=== PATIENT | female | born 1955 | race Caucasian/White ===

== ENCOUNTER → 2017-02-17 | Outpatient (CLI) | payer OTHER ==
[~2017-02-17] MED LIST: ALPRAZOLAM ER1 MG PO; ALPRAZOLAM PO; AMITRIPTYLINE H75 M1 PO; ARAVA20 MG PO; CEFDINIR300 MG PO; DAYPRO600 MG PO; DUONEB 2.5-0.5 M3 ML INH; FOSAMAX 70 MG T70 MG PO; HYDROCODON-ACE1 EAC5 PO; LATANOPROST 0.2.5 ML OPHTHALMIC; LEVAQUIN 500 M500 M2 PO; METHOTREXATE 22.5 M1 PO; MINOCIN100 MG PO; PREDNISONE 10 M10 M1 PO; PROMETHAZINE-C120 ML PO; PROTONIX40 M1 PO; SERTRALINE HCL100 MG PO; VENTOLIN HFA 1818 GM INH; XANAX1 MG PO
== END ==
LOC: ULTRA 01:31 → RAD 01:31
DX: Z12.31 Encounter for screening mammogram for malignant neoplasm of breast (principal)

== ENCOUNTER → 2018-02-22 | Outpatient (CLI) | payer OTHER | LOC: RAD 08:55 | DX: Z12.31 Encounter for screening mammogram for malignant neoplasm of breast (principal) ==

== ENCOUNTER 2018-06-30 14:20 | Inpatient (IN) | payer OTHER ==
[~2018-06-30] VITALS: Ht 147.3 cm; Wt 42.2 kg
[2018-06-30] MEDS ORDERED: PREDNISONE 5 MG5 M1 PO (17:18)
[2018-06-30] MEDS ORDERED: VENTOLIN HFA 1818 GM INH (17:19)
[2018-06-30] MEDS ORDERED: FLONASE 0.05%50 MCG NASAL (17:20)
[2018-06-30 17:30] VITALS: BP 141/65
[2018-06-30 20:00] VITALS: BP 142/78
[2018-07-01 05:18] LABS: RBC 2.63 mil/uL (4.20-5.00)
[2018-07-01 05:21] LABS: HEMATOCRIT 23.4 % (37.0-47.0); HEMOGLOBIN 7.4 gm/dL (12.0-15.0); MCH 28.2 pg (26.0-34.0); MCHC 31.7 g/dL (28.0-37.0); RDW 20.3 % (10.5-14.5); WBC 17.7 thou/uL (4.0-11.0)
[2018-07-01] MEDS ORDERED: PANTOPRAZOLE SO40 M1 PO (09:27)
[2018-07-01] MEDS ORDERED: CARAFATE 1 GM TA1 G1 PO (09:28)
[2018-07-01] MEDS ORDERED: NYSTATIN100000 UNI SW&SWALLOW (09:39)
[2018-07-01 15:17] VITALS: BP 169/93
[2018-07-01 15:48] VITALS: BP 169/93
--- NOTE | 2018-07-01 16:54 | NUR ---
Received pt this am post bloood tranfusion of 2 units. HgB now at 9.5 EGD done this morning, no issues identified. Pt is up at deng and able to ambulate on her own from the bed to the toilet. Was on clear liquid diet then transitioned to a soft then regular diet with no issues noted. Pt did compaint that she has difficulty in breathing, when checked by RT pleth is good and O2 sat are at 98%. Consulted Dr. Carey, prn done of alqprazolam given. DC instructions given to the pt. awaiting for pick up worker.
--- NOTE | 2018-07-02 11:39 | P ---
[facility] [place] [address] PROCEDURE REPORT Name: KATIE DUCKWORTH Room #: 454-P [facility] IN M.R.#: [id number] Admission: 06/30/18 Attend Phys: Matt Carey MD Discharge: 07/01/18 Date of : 51 Report #: [id number] THIS REPORT FOR: //name// CC: Matt Carey MD DATE OF SERVICE: 07/01/2018 PROCEDURE PERFORMED: Upper endoscopy with biopsies and bleeding control. HISTORY OF PRESENT ILLNESS: The patient is a 62-year-old female with recent near-syncopal episode and was noted to have severe anemia with a hemoglobin of 4.[address] Carey's office yesterday and she received 2 units of packed cells, hemoglobin in the 7 range now. She does have a history of melanotic stools, was taking Daypro b.i.d. as well as prednisone. No previous history of upper GI bleed. DESCRIPTION OF PROCEDURE: The risks and benefits of the procedure were explained to the patient, those risks including but not limited to bleeding, perforation, and the risk of sedation. She understood these risks and gave informed consent. Sedation was given using propofol per anesthesia. Next, using the standard Olympus upper endoscope, the scope was placed in the patient's mouth and advanced under direct vision through the esophagus, stomach, and into the second portion of the duodenum. The larynx was normal in appearance. The upper esophagus was normal. 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 No evidence of bleeding. At the GE junction, reflux, grade A erosive esophagitis was noted. No bleeding. Upon entering the stomach, a small hiatal hernia was noted. Overall, the gastric mucosa was normal in the fundus and upper body. In the prepyloric area, there was a large single ulcer of approximately 1.5 cm. There was no visible vessel, did have a clean white base. There was some inflammation on the edge, but no evidence of bleeding. The pylorus was normal and patent. In the duodenal bulb, there was total of 3 clean white-based ulcers. These ranged in size from 3-6 mm, no active bleeding, no visible vessel. The first portion of the duodenum was normal. In the second portion of the duodenum was a small nonbleeding AVM. I did proceed with cauterization of this. No evidence of bleeding after cautery. The scope was then brought back into the patient's stomach and biopsies were obtained to rule out H. pylori. At this point, the scope was then withdrawn and the procedure terminated. The patient tolerated the procedure well. IMPRESSION: 1. Jackelin esophagitis, likely. 2. Hiatal hernia. 3. Large prepyloric ulcer, likely source of recent gastrointestinal bleeding. 4. Three duodenal ulcers, also could have caused bleeding recently and anemia. [address] [address] PROCEDURE REPORT Name: KATIE DUCKWORTH Room #: 454-P [facility] IN M.R.#: [id number] Admission: 06/30/18 Attend Phys: Matt Carey MD Discharge: 07/01/18 Date of : 51 Report #: [id number] 5. Duodenal arteriovenous malformation, status post cautery. No active bleeding. RECOMMENDATIONS: 1. Await biopsy results. 2. Would recommend b.i.d. PPI therapy and Carafate for the next 2 weeks and then every day PPI therapy indefinitely. 3. Continue to hold Daypro at this time. 4. Plan is for repeat hemoglobin this afternoon. If stable, the patient will likely be discharged to home today. Thank you for allowing me to participate in her care. <ELECTRONICALLY SIGNED> By: Dae Tanner MD 07/02/18 1139 [id number] Dae Tanner MD /nt
--- NOTE | 2018-07-02 11:39 | HC ---
[facility] [place] [address] CONSULTATION Name: KATIE DUCKWORTH Room #: 454-P [facility] IN M.R.#: [id number] Admission: 06/30/18 Attend Phys: Matt Carey MD Discharge: 07/01/18 Date of : 51 Report #: [id number] THIS REPORT FOR: //name// CC: Matt Carey MD DATE OF SERVICE: 07/01/2018 HISTORY OF PRESENT ILLNESS: The patient is a 62-year-old female who is on Daypro on a long-term basis for rheumatoid arthritis. She is also on low dose prednisone. The patient had a syncopal episode in a background investigator's office several days ago. She had a followup with Dr. Carey, her primary, yesterday and hemoglobin in the office showed a level of 4.8. Therefore, the patient was admitted yesterday and was transfused 2 units of packed cells. Her hemoglobin today is 7.4. She does report melanotic type stools recently, feeling weak in general. Denies any abdominal pain. No previous history of GI bleed per the patient. Apparently had a colonoscopy 9 years ago that was negative. No family history of colon cancer. She was not on any PPI or antacid therapy. She denies any dysphagia or odynophagia. Her weight has been stable. PAST MEDICAL HISTORY: Rheumatoid arthritis, history of COPD. MEDICATIONS ON ADMISSION: Daypro 600 mg b.i.d., Xanax p.r.n., Ventolin, Elavil, Arava, sertraline, prednisone 5 mg, Flonase. REVIEW OF SYSTEMS: As per HPI. FAMILY HISTORY: Negative for colon cancer. ALLERGIES: TAPE. SOCIAL HISTORY: Previous smoker, denies any alcohol use. PHYSICAL EXAMINATION: VITAL SIGNS: The patient is afebrile, pulse in the 90s, blood pressure 142/78, respiratory rate 16, O2 sat 96%. GENERAL: She is alert and oriented x 3, in no acute distress. HEENT: Sclerae are nonicteric. Oropharynx is clear. NECK: Supple without lymphadenopathy. CARDIOVASCULAR: Regular rate and rhythm. CHEST: With mild decreased breath sounds bilaterally. ABDOMEN: Soft, nontender, nondistended, normoactive bowel sounds. EXTREMITIES: No cyanosis, clubbing or edema. LABORATORY DATA: WBC 17.7, hemoglobin 7.4 that is after 2 units of packed cells, platelet count is 580[place] [address] CONSULTATION Name: KATIE DUCKWORTH Room #: 454-P [facility] IN [facility]#: [id number] Admission: 06/30/18 Attend Phys: Matt Carey MD Discharge: 07/01/18 Date of : 51 Report #: [id number] ASSESSMENT AND PLAN: Anemia, recent melanotic stools. Plan is for esophagogastroduodenoscopy today, suspect upper gastrointestinal bleed. The patient has been on prednisone and Daypro. We will make further recommendations after endoscopy. <ELECTRONICALLY SIGNED> By: Dae Tanner MD 07/02/18 1139 [id number] Dae Tanner MD /nt
[2018-07-02] MEDS ORDERED: CLOTRIMAZOLE10 MG DISSOLVE (13:44)
[2018-07-02] MEDS ORDERED: BRIMONIDINE 0.110 ML (13:46)
== END 2018-07-01 18:35 | disposition home or self-care (01) | DRG 378 ==
LOC: 4W 14:20
PROVIDERS: ADMIT Family Medicine
PROC: 30233N1 Transfusion of Nonautologous Red Blood Cells into Peripheral Vein, Percutaneous Approach (ICD-10-PCS; principal; 2018-07-01)
PROC: 0DB68ZX Excision of Stomach, Via Natural or Artificial Opening Endoscopic, Diagnostic (ICD-10-PCS; principal; 2018-07-01)
PROC: 0D598ZZ Destruction of Duodenum, Via Natural or Artificial Opening Endoscopic (ICD-10-PCS; principal; 2018-07-01)
DX: K25.4 Chronic or unspecified gastric ulcer with hemorrhage (principal); B37.81 Candidal esophagitis; K31.811 Angiodysplasia of stomach and duodenum with bleeding; K26.4 Chronic or unspecified duodenal ulcer with hemorrhage; J44.9 Chronic obstructive pulmonary disease, unspecified; M06.9 Rheumatoid arthritis, unspecified; D64.9 Anemia, unspecified; K44.9 Diaphragmatic hernia without obstruction or gangrene; F41.9 Anxiety disorder, unspecified; K21.0 Gastro-esophageal reflux disease with esophagitis; Z87.891 Personal history of nicotine dependence; Z79.899 Other long term (current) drug therapy
CPT/HCPCS: 10047; 62110; 62900; 70005

== ENCOUNTER 2018-07-02 10:46 | Inpatient (IN) | payer OTHER ==
[2018-07-02] VITALS (7 sets, daily range): BP systolic 135–176; BP diastolic 71–99
[~2018-07-02] VITALS: Ht 147.3 cm; Wt 42.6 kg
--- NOTE | ~2018-07-02 | HC ---
[facility] [place] [address] CONSULTATION Name: KATIE DUCKWORTH Room #: 351-P ADM IN M.R.#: [id number] Admission: 07/02/18 ������������������ Attend Phys: Matt Carey MD Discharge: ������������������ Date of : 51 Report #: [id number] THIS REPORT FOR: //name// CC: Matt Carey DATE OF SERVICE: 07/07/2018 NEPHROLOGY CONSULTATION ATTENDING PHYSICIAN: Matt Carey M.D. REASON FOR CONSULTATION: Renal insufficiency and metabolic and respiratory acidosis. HISTORY OF PRESENT ILLNESS: This patient with long-standing rheumatoid arthritis and COPD, with known bronchiectasis was admitted to this hospital one week ago with anemia related to a prepyloric bleeding peptic ulcer, underwent blood transfusions and was discharged 2 days later. Subsequently, she was readmitted with worsening shortness of air. She was found to have pulmonary infiltrates and worsening exacerbation of COPD. She has been treated with steroids, and she was found to have an elevated serum creatinine, I believe, for the first time at 2.0, then up to 3.0 and now down to 2.4. She knows of no prior renal disease when she was hospitalized here. Four years ago, she had a creatinine as low as 0.9. She has no history of hypertension and there is no family history of renal disease. PAST MEDICAL HISTORY: She has rheumatoid arthritis, treated with Arava and sometimes with steroids. She has had multiple surgeries related to joint difficulties from her rheumatoid arthritis, including a joint replacement in her hand and plates in her wrist. MEDICATIONS: Home medications have included at times nonsteroidal anti-inflammatory drugs, Xanax p.r.n. anxiety, inhalers, amitriptyline 75 mg at bedtime, Arava 20 mg daily, sertraline 150 mg daily, prednisone 5 mg daily and Flonase nasal spray. SOCIAL HISTORY: She is a former heavy smoker, but she has quit. REVIEW OF SYSTEMS: GENERAL: She has been feeling poorly. EYES: Vision reasonably good. ENT: Very poor hearing. ENDOCRINE: No diabetes or thyroid disease. RESPIRATORY: Extreme shortness of air. CARDIAC: No chest pain, angina, history of heart disease or arrhythmias. [facility] [address] [place] [address] CONSULTATION Name: KATIE DUCKWORTH Room #: 351-P [facility] IN .R.#: [id number] Admission: 07/02/18 ������������������ Attend Phys: Matt Carey MD Discharge: ������������������ Date of : 51 Report #: [id number] GASTROINTESTINAL: Appetite fair to poor. GENITOURINARY: No dysuria, hematuria or renal stone disease. NEUROLOGIC: Just generalized weakness. MUSCULOSKELETAL: Rheumatoid arthritis, as mentioned, with lots of joint issues there. NEUROLOGIC: No seizure, syncope or stroke. PHYSICAL EXAMINATION: GENERAL: This is a chronically ill-appearing patient, looking older than her stated age. EYES: Vision is reasonably good. ENT: Very poor hearing. Mucous membranes moist. NECK: Supple. CHEST: Shows extremely tight wheezy chest. HEART: Distant, but regular. ABDOMEN: Soft and nontender, without bruits, masses or organomegaly. EXTREMITIES: Show 1- to 2+ peripheral edema. NEUROLOGIC: Generalized weakness. LABORATORY DATA: The hemoglobin is 8.1 with a white count of 14.4 and platelets of 187,000. Pulmonary arterial blood gas shows pH of 7.17, pCO2 of 45, pO2 of 66 and lactate is okay 0.79. Sodium 139, potassium 3, chloride 104, bicarbonate 19, BUN 57 and creatinine 2.4. ASSESSMENT AND PLAN: 1. Renal insufficiency, acute versus chronic, now clearly volume overloaded, although the edema may be due more to right sided than left-sided failure. I will discontinue the IV saline and administer some sodium bicarbonate tablets in an effort to improve the acidosis and thereby the circulation. I will also replace potassium with alkali in an effort also to improve the acidosis, which of course, has a respiratory as well as a metabolic component to it. For completeness, we will do renal sonography, paraprotein studies and urinary electrolytes. 2. Chronic obstructive pulmonary disease with severe exacerbation. She has fairly advanced lung disease. I do not know how much better she can get. Pulmonary will certainly work on that. 3. Rheumatoid arthritis, on Arava. 4. Metabolic and respiratory acidosis. ��������������������������������������������� ���������������������������������������� By: ��������������������������������������������� 1127 Eric Youssef MD /nt
--- NOTE | ~2018-07-02 | HC ---
[facility] [place] [address] CONSULTATION Name: KATIE DUCKWORTH Room #: 226-P ADM IN M.R.#: [id number] Admission: 07/02/18 ������������������ Attend Phys: Matt Carey MD Discharge: ������������������ Date of : 51 Report #: [id number] THIS REPORT FOR: //name// CC: Matt Carey DATE OF SERVICE: 07/10/2018 HISTORY OF PRESENT ILLNESS: The patient is a 62-year-old white female who had been admitted to [facility] with shortness of air, had a prepyloric ulcer, was admitted on 06/30/2018 and discharged on 07/01/2018. She unfortunately was readmitted on 07/02/2018 with respiratory distress, COPD, increased shortness of breath. She was diagnosed with acute respiratory failure with COPD exacerbation and had 2 recent transfusions for severe anemia, was diagnosed with deep pyloric ulcer also was noted to have renal insufficiency. She has been followed closely here at [facility] by Pulmonary Medicine as well as Nephrology. She has had a decline in her functional abilities and we are seeing her in rehabilitation medicine consultation. PAST MEDICAL HISTORY: Includes rheumatoid arthritis, right and left wrist plate, COPD, multiple finger and left hand artificial joint. ALLERGIES: TAPE. MEDICATIONS: Please see the full medication listing. This includes vitamins, herbals, and supplements per report. HABITS: Former smoker, quit greater than a year ago. No history of alcohol abuse. SOCIAL HISTORY: Lives in a house alone, did not utilize adaptive aids, are 2 steps in. Has significant arthritis, but was functional in the community without gait aids, was not on oxygen. She does have a friend that is a lady friend that lives right around the corner. REVIEW OF SYSTEMS: Did not offer any current complaints of chest pain. She does have shortness of breath with limited activities and has some wheezing. No abdominal discomfort, no current bowel or bladder changes. She is hard of hearing. Denies swallowing issues. She has the history of multi-joint arthritis and has had the multiple joint surgeries as noted above. PHYSICAL EXAMINATION: GENERAL: A 62-year-old small statured rather thin white female in no obvious distress. VITAL SIGNS: Last recorded temperature 97.9, pulse 110, respirations 20, blood pressure 177/100. She is alert, pleasant. HEENT: Appeared to be benign. She is on 2 liters nasal cannula. Facies are [address] [address] CONSULTATION Name: KATIE DUCKWORTH Room #: 226-P [facility] IN ..#: [id number] Admission: 07/02/18 ������������������ Attend Phys: Matt Carey MD Discharge: ������������������ Date of : 51 Report #: [id number] symmetric, quite hard of hearing. She has had the prior wrist and hand surgeries as noted above. EXTREMITIES: She does have some decreased range of motion. No active synovitis. Decreased end range of both shoulders. No significant discomfort with movement. NEUROLOGIC: Tone appeared to be intact. Strength of the upper extremities is probably a grade 3+ to 4-/5. DTRs are trace to 1. Lower extremities, no focal calf swelling, functional range of motion, strength is grade 4- to 3+/5. DTRs are trace to 1. Trace distal lower extremity edema. Sit to stand is min assist. Gait min assist 22 feet, no assistive device. Tends to be somewhat impulsive. ASSESSMENT: A 62-year-old white female with the following problems: 1. Pulmonary rehabilitation. 2. Acute on chronic hypoxemic hypercapnic respiratory failure. 3. Chronic obstructive pulmonary disease with exacerbation. 4. Metabolic acidosis. 5. Acute renal insufficiency. 6. Anemia, status post recent transfusions. 7. Pyloric ulcer. 8. Protein calorie malnutrition. PLAN: We are considering the patient for a possible acute 5 [facility] inpatient rehabilitation stay. We will continue to follow along with you regarding her rehab therapy needs. ��������������������������������������������� ���������������������������������������� By: ��������������������������������������������� [id number] Michael Orellana MD /PMT
[~2018-07-02 10:46] MED LIST changes: +CARAFATE 1 GM TA1 G1 PO; +FLONASE 0.05%50 MCG NASAL; +NYSTATIN100000 UNI SW&SWALLOW; +PANTOPRAZOLE SO40 M1 PO; +PREDNISONE 5 MG5 M1 PO
[2018-07-02 11:42] LABS: HEMATOCRIT 31.5 % (37.0-47.0); HEMOGLOBIN 9.8 gm/dL (12.0-15.0); MCH 26.9 pg (26.0-34.0); MCHC 31.1 g/dL (28.0-37.0); MCV 86.6 fL (80.0-100.0); RBC 3.63 mil/uL (4.20-5.00); RDW 17.9 % (10.5-14.5)
[2018-07-02 11:43] LABS: WBC 32.7 thou/uL (4.0-11.0)
[2018-07-02 11:44] LABS: PLATELET COUNT 373 thou/uL (150-400)
[2018-07-02 11:54] LABS: CALCIUM 9.4 mg/dL (8.5-10.1); POTASSIUM 3.9 mmol/L (3.5-5.1)
[2018-07-02 12:02] LABS: ALBUMIN 3.2 g/dL (3.4-5.0); TOTAL BILIRUBIN 0.6 mg/dL (<0.1-1.0); TOTAL PROTEIN 7.4 g/dL (6.4-8.2); TROPONIN-I 0.06 ng/mL (<0.06)
[2018-07-02 12:08] LABS: ABSOLUTE NEUTROPHILS 31.4 thou/uL (1.4-8.2); ANISOCYTOSIS 3+; NUCLEATED RBCS 1 /100WBC
[2018-07-02 12:09] LABS: HYPOCHROMASIA SLIGHT; POLYCHROMASIA SLIGHT
[2018-07-02 12:13] LABS: POIKILOCYTOSIS 1+; SCHISTOCYTES OCCASIONAL
[2018-07-02 12:29] LABS: BE(vivo) -7.3 mmol/L (-2 to +3); HCO3 19.3 mmol/L (22.0-26.0); PCO2 43.4 mmHg (35.0-45.0); PO2 142.3 mmHg (80.0-100.0); sO2 98.5 % (92.0-98.0)
[2018-07-02 12:30] LABS: pH 7.266 (7.360-7.450)
[2018-07-02] MEDS ORDERED: CLOTRIMAZOLE10 MG DISSOLVE (13:44)
[2018-07-02] MEDS ORDERED: BRIMONIDINE 0.110 ML (13:46)
--- NOTE | 2018-07-02 16:41 | NUR ---
ASSUMED PATIENT CARE FROM ED. UPON ARRIVAL TO UNIT PATIENTS IV WAS INFILTRATED. IV TEAM HAD TO COME REPLACE IV. ADMIT COMPLETED SEE CHARTED ASSESSMENT. PATIENT VERY ANXIOUS. XANAX ORDERED. HOME MEDS RESTARTED. STAND BY ASSIST TO COMMODE. PATIENT WAS JUST DISCHARGED YESTERDAY. PATIENT STATES THEY WERE UP ALL NIGHT BECAUSE OF SOA. IN ED PATIENTS SATS WERE IN THE 80'S. PATIENT ON 5L NC WITH SATS IN THE 90S. BREATHING TREATMENTS ORDERED. ABLE TO MAKE NEEDS KNOWN. WORKING TOWARD DC GOALS.
--- NOTE | 2018-07-02 17:37 | NUR ---
CONSULTED TO PLACE A PIV 3 TIMES IN 3 HOURS. DISCUSSED MIDLINE PLACEMENT WITH THE PATIENT AND SHE VERBALIZED UNDERSTANDING. A #4F POWERMIDLINE WAS PLACED PER HOSPITAL POLICY. LINE TRIMMED TO 12CM. DRESSING SECURED AND RELEASED FOR USE. CALLED TO RETURN 30MN LATER AFTER [facility] AND DRESSING WAS BLEEDING AND SATURATED. OLD DRESSING REMOVED AND PRESSER HELD X15MN. A NEW PRESSURE DRESSING APPLIED WELL COBAN TO SECURE. LINE IS WNL AND RELEASED FOR USE
--- NOTE | 2018-07-02 22:10 | EKG ---
[address] [address] ELECTROCARDIOGRAM REPORT Name: DONITAKATIE SINGLETON Room #: 355-P ADM IN M.R.#: [id number] ������������������ Admission: 07/02/18 ������������������ Attend Phys: Matt Carey MD Discharge: ������������������ Date of : 51 Report #: [id number] ����������������������������������������������������������������� [id number] THIS REPORT FOR: //name// [facility] ED Test Date: 2018-07-02 Test Time: 11:37:42 Pat Name: KATIE DUCKWORTH Department: Room: [facility] Gender: F Conference Translator: : 1955 Requested By: Lissa Steele Order Number: [id number] MD: Chalo Blank Measurements Intervals [place] Rate: 110 P: 75 FL: 138 QRS: 117 QRSD: 106 T: 66 QT: 322 QTc: 436 Interpretive Statements Sinus tachycardia Consider right atrial enlargement Low voltage with right axis deviation Electronically Signed On 07-02-2018 22:10:41 [employer] by Chalo Blank [email or web address] ��������������������������������������������� <ELECTRONICALLY SIGNED> ���������������������������������������� By: Chalo Blank MD ��������������������������������������������� 07/02/18 2210 1137 1137 MD AFSANEH Burleson
[2018-07-03 04:17] VITALS: BP 134/84
--- NOTE | 2018-07-03 04:17 | NUR ---
PT MAKING PROGRESS TOWARDS GOALS. PT HAD WHEEZES OVER ALL LUNG DIAL UPON INITIAL ASSESSMENT. THIS AM, LUNG DIAL CLEAR, DIMINISHED IN BOTH LOWER LOBES. PT STATES THAT SHE FEELS SHE IS BREATHING EASIER THIS MORNING.
[2018-07-03 07:13] VITALS: BP 145/85
[2018-07-03 11:15] VITALS: BP 140/94
--- NOTE | 2018-07-03 14:01 | NUR ---
ASSESSMENT-PT LIVES AT HOME ALONE. SHE WALKS ON HER OWN AND DOES HER OWN ADLS. PT USES NO EQUIPMENT AND HAS NOT HAD ANY HH SERVICES. PT DRIVES. PT DOES HER OWN COOKING, CLEANING AND LAUNDRY. PT HAS A FRIEND HONORIO IN THE AREA. FOLLOWING TO ASSIST WITH DC PLANNING.
--- NOTE | 2018-07-03 14:12 | NUR ---
ASSUMED PATIENT CARE AT 0715. A&OX4, ANXIOUS. PATIENT STATES THEY ARE FEELING BETTER TODAY THAN YESTERDAY. STAND BY ASSIST. PATIENT CALLS APPROPRIATELY. SCHEDULED BREATHING TREATMENTS. ANTIBIOTICS SCHEDULED. WORKING TOWARD DISCHARGE GOALS.
[2018-07-03 15:27] VITALS: BP 150/94
[2018-07-03 20:30] VITALS: BP 145/88
[2018-07-04 04:45] VITALS: BP 137/82
--- NOTE | 2018-07-04 05:27 | NUR ---
mild anxiety, responded well to PRN Xanax given. slept thru night. adequate oxygenation on 1.5liters, 95-97% pulse ox. able to use BSC to void. denies pain.
[2018-07-04 07:17] VITALS: BP 144/84
[2018-07-04 11:11] LABS: HEMATOCRIT 27.1 % (37.0-47.0); HEMOGLOBIN 8.6 gm/dL (12.0-15.0); MCH 27.5 pg (26.0-34.0); MCHC 31.9 g/dL (28.0-37.0); MCV 86.1 fL (80.0-100.0); RBC 3.15 mil/uL (4.20-5.00); RDW 19.2 % (10.5-14.5); WBC 21.3 thou/uL (4.0-11.0)
[2018-07-04 11:22] LABS: CALCIUM 10.1 mg/dL (8.5-10.1); POTASSIUM 3.9 mmol/L (3.5-5.1)
[2018-07-04 11:37] VITALS: BP 157/98
--- NOTE | 2018-07-04 12:15 | NUR ---
ASSUMED PATIENT CARE AT 0715. A&OX4. STAND BY ASSIST. LUNGS SOUNDING SLIGHTLY BETTER BUT STILL WHEEZY. PATIENT HAVING MULTIPLE BM'S. USING COMMODE. PATIENT TO START WALKING TO BATHROOM. POSSIBLE TRANSFER TO SENIOR SUITES. WORKING TOWARDS DISCHARGE GOALS.
[2018-07-04 15:14] VITALS: BP 160/95
[2018-07-04 20:14] VITALS: BP 143/89
[2018-07-05] VITALS (8 sets, daily range): BP systolic 127–166; BP diastolic 74–107
[2018-07-05 04:50] LABS: HEMATOCRIT 21.4 % (37.0-47.0); HEMOGLOBIN 6.8 gm/dL (12.0-15.0); MCH 27.5 pg (26.0-34.0); RDW 19.5 % (10.5-14.5)
[2018-07-05 04:51] LABS: CALCIUM 8.6 mg/dL (8.5-10.1); CREATININE 3.3 mg/dL (0.6-1.0); POTASSIUM 3.8 mmol/L (3.5-5.1)
[2018-07-05 04:52] LABS: MCHC 31.6 g/dL (28.0-37.0); RBC 2.46 mil/uL (4.20-5.00)
[2018-07-05 11:50] LABS: HCO3 15.7 mmol/L (22.0-26.0); PCO2 38.8 mmHg (35.0-45.0); PO2 99.4 mmHg (80.0-100.0); sO2 96.4 % (92.0-98.0)
[2018-07-05 11:51] LABS: pH 7.225 (7.360-7.450)
[2018-07-05 13:54] LABS: BE(vivo) -9.6 mmol/L (-2 to +3); HCO3 18.1 mmol/L (22.0-26.0); PO2 150.3 mmHg (80.0-100.0); pH 7.195 (7.360-7.450); sO2 98.4 % (92.0-98.0)
--- NOTE | 2018-07-05 14:18 | NUR ---
on-going assessment: patient had critical abg today. cm spoke with attending and pt/ot ordered and evals pending. cm will continue to follow to assist as needed.
--- NOTE | 2018-07-05 14:54 | NUR ---
Assumed care of patient at 0700. Patient is drowsy this morning, but arouses with stimuli. Appears alert and oriented, although [place] and forgetful at times. Seems anxious and can be impulsive at times, needs multiple cues when getting out of bed to use BSC. Vitals stable. Patient seemed to increase in lethargicness throughout morning, seems to be harder to arouse and patient asks, "why am I so sleepy?" Patient also continued to have very wheezy lung sounds - since early this morning. Dr. Carey notified and ABGs ordered - critical results. Order for Bipap and pulmonary consult. Placed on Bipap, tolerating so far. Dr. Reyes saw patient, ordered repeat ABG - pH still critical. To start on calcium carbonate and bipap setting changes. RT updated. Patient appears more alert and responsive this afternoon. Lungs sound less wheezy. Hemoglobin low today; transfused one unit PRBCs without any reactions noted. Onetime dose of 20 mg Lasix given post transfusion. Patient up with one assist to BSC. With 2 moderate sized loose BMs today. C.diff sample was cancelled by lab so discontinued isolation. Fall precautions in place. Not progressing towards POC. Will continue to monitor.
[2018-07-06 04:00] VITALS: BP 146/79
--- NOTE | 2018-07-06 04:40 | NUR ---
Patient making progress towards outcome goals. Tolerating BIPAP sats mid to upper 90's. Very winded with any activity. IVFluids infusing. Uses call light appropriately for needs. Vital signs and rhythm stable.
--- NOTE | 2018-07-06 05:30 | NUR ---
Patient tired of being on BIPAP all night, request to be taken off. Place on 2L/NC sats upper 90's, very winded, SOA and desats in mid 80's with any activity.
[2018-07-06 05:48] LABS: HEMOGLOBIN 8.1 gm/dL (12.0-15.0); MCH 28.3 pg (26.0-34.0); MCHC 32.4 g/dL (28.0-37.0); MCV 87.4 fL (80.0-100.0); RBC 2.86 mil/uL (4.20-5.00)
[2018-07-06 05:50] LABS: RDW 17.4 % (10.5-14.5); WBC 14.4 thou/uL (4.0-11.0)
[2018-07-06 06:00] LABS: CALCIUM 8.6 mg/dL (8.5-10.1)
[2018-07-06 07:30] VITALS: BP 159/81
[2018-07-06 11:28] VITALS: BP 174/98
--- NOTE | 2018-07-06 14:25 | NUR ---
ASSUMED PT CARE AT 0700. ALERT AND ORIENTED, ALTHOUGH SOMEIMTES FORGETFUL AND IMPULSIVE. HARD OF HEARING. VITAL SIGNS STABLE. UPON ASSESSMENT PATIENT LUNG SOUNDS DIMINISHED AND VERY WHEEZY. PATIENT ASKED IF HER LUNGS SOUNDED ANY BETTER AND STATED SHE FELT THAT SHE IS DOING BETTER COMPARED TO YESTERDAY. DOCTOR WANTED PATIENT UP AND WALKING TODAY WITH ASSISNANCE. PATIENT CURRENTLY SITTING UP IN CHAIR. PT/OT VISITED PATIENT TODAY. NO COMPLAINTS OF PAIN. PATIENT PROGRESSING TOWARDS GOAL.
--- NOTE | 2018-07-06 14:37 | NUR ---
Assumed care of patient at 0700. Vitals have been stable. Denies pain. Patient has been alert and oriented this shift, more alert than yesterday. Extremely [place]. Patient reports feeling improved. Has been off bipap since early this morning and has been maintaining oxygen saturations on 2L NC. Does desat down into mid 80s with activity. SOB with activity. Remains wheezy in all lung webster, more with activity. Working with therapies today; has been up in chair this afternoon. Up with SBA. Using BSC to void. No BMs today. Slowly progressing towards POC. Will continue to monitor.
--- NOTE | 2018-07-06 15:03 | NUR ---
on-going assessment: CM REVIEWED CHART AND MET WITH PATIENT AT THE BEDSIDE. PT IS SLOWLY PROGRESSING TOWARDS GOALS. PT IS CURRENTLY WEARING 2L OXYGEN AND DOES NOT HAVE OXYGEN AT HOME. PT REMAINS ON IV ANBX AND STEROIDS AT THIS TIME. CM WILL CONTINUE TO FOLLOW TO ASSIST NEEDED.
[2018-07-06 15:39] VITALS: BP 147/99
[2018-07-06 19:28] VITALS: BP 166/93
[2018-07-06 19:29] VITALS: BP 177/80
[2018-07-07] VITALS: BP 167/95
[2018-07-07 03:50] VITALS: BP 150/85
--- NOTE | 2018-07-07 05:47 | NUR ---
ASSUMED CARE OF PT AT 1900. A&Ox4, COOPERATIVE. SBP ELEVATED WAS 177 AND 167 DOCUMENTED. PHYSICIAN NOTIFIED, WILL SEE HER TODAY. REQUESTED XANAX SEVERAL TIMES. EDUCATION OF HOLD GIVEN D/T RESP STATUS, NOTIFIED PHYSICIAN OF REQUEST. MAINTAINED O2 AT 98-100 AT REST OVER NOC. DESAT'S W/ TRANSFER TO BSC TO HIGH 80'S BUT RECOVERS QUICKLY. BREATHING TIGHTER AND WHEEZY. AT 0530 WHEN UP TO COMMODE, RT CONTACTED AND BREATHING TX PROVIDED. STEADY TRANSFERS, SBA. C/O DECREASED HEARING. AUDITORY CANAL ASSESSED, SEVERELY IMPACTED W/ DARK BROWN CERUMEN, UNABLE TO VISUALIZE TM W/ OTOSCOPE. PHYSICIAN NOTIFIED. WILL SEE TODAY. SLOWLY PROGRESSING TOWARDS POC GOALS. WILL CONTINUE TO PROVIDE CARE AND MONITOR.
[2018-07-07 06:31] LABS: BE(vivo) -11.5 mmol/L (-2 to +3); HCO3 16.3 mmol/L (22.0-26.0); PCO2 45.7 mmHg (35.0-45.0); PO2 66.3 mmHg (80.0-100.0); sO2 87.7 % (92.0-98.0)
[2018-07-07 06:32] LABS: pH 7.171 (7.360-7.450)
[2018-07-07 07:43] LABS: CREATININE 2.4 mg/dL (0.6-1.0)
[2018-07-07 07:53] LABS: ALBUMIN 2.2 g/dL (3.4-5.0); TOTAL BILIRUBIN 0.3 mg/dL (<0.1-1.0); TOTAL PROTEIN 6.1 g/dL (6.4-8.2)
[2018-07-07 08:05] VITALS: BP 138/82
--- NOTE | 2018-07-07 12:27 | NUR ---
ON-GOING ASSESSMENT: CM REVIEWED CHART AND SPOKE WITH ATTENDING. PT IS SLOWLY PROGRESSING TOWARDS DISCHARGE GOALS. PT USING BIPAP AT HS AND ON IV STEROIDS/ANBX AND IS STILL ON 2L OXYGEN AND DOES NOT HAVE OXYGEN ARRANGED AT HOME. PT DOES NOT FEEL SHE WILL NEED HOME HEALTH AT DISCHARGE. CM SPOKE WITH ATTENDING WHO STATES PATIENT WILL BE HERE THROUGH THE WEEKEND. CM WILL CONTINUE TO FOLLOW TO ASSIST NEEDED.
[2018-07-07 16:43] VITALS: BP 159/74
--- NOTE | 2018-07-07 18:25 | NUR ---
ASSUMED PATIENT CARE AT 0700. A/O X4. ANXIOUS. OFF BIPAP AT 0930. PATIENT TOLERATED ON 4L/NC. UP WITH STB. SOB WITH EXERTION. POOR APPATIE. SLOWLY TOWARDS POC GOALS.
[2018-07-07 18:38] LABS: URINE BILIRUBIN NEGATIVE (Negative); URINE BLOOD 3+ (Negative); URINE CLARITY CLEAR; URINE COLOR YELLOW; URINE GLUCOSE-RANDOM* NEGATIVE (Negative); URINE KETONES NEGATIVE (Negative); URINE LEUKOCYTES NEGATIVE (Negative); URINE NITRITE NEGATIVE (Negative); URINE PROTEIN (DIPSTICK) 1+ (Negative); URINE SPECIFIC GRAVITY 1.025 (1.005-1.035); URINE UROBILINOGEN 0.2 E.U./dl (0.2-1.0)
[2018-07-07 18:41] LABS: URINE CREATININE-RANDOM* 63.8 mg/dL
[2018-07-07 18:54] LABS: CRYSTALS None Seen /LPF (None Seen); URINE WBC 0-5 Rare /HPF (0-5)
[2018-07-07 18:55] LABS: BACTERIA None Seen /HPF (None Seen); HYALINE CASTS 0-3 Few /LPF (None Seen); SQUAMOUS >10 Many /LPF (0-3); URINE RBC 3-10 Few /HPF (0-2)
[2018-07-07 20:54] VITALS: BP 141/80
[2018-07-08 04:27] VITALS: BP 120/60
[2018-07-08 04:46] LABS: HEMATOCRIT 24.6 % (37.0-47.0); HEMOGLOBIN 8.1 gm/dL (12.0-15.0); RDW 18.3 % (10.5-14.5)
[2018-07-08 04:48] LABS: MCH 28.9 pg (26.0-34.0); MCHC 32.9 g/dL (28.0-37.0); MCV 87.8 fL (80.0-100.0); PLATELET COUNT 196 thou/uL (150-400); WBC 20.8 thou/uL (4.0-11.0)
[2018-07-08 04:59] LABS: ALBUMIN 2.1 g/dL (3.4-5.0); CALCIUM 9.5 mg/dL (8.5-10.1); CREATININE 2.4 mg/dL (0.6-1.0); PHOSPHORUS 4.6 mg/dL (2.5-4.9); POTASSIUM 3.7 mmol/L (3.5-5.1)
[2018-07-08 05:37] LABS: ABSOLUTE NEUTROPHILS 17.1 thou/uL (1.4-8.2); ANISOCYTOSIS 2+; METAMYELOCYTES 8 %; MYELOCYTES 4 %; NUCLEATED RBCS 2 /100WBC; OVALOCYTES OCCASIONAL
[2018-07-08 05:38] LABS: SCHISTOCYTES 1+
[2018-07-08 05:44] LABS: HCO3 16.6 mmol/L (22.0-26.0); PCO2 39.4 mmHg (35.0-45.0); pH 7.242 (7.360-7.450); sO2 97.3 % (92.0-98.0)
[2018-07-08 07:29] VITALS: BP 145/81
--- NOTE | 2018-07-08 07:30 | NUR ---
ASSUMED CARE OF PT AT 1900. A&Ox4, COOPERATIVE. CONTINUES SOA W/ TRANSFER TO BSC. CRITICAL ABG RESULTS AGAIN THIS AM CALLED TO DR SAM, NO NEW ORDERS. AUDITORY CANALS CONTINUED IMPACTION, DID REMOVE TINY AMOUNT OF CERUMEN W/ QTIP BUT HESITANT TO PUSH WAX BACK FARTHER. NO ACUTE DISTRESS. SLEPT A LITTLE MORE THAN THE PREVIOUS NOC SHIFT. PROGRESSING TOWARDS POC GOALS.
[2018-07-08 11:21] VITALS: BP 136/82
--- NOTE | 2018-07-08 14:42 | NUR ---
Assumed care of Pt at 0700. Pt alert and oriented in no acute distress, somewhat anxious at times, very hard of hearing due to apparent wax build up. on bipap overnight, now breathing comfortably on supplemental oxygen. up w/ sba to bsc. vitals stable. not voicing any particular concerns. tachycardic with activity. pt progressing toward poc goals.
[2018-07-08 15:39] VITALS: BP 139/74
[2018-07-08 19:49] VITALS: BP 140/69
[2018-07-09 05:08] VITALS: BP 153/93
--- NOTE | 2018-07-09 05:13 | NUR ---
PATIENT ASSSESSED AND IS ALERT X 4. IS SLEEPY THIS START OF THIS SHIFT. TELE- SHOWS ST. IS ON A CONT PULSE OXIMTER. 02 SAT 98%. ON 2LNC. ASKS FOR HELP TO BATHROOM TO BSC WITH STAND BY ASSIST X 1. LEFT UPPER ARM IV INFUSING WELL. LUNGS COURSE BILATERAL. IV IN LEFT UPPER ARM IS A MIDLINE THAT DFRAWS WELL. NO EDEMA NOTED. IS VERY [place]. TAKES DIET WELL. SWOLLOW OK. 02 AT 2LNC. IS ON BIPAP AT HS. WANTING HER EARS CLEAN OUT HAS ALOT OF WAX IN THEM.HAS NO OTHER SKIN ISSUES. CONT PLAN OF CARE. DENIES ANY PAIN OR SOA. IS MORE ALERT SINCE MIDNIGHT.
[2018-07-09 06:38] LABS: CALCIUM 9.7 mg/dL (8.5-10.1); CREATININE 2.2 mg/dL (0.6-1.0); PHOSPHORUS 3.4 mg/dL (2.5-4.9); POTASSIUM 3.7 mmol/L (3.5-5.1)
[2018-07-09 08:36] VITALS: BP 140/72
[2018-07-09 11:57] VITALS: BP 127/64
[2018-07-09 15:50] VITALS: BP 154/82
[2018-07-09 19:54] VITALS: BP 161/100
[2018-07-10 00:10] VITALS: BP 138/86
[2018-07-10 04:45] VITALS: BP 140/79
--- NOTE | 2018-07-10 05:09 | NUR ---
Ambulated to use the bathroom at beginning of shift. 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 Rechecked later once she rested and BP 138/60. O2 at 1L/NC with O2 sat in the low 90's. She does get very short of breath with minimal exertion. O2 at 2L while ambulating to bathroom. Voided per hat and had bm x2. Pt. is impulsive at times and gets anxious. She stated she slept fair during the night. She requested to take her am meds early so she could back to sleep. Making progress towards care plan goals.
[2018-07-10 06:27] LABS: HEMATOCRIT 25.3 % (37.0-47.0); HEMOGLOBIN 8.1 gm/dL (12.0-15.0); MCH 28.3 pg (26.0-34.0); MCV 88.5 fL (80.0-100.0); RBC 2.86 mil/uL (4.20-5.00); RDW 19.1 % (10.5-14.5); WBC 18.5 thou/uL (4.0-11.0)
[2018-07-10 06:35] LABS: ALBUMIN 2.2 g/dL (3.4-5.0); CALCIUM 9.9 mg/dL (8.5-10.1); CREATININE 1.9 mg/dL (0.6-1.0); PHOSPHORUS 3.2 mg/dL (2.5-4.9); POTASSIUM 4.1 mmol/L (3.5-5.1)
[2018-07-10 07:30] VITALS: BP 177/100
--- NOTE | 2018-07-10 10:27 | NUR ---
care of pt assumed this am @ ~0700. pt noted to be awake and ready to talk w/ her doctors in hopes of going home today. pt denies any co pain, n/v/d today. pt does co soa especially w/ activity. o2 @ [address] burks at this am. status change to ms and dc continuous pulse oximetry per dr. burks. pt up w/ x1 sba to the [facility]. pt w/ a fair appetite for breakfast this am. pt still w/ [place] due to wax build up in her ears, she requested dr. burks clean them out today, he stated he could do that in his office, but would try to send his student to clean out her ears later today. dr. burks spoke of possible dc tomorrow. pt will be tx to [facility] room 226 late this am. report called @ 1025 to Annie/yesika. all pt's belongings gathered by staff for transport. tele off. iv left intact.
--- NOTE | 2018-07-10 11:10 | NUR ---
PATIENT TRANSFERRED TO UNIT FROM #351 TO ROOM #226. REPORT GIVEN BY NURSE HANKINS. PATIENT ORIENTED TO UNIT AND SETTLED. OXYGEN AND HUMIDIFIER CONNECTED SHE WEARS 2L O2.
[2018-07-10 11:14] VITALS: BP 192/84
[2018-07-10 13:12] LABS: KAPPA FREE LIGHT CHAINS 19.8 mg/L (3.3-19.4); KAPPA/LAMBDA RATIO 0.94 (0.26-1.65); LAMBDA FREE LIGHT CHAINS 21.1 mg/L (5.7-26.3)
--- NOTE | 2018-07-10 14:43 | NUR ---
Following for d/c planning needs. Pt evaluated for [facility] and has been accepted. Dr Carey said she is not medically ready today--perhaps Tuesday. Notified [facility] regional economic liaison. Will remain available to assist as needed.
[2018-07-10 18:50] VITALS: BP 158/82
--- NOTE | 2018-07-11 04:57 | NUR ---
Patient remains A&Ox4. Swallows meds whole w/o difficulty. Remains Cont. B&B; ambulates w/ asst of 1; gait steady. 02 intact at 2LNC; SOB noted upon excertion. Reamins MINTO. Last BM 07/10/2018. Breathing txs, as scheduled, w/o difficulty. Remains on IVABT/Resps; no adverse reactions noted. Midline noted to LFA; IV flushed w/o difficulty; + blood return noted. Non - productive cough noted. 1+ edema noted to BLEs; Patient encouraged to elevate BLEs; as tolerated. Patint has no c/o pain or discomfort. No s/s of acute distress noted. Patient in bed w/ call light/desired belongings within reach. PO fluids encouraged. Will continue to monitor.
[2018-07-11 09:09] LABS: GLOBULIN TOTAL 2.8 g/dL (2.2-3.9); M-SPIKE Not Observed g/dL (Not Observed)
[2018-07-11 10:39] VITALS: BP 152/78
--- NOTE | 2018-07-11 10:44 | NUR ---
ASSUMED PT CARE AT 0700. ASSESSMENT COMPLETED AND IS CHARTED. PT TACHYCARDIC AT 109. SEEMS ANXIOUS AND IS NOTICEABLY LABORED IN HER BREATHING. ALL OTHER VITAL SIGNS STABLE. WHEEZES NOTED THROUGHOUT ANTERIOR. PT REPORTS NON-PRODUCTIVE COUGH. O2 VIA NC AT 1.5 L. MIDLINE TO LEFT UPPER ARM PATENT WITH BLOOD RETURN. WILL CONTINUE WITH CURRENT CARE AND MONITOR RESPIRATORY STATUS.
[2018-07-11] MEDS ORDERED: IPRAT-ALBUT 0.5-3 ML INH (11:00)
[2018-07-11] MEDS ORDERED: CALTRATE-600 W1 EACH PO (11:01)
[2018-07-11] MEDS ORDERED: PREDNISONE 20 M20 M1 PO (11:02)
--- NOTE | 2018-07-11 13:04 | NUR ---
PT CONTINUES TO HAVE SHORTNESS OF BREATH WITH ANY ACTIVITY. MAINTAINS SATS IN 90'S. O2 STILL AT 1.5L. ALSO REMAINS TACHYCARDIC IN 110'S. ORDERS RECEIVED TO TRANSFER TO . WILL TRANSFER BETWEEN 3-4:00.
--- NOTE | 2018-07-11 15:37 | NUR ---
DISMISSED PT TO INPATIENT REHAB UNIT VIA WHEELCHAIR WITH [facility].
== END 2018-07-11 15:33 | DRG 871 ==
LOC: ER 10:46 → 3W 12:49 → SICU 12:49 → EROBS 12:49 → 3W 13:03 → ENTRNSPT 07-10 10:45 → EDTRNSPTSTS 07-10 10:53 → SICU 07-10 10:56
PROVIDERS: Hospitalist; Internal Medicine Nephrology; Nurse Practitioner Family; Pediatrics; ADMIT Family Medicine
PROC: 05HY33Z Insertion of Infusion Device into Upper Vein, Percutaneous Approach (ICD-10-PCS; principal; 2018-07-02)
PROC: 5A09357 Assistance with Respiratory Ventilation, Less than 24 Consecutive Hours, Continuous Positive Airway Pressure (ICD-10-PCS; 2018-07-05)
PROC: 5A09357 Assistance with Respiratory Ventilation, Less than 24 Consecutive Hours, Continuous Positive Airway Pressure (ICD-10-PCS; 2018-07-06)
PROC: 30233R1 Transfusion of Nonautologous Platelets into Peripheral Vein, Percutaneous Approach (ICD-10-PCS; 2018-07-07)
DX: A41.9 Sepsis, unspecified organism (principal); K25.4 Chronic or unspecified gastric ulcer with hemorrhage; J18.9 Pneumonia, unspecified organism; J96.21 Acute and chronic respiratory failure with hypoxia; J96.22 Acute and chronic respiratory failure with hypercapnia; J44.1 Chronic obstructive pulmonary disease with (acute) exacerbation; E87.1 Hypo-osmolality and hyponatremia; N17.9 Acute kidney failure, unspecified; Z68.1 Body mass index [BMI] 19.9 or less, adult; E87.4 Mixed disorder of acid-base balance; E46 Unspecified protein-calorie malnutrition; J44.0 Chronic obstructive pulmonary disease with (acute) lower respiratory infection; M06.9 Rheumatoid arthritis, unspecified; F41.9 Anxiety disorder, unspecified; E87.6 Hypokalemia; Y95 Nosocomial condition; D50.0 Iron deficiency anemia secondary to blood loss (chronic); I10 Essential (primary) hypertension; H91.90 Unspecified hearing loss, unspecified ear; D64.9 Anemia, unspecified; Z87.891 Personal history of nicotine dependence; Z79.51 Long term (current) use of inhaled steroids; Z79.899 Other long term (current) drug therapy; Z88.8 Allergy status to other drugs, medicaments and biological substances
CPT/HCPCS: 10879; 15001; 15002; 27000

== ENCOUNTER 2018-07-11 12:47 | Inpatient (IN) | payer OTHER ==
[~2018-07-11] VITALS: Ht 147.3 cm; Wt 49.0 kg
[~2018-07-11 12:47] MED LIST changes: +BRIMONIDINE 0.110 ML; +CALTRATE-600 W1 EACH PO; +CLOTRIMAZOLE10 MG DISSOLVE; +IPRAT-ALBUT 0.5-3 ML INH; +PREDNISONE 20 M20 M1 PO
[2018-07-11 16:45] VITALS: BP 147/91
--- NOTE | 2018-07-11 17:00 | NUR ---
RECEIVED REPORT FROM SHERICE AT SICU. NOTICED PT WAS ON IV ABT THIS AM AND CALLED DR. BROOKS TO VERIFY IF PT STILL NEEDS TO BE ON ABT. RECEIVED T.O FOR CEFDINIR 300MG BID FOR PNEUMONIA 1 WEEK BEFORE PT ADMITED TO REHAB ORDER ENTERED ORDERED.
[2018-07-11 19:18] VITALS: BP 142/88
--- NOTE | 2018-07-11 19:26 | NUR ---
PT ADMITTED TO ROOM 513 FROM [facility] FOR ACUTE COPD, HYPOXEMIA, HYPERCARPNIC RESPIRATORY FAILURE. SHE IS ON 2L OF OXGYGEN AND C/O SOB WITH EXERTION. DR. BROOKS CALLED THIS WRITTER TO PUT PT ON CEFDINIR 300MG BID FOR PNEUMONIA 1 WEEK BEFORE PT ADMITED TO REHAB ORDER ENTERED ORDERED. PT WAS ADMITTED TO HOSPITAL LAST WEAK FOR PYLORIC ULCER, ANEMIA D/T GI BLEED AND AMELIE. PT LEAVES HOME BY SELF, ADL INDEPENDENTLY, DRIVING AND COOKING FOR HER SELF. HAS NO FAMILY EXCEPT FRIENDS AND SHE USED TO VOLUNTEER AT [facility] FOR 3-4 YEARS. PATIENT IS ALERT AND ORIENTED X4, FORGETFUL AT TIME, [place], SOB WITH EXERTION. 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 REASSESSMENT PER CHART. HAS VERY DRY FEET'S PALMS APPLIED LOTION. HAS BRUISES ON ABD AND LEFT ARM, OLD SCRABBED ON RIGHT KNEE, OLD SORE ON RIGHT HAND. MID LINE PULLED BEFORE ADMIT TO REHAB ON LEFT UPPER ARM HAS SOME BLEEDING. BORDER OPTIFOAM ON AT THIS MOMENT. LUNGS ARE WHEEZING, CONTINUE TO BE ON BREATHING TX. ABD IS SOFT WITH BSX4. HAD LARGE LOOSE STOOL PER NURSE AT SICU. PATIENT VOIDS ALICIA COLORED URINE WITH LOOSE GREEN BM IN BSC. PATIENT IS DIABETIC DIET PER PT REQUESTED EVEN SHE IS NOT DM. LEGS ARE PUFFY HAS 2 + EDMA. ORDERED TEDHOSE FROM . OFFERED SUPPORTIVE CARE, DISCUSSED ABOUT FALL RISK. PT SIGNED ADMISSION CONSENTS. HER GOAL IS TO GO HOME, DOESN'T WANT TO BE HERE. FEELS ASHAMED TO BE IN REHAB. OFFERED SUPPORTIVE CARE AND ENCOURAGED PT TO WORK WITH THERAPISTS TO DC GOALS. PT SAID HER EARS FEELS FULL. C/O KNEE ARTHRITIS.PT WAS ON IV ABT FOR PNEUMONIA. CALLED AND OBTAI FOR V FALL AND SAFETY PROTOCOLS IN PLACE. DENIES ANY PAIN AT THIS TIME. PT/OT/ST EVALS TO BE DONE IN THE A.M. MEDS LISTS FAXED TO PHARMACY. PHYSICIANS CONSULT WERE NOTIFIED. GAVE REPORT TO NIGHT NURSE CONTINUE TO MONITOR.
--- NOTE | 2018-07-12 04:04 | NUR ---
Assumed care of pt at 1915. Pt alert and oriented x4. Pt anxious, concerned about increase in weight and edema in upper and lower extremities. Lungs coarse with scattered wheezes. O2 on at 2 liters by nasal cannulae. Dean was notified and CXR done. Lasix 40mg given IVP, pt has had 800cc clear urine out thus far. Transfers to [facility] with assist of one using gait belt. Pt denies pain or nausea. Bilat feet and ankles with 3+ pitting edema, bilat upper extremities with 2+ edema. Will continue to monitor I&O and respiratory status closely. Pt has appeared to be sleeping when checked on hourly rounds.
[2018-07-12 06:37] LABS: HEMATOCRIT 26.7 % (37.0-47.0); HEMOGLOBIN 8.5 gm/dL (12.0-15.0); MCH 28.5 pg (26.0-34.0); MCHC 31.9 g/dL (28.0-37.0); MCV 89.3 fL (80.0-100.0); RBC 2.98 mil/uL (4.20-5.00); RDW 20.1 % (10.5-14.5); WBC 16.3 thou/uL (4.0-11.0)
[2018-07-12 06:47] LABS: CALCIUM 9.7 mg/dL (8.5-10.1); CREATININE 1.6 mg/dL (0.6-1.0); POTASSIUM 4.4 mmol/L (3.5-5.1)
[2018-07-12 09:30] VITALS: BP 157/98
--- NOTE | 2018-07-12 10:14 | NUR ---
cm visited with pt at bedside, she up working with ot. pt is a & o x 3, pleasant and able to make her needs know. intro to cm, team meeting and transition of care. pt reports " home alone, 2-3 steps into home, stairs to basement to laundry, can get help with laundry for have service do it. cooking, cleaning, independent and still driving. have grab bars in bathroom and bath bench. volunteer outside home. have home nebulizer. no home o2. pt gets soa with act. pt lower ext being elevated rt swelling. will cont following as needed for dc needs.
--- NOTE | 2018-07-12 14:32 | NUR ---
Patient participated in community reintegration on 07/12/18 with Physical Therapy. Refer to documentation by PT.
--- NOTE | 2018-07-12 16:25 | NUR ---
ASSUMED PT CARE AT 0715. NIGHT RN SAID PT C/O LEGS SWELLING, HAD HARD TIME TO GET IV IN. PT HAD 1 DOSE OF LASIX 40MG WENT TO [facility] 5X AND HAD 1200CC OUT LAST NIGHT. DR. BROOKS IS OUT OF TOWN. NOTIFIED KAYDEN ABOUT EDEMA ON LEGS AND ARMS. SHE WAS WEIGHT 123LBS. RECHECK THIS AM 107LBS. PT STILL HAS SHORTNESS OF AIR WHILE OT/PT WORKING WITH HER. KAYDEN CAME TO TALKED TO PT AND ORDER FOR LASIX, BNP 1467, PT STILL TACHYCARDIA, B/P 157/98. NOT ON ANY B/P MEDS AT THIS MOMENT. KAYDEN IS AWARE AND DOESN'T WANT TO ASK B/P MED AT THIS MOMENT. CONTINUE TO MONITOR FOR B/P AND HR. REASSESSMENT PER CHART. LUNG SOUNDS STILL COARSE WITH SCATTERED WHEEZING. SAT 99% ON 2L. CONTINUE TO DIURRETIC WITH CLEAR URINE. EDEMA ON ARMS ARE BETTER. BILATERAL FEET AND ANKLES WITH 2+PITTING EDEMA NOW. OT GAVE PT BATH AND PUT LIZZIE HOSE ON. OFFERED SUPPORTIVE CARE. MEDS GIVEN ORDERED. LABS REVIEWED. FALL PRECAUTION IN PLACE. CALL LIGHT WITHIN REACH. PT USES SBC. CHECK FREQUENTLY FOR NEEDS AND SAFETY. CONTINUE TO MONITOR I&O, AND RESPIRATORY STATUS CLOSELY.
[2018-07-12 19:39] VITALS: BP 124/62
--- NOTE | 2018-07-13 01:00 | NUR ---
PT ASSESSMENT COMPLETED AND VSS. MEDS GIVEN ORDERED AND WELL TOLERATED. FALL PRECAUTIONS IN PLACE. UP TO THE BSC WITH ASST/GAIT/WALKER. VOIDING LARGE AMOUNT OF YELLOW URINE. SLEEPING WELL. WILL CONTINUE TO MONITOR FREQUENTLY.
[2018-07-13 05:07] LABS: CREATININE 1.5 mg/dL (0.6-1.0); POTASSIUM 3.6 mmol/L (3.5-5.1)
[2018-07-13 07:30] VITALS: BP 138/75
--- NOTE | 2018-07-13 09:13 | 2DMMODE ---
[facility] [address] [place] [address] 2 D/M-MODE ECHOCARDIOGRAM Name: KATIE DUCKWORTH Room #: 513-P ADM IN M.R.#: [id number] ������������� Admission: 07/11/18 ������������� Attend Phys: Michael Orellana, Discharge: ��� ������������� ��� Date of : 51 Date of Service: 07/13/18 0912 �� Report #: [id number] �������� ��������������������������������������������[id number] THIS REPORT FOR: //name// APPROVED REPORT Study performed: 07/13/2018 08:23:04 EXAM: Comprehensive 2D, Doppler, and color-flow Echocardiogram Patient Location: Echo lab Room #: 3 Status: routine BSA: 1.51 HR: 96 bpm BP: 124/62 mmHg Rhythm: NSR Other Information Study Quality: Adequate/low window Indications Dyspnea Edema, elevated BNP. Hx: COPD 2D Dimensions RVDd: 28.16 mm IVSd: 8.42 (7-11mm) LVOT Diam: 20.17 (18-24mm) LVDd: 34.34 mm PWd: 6.95 (7-11mm) LVDs: 20.40 (25-40mm) Aortic Root: 29.49 mm Volumes Left Atrial Volume (Systole) Single Plane 4CH: 21.61 mL Single Plane 2CH: 27.59 mL LA ESV Index: 17.00 mL/m2 Aortic Valve AoV Peak Christopher.: 1.26 m/s AO Peak Gr.: 6.36 mmHg LVOT Max P.47 mmHg LVOT Max V: 1.17 m/s WILTON Vmax: 2.96 cm2 Mitral Valve E/A Ratio: 0.8 MV Decel. Time: 131.72 ms [facility] [address] [place] [address] 2 D/M-MODE ECHOCARDIOGRAM Name: KATIE DUCKWORTH Room #: 513-P [facility].#: [id number] ������������� Admission: 07/11/18 ������������� Attend Phys: Michael Orellana, Discharge: ��� ������������� ��� Date of : 51 Date of Service: 07/13/18 0912 �� Report #: [id number] �������� ��������������������������������������������[id number] MV E Max Christopher.: 1.31 m/s MV A Christopher.: 1.62 m/s MV PHT: 38.20 ms IVRT: 83.04 ms Pulmonary Valve PV Peak Christopher.: 0.99 m/s PV Peak Gr.: 3.92 mmHg Pulmonary Vein P Vein S: 0.75 m/s P Vein D: 0.47 m/s P Vein S/D Ratio: 1.60 Tricuspid Valve TR Peak Christopher.: 3.21 m/s RAP Estimate: 10.00 mmHg TR Peak Gr.: 41.16 mmHg PA Pressure: 51.00 mmHg Left Ventricle The left ventricle is normal size. There is normal LV segmental wall motion. There is normal left ventricular wall thickness. The left ventricular systolic function is normal. LVEF is 55-60%. Mild diastolic dysfunction is present (impaired relaxation pattern). Right Ventricle The right ventricle is normal size. The right ventricular systolic function is normal. Atria The left atrium size is normal. The right atrium size is normal. Aortic Valve The aortic valve is normal in structure. No aortic regurgitation is present. There is no aortic valvular stenosis. Mitral Valve The mitral valve is normal in structure. Trace to mild mitral regurgitation. No evidence of mitral valve stenosis. Tricuspid Valve The tricuspid valve is normal in structure. Trace to mild tricuspid regurgitation. Estimated PAP is 50mmHg. Pulmonic Valve [facility] [address] [place] [address] 2 D/M-MODE ECHOCARDIOGRAM Name: KATIE DUCKWORTH Room #: 513-P [facility] IN M.R.#: [id number] ������������� Admission: 07/11/18 ������������� Attend Phys: Michael Orellana, Discharge: ��� ������������� ��� Date of : 51 Date of Service: 07/13/18 0912 �� Report #: [id number] �������� ��������������������������������������������[id number] Pulmonic valve is not well visualized. Trace pulmonic regurgitation. Great Vessels The aortic root is normal in size. IVC is normal in size and collapses <50% with inspiration. Pericardium Trace to small pericardial effusion Left and right pleural effusions noted. <Conclusion> The left ventricular systolic function is normal. There is normal LV segmental wall motion. LVEF is 55-60%. Mild diastolic dysfunction The aortic valve is normal in structure. No aortic regurgitation or stenosis. The mitral valve is normal in structure. Trace to mild mitral regurgitation. Trace to mild tricuspid regurgitation. Estimated pulmonary artery pressure of 45-50mmHg. Trace to small pericardial effusion ��������������������������������������������� <ELECTRONICALLY SIGNED> ���������������������������������������� By: Dino Qiu MD, [facility] ��������������������������������������������� 07/13/18911 1 1 Dino Qiu MD, FAC /INF
--- NOTE | 2018-07-13 15:21 | NUR ---
ASSUMED CARES AT 0700. PT AWAKE, A/O*4 BUT FORGETFUL. C/O BACK PAIN BUT REFUSED VOLTAREN GEL. LUNG SOUNDS COARSE, CRACKLES AND WHEEZY, ON 2L OXYGEN VIA NC WITH SATS >92%, C/O SOB WITH EXERSION AND NEEDED BREAKS IN BTN THERAPY. UNABLE TO COMPLETE FULL PT THERAPY TODAY R/T SOB. HS S1S2, 2+ PITTING BLE EDEMA, 1+ UPPER EXTREMITY EDEMA, PULSES 2+/2+. LIZZIE ANNE ON LAST NOC, DC'D AT 0800 WILL PUT THEM BACK ON IN THE EVENING. EXTREMITIES ELEVATED WHEN RESTING. 1V LASIX ADMINISTERED ORDERED. ALL OTHER VITALS REMAIN STABLE. PT UP WITH 1 PERSON MIN ASSIST, CAN BE IMPULSIVE AT TIMES. Q1H VISUAL CHECKS. CALL LIGHT WITHIN REACH. FALL PRECAUTIONS IN PLACE
[2018-07-13 19:50] VITALS: BP 130/67
--- NOTE | 2018-07-14 00:37 | NUR ---
PT ALERT AND ORIENTED X 4. UP TO BSC WITH MINIMAL ASSIST X 1. VERY SOB WITH EXERTION. 02 ON AT 2L PER NC CONT. LUNGS COARSE WITH WHEEZES. RAC SL INTACT AND PATENT. PT VOIDING ADEQUATE AMTS PER BSC. PT DENIES PAIN OR DISCOMFORT. BED ALARM ON FOR SAFETY. PT APPEARS TO BE SLEEPING ON HOURLY ROUNDS.
[2018-07-14 08:30] VITALS: BP 153/71
--- NOTE | 2018-07-14 17:53 | NUR ---
PT ALERT AND ORIENTED TIMES FOUR. VSS, 98%2L. C/O SOB ON EXCERTION. PT DENIES PAIN. PT WORKED WELL WITH PT/OT TODAY. PT TOLERATES MEDS AND MEALS. PT PROGRESSING TOWRADS POC GOALS.
[2018-07-14 20:30] VITALS: BP 146/74
--- NOTE | 2018-07-15 03:03 | NUR ---
assumed care at approx 1900 evening 07/14. pt sitting up in recliner at change of shift. 02 at 2l per n/c. pt up to bathroom to void in toilet and somewhat shortness of breath when up. pt took hs meds with water tolerating well. pt appears to be sleeping soundly with hourly rounding checks. bed alarm on and call light in reach. will continue to monitor.
[2018-07-15 08:00] VITALS: BP 147/69
--- NOTE | 2018-07-15 09:31 | NUR ---
ASSUMED CARE AT 0700. PATENT IS ALERT AND ORIENTED X4. PATIENT URBINA'S. BOOTH USHER ARE EQUAL. LUNGS ARE CLEAR AND DEMINISHED WITH AN OCCASIONAL WHEEZE. PATIENT CONTINUES ON RESPIRATORY TX. ABD IS SOFT WITH BSX4. UP TO THE BATHROOM TO VOID ALICIA COLORED URINE. UP IN THE CHAIR FOR MEALS. 02 AT 2L PER N/C. 02 SAT 99% ON 2L PER N/C. FALL AND SAFETY PROTOCOLS IN PLACE. DENIES ANY PAIN . CONTINUES TO PROGESS SLOWLY TOWARDS D/C GOALS. IV IN HER RIGHT UPPER ARM. IV SITE WITHOUT REDNESS OR SWELLING. PATIENT IS UP WITH WALKER AND GAIT BELT TO AMBULATE. WILL CONTINUE TO MONITER
[2018-07-15 19:41] VITALS: BP 158/79
--- NOTE | 2018-07-16 03:57 | NUR ---
REINFORCING NEED FOR HER TO CALL US FOR STANDBY ASSIST TO TOILET. PATIENT HAS STEADY GAIT AND USES OXYGEN TUBING EXTENSION IN ORDER TO FACILITATE TRIPS TO TOILET FOR SIGNIFICANT VOIDS. RAC SALINE LOCK PATENT FOR SOLUMEDROL Q 6 HOURS. EXPRESSES SURPRISE AT ALL THE PILLS SHE IS TAKING AT THIS POINT AND IS PLANNING TO REVIEW HER REGIMEN WITH DR BROOKS AT THEIR NEXT MEETING.
[2018-07-16 07:30] VITALS: BP 135/92
--- NOTE | 2018-07-16 11:25 | NUR ---
ASSUMED CARES AT 0700. PT AWAKE, ALERT AND ORIENTED *4. DENIES PAIN. LUNG SOUNDS CLEAR/DIMINISHED, ON 2L OXYGEN WITH O2 SATS > 95%. SOB NOTED WITH EXERSION, IMPROVEMENT NOTED PT IS ABLE TO WALK LONGER DISTANCES WITHOUT SOA AND IS USING THE TOILET VS THE COMMODE AT BEDSIDE. CONTINUES TO HAVE 2-3+ PITTING EDEMA IN HER BLE AND 1+ PITTING IN HER ABDOUL UPPER EXTREMITIES. LIZZIE HOSE IN PLACE AND EXTREMITIES ELEVATED. ATE 70% OF HER BREAKFAST. HAD HER MEAL IN THE DINING ROOM AND INTERACTED WITH OTHER PTS. Q1H VISUAL CHECKS. CALL LIGHT WITHIN REACH. FALL PRECAUTIONS IN PLACE.
--- NOTE | 2018-07-16 23:12 | NUR ---
PT ASSESSMENT COMPLETED AND VSS. MEDS GIVEN ORDERED AND WELL TOLERATED. FALL PRECAUTIONS IN PLACE. PT WANTS TO GO HOME SOON POSSIBLE. SHE WANTS TO SWITCH FROM IV SOLU MEDROL TO PO MEDS SO THAT SHE CAN GET HOME FASTER. UP TO THE BATHROOM WITH ASST/GAIT/WALKER. SLEEPING WELL. WILL CONTINUE TO MONITOR FREQUENTLY.
[2018-07-17 05:22] VITALS: BP 165/69
[2018-07-17 07:30] VITALS: BP 148/72
--- NOTE | 2018-07-17 12:15 | NUR ---
ASSUMED CARES AT 0700. PT AWAKE, ALERT AND ORIENTED *4. DENIES PAIN. LS WHEEZY AND DIMINISHED IN THE BASES, ON 1L O2 WITH SATS >95%, SOB WITH EXERSION. BS ACTIVE *4, ABDOMEN SOFT AND ROUND, *1 UNFORMED BM THIS AM. FREQUENT URINATION. CONTINUES TO HAVE 2+ PITTING EDEMA IN BLE, DECREASED EDEMA IN UPPER EXTREMITIES. UP WITH 1 PERSON SBA, GAITBELT AND O2. NEEDS HELP WITH THE O2 TANK/ CORD. Q1H VISUAL CHECKS. CALL LIGHT WITHIN REACH. FALL PRECAUTIONS IN PLACE
[2018-07-17 19:00] VITALS: BP 151/65
[2018-07-17 20:30] VITALS: BP 161/67
--- NOTE | 2018-07-18 00:35 | NUR ---
assumed care at approx 1900 evening /. pt sitting out at dining table at change of shift finishing up with supper. pt alert and oriented x4, pleasant and cooperative. 02 at 0.5l with resp tx as ordered. pt states she feels she is getting stronger and denies significant shortness of breath when up. pt given hs meds with water and pt appears to be sleeping soundly with hourly rounding checks. pt up to bathroom to void with standby assist. bed alarm on and call light in reach. will continue to monitor.
[2018-07-18 08:00] VITALS: BP 161/79
[2018-07-18 10:11] LABS: CALCIUM 8.8 mg/dL (8.5-10.1); CREATININE 1.6 mg/dL (0.6-1.0)
[2018-07-18 10:18] LABS: POTASSIUM 2.4 mmol/L (3.5-5.1)
--- NOTE | 2018-07-18 14:21 | NUR ---
LAB CALLED FOR CRITICAL K 2.4, CALLED AND NOTIFIED DR. BROOKS. OBTAINED ORDER FOR IV KCL X2, SUPPLEMENT POTASSIUM 20MEG 3X TODAY AND RECHECK CMP TOMORROW. ALSO NOTIFIED DOCTOR ABOUT TAPER PREDNISON BEFORE DISCHARGE. B/P HAS BEEN HIGH, OBTAINED ORDER TO INCREASE METOPROL TO 25MG TODAY AND OTHER ORDERS SEE [employer]. ASSUMED CARES AT 0700. REPORTS SLEPT WELL AT NIGHT. ALERT AND ORIENTED X4. DENIES PAIN. LS WHEEZY AND DIMINISHED IN THE BASES, ON 1L O2 WITH SATS >95%, SOB WITH EXERSION. CONTINUE TO BE ON ABT FOR URI. HAD 2X LOOSE STOOL TODAY. BS ACTIVE *4, ABDOMEN SOFT AND ROUND, FREQUENT URINATION ON LASIX IV CONTINUES TO HAVE 2+ PITTING EDEMA IN BLE, LIZZIE HOSE ON, ENCOURAGED TO ELEVATE BLE UP. DECREASED EDEMA IN UPPER EXTREMITIES. UP WITH 1 PERSON SBA, GAITBELT AND O2. NEEDS HELP WITH THE O2 TANK/ CORD. OFFERED SUPPORTIVE CARE. ENCOURAGED PT TO VOICE HER NEEDS. PT C/O ANXIETY. HR ELEVATED. PRN XANAX GIVEN. PT'S GOALS ARE TO CONTINUE TO WORK WELL WITH STAFF SO SHE CAN GO HOME ON TUESDAY. PT EXPRESSED HER GRATITUDE TOWARD THE CARE SHE HAS BEEN RECEIVED. SHE IS EXCITED TO GO HOME ON TUESDAY. Q1H VISUAL CHECKS. CALL LIGHT WITHIN REACH. FALL PRECAUTIONS IN PLACE
[2018-07-18 20:11] VITALS: BP 157/90
[2018-07-18 21:30] VITALS: BP 142/80
--- NOTE | 2018-07-19 01:29 | NUR ---
PT ASSESSMENT COMPLETED AND VSS. MEDS GIVEN ORDERED AND WELL TOLERATED. FALL PRECAUTIONS IN PLACE. PT A LITTLE SOA THIS EVENING AFTER AMBULATING TO THE BATHROOM. SAT WAS 96%. PULSE REGULAR. VSS. RECOVERED AFTER REST. ANXIOUS. HS ANXIETY MEDICATION HELPED CALM PT. LUNGS DIMINISHED WITHOUT WHEEZE/CRACKLES. PT STATES THAT SHE FEELS BETTER. SLEEPING WELL. WILL CONTINUE TO MONITOR FREQUENTLY.
[2018-07-19 05:28] LABS: ALBUMIN 2.6 g/dL (3.4-5.0); CREATININE 1.6 mg/dL (0.6-1.0); POTASSIUM 3.2 mmol/L (3.5-5.1); TOTAL BILIRUBIN 0.2 mg/dL (<0.1-1.0); TOTAL PROTEIN 5.4 g/dL (6.4-8.2)
[2018-07-19 08:18] VITALS: BP 175/102
--- NOTE | 2018-07-19 10:42 | NUR ---
Late entry from yesterday 07/18/18: Expert Medical Writer visited with the pt at bedside after team conference. Pt updated on plan of care and dc planning recommendations. Dc date set for Tuesday07/21/18 to home with HH RN,PT,OT and ST. No driving unless cleared by her pcp. Pt continues to need O2. Pt receptive to home o2 referral at dc and notes that she had it in 2014 but only needed it a few months. She denies agency preference for HH and O2 setup. She reports her friend/dpoa Sumi is keeping her dog for a while. Sumi will take her home and dc and help with errands, appointments and laundry. She lives close to the pt and is available as needed. Expert Medical Writer updated Sumi per the pt request. All parties anticipating dc Tuesday with HH. Referral called to [facility] and they can accept. Awaiting O2 sats at rest and with activity to confirm O2 needs at dc. Pt being weaned off iv lasix and steriods. No other dme indicated beyond the O2. Pt is walking with sba 70 feet and sba for transfers due to le swelling. She is indep with ue dressing and adl's. Will follow to finalize HH orders at dc.
[2018-07-19 10:49] VITALS: BP 175/102
--- NOTE | 2018-07-19 13:54 | NUR ---
FAXED REFERRAL TO [facility] FOR HOME O2 LEFT MSG WITH SUSIE FROM [facility] THAT SCRIPT AND EXERCISE O2 SAT RESULTS WILL BE FAXED TOMORROW 07/20. DCP TO FOLLOW.
--- NOTE | 2018-07-19 16:03 | NUR ---
ASSUMED CARE AT APPROX 0715. PATIENT ALERT. ORIENTED TO PERSON. FORGETFUL, CALLS OUT INSTEAD OF USING CALL LIGHT. CUES FOR SAFETY. PARTICIPATED IN THERAPY. VSS. PLAN IS TO DC TUESDAY. DR. BROOKS NOTIFIED. IV MEDS CHANGED TO PO. FALL PRECAUTIONS IN PLACE. WILL CONTINUE TO MONITOR.
[2018-07-19 20:28] VITALS: BP 138/67
--- NOTE | 2018-07-20 03:03 | NUR ---
UP TO BSC WITH SBA, STEADY GAIT. XANAX PER REQUEST AT 0100 BECAUSE SHE HAS NOT SLEPT YET, RESTING WELL NOW. PLANS TO GO HOME TUESDAY. NOT REQUESTING BREATHING TREATMENT OVERNIGHT
[2018-07-20 08:49] VITALS: BP 133/66
--- NOTE | 2018-07-20 11:09 | PLAN ---
[facility] [place] [address] REHAB UNIT PLAN OF CARE Name: KATIE DUCKWORTH Room #: 513-P ADM IN M.R.#: [id number] Admission: 07/11/18 ������������������ Attend Phys: Michael Orellana MD Discharge: ������������������ Date of : 51 Report #: [id number] THIS REPORT FOR: //name// CC: Michael Carey DATE OF SERVICE: 07/12/2018 PROGRESS NOTE AND OVERALL PLAN OF CARE SUBJECTIVE: The patient was seen earlier. She was given some IV Lasix by the hospitalist with her lower extremity edema and was noted to have a large urine output after IV Lasix. Nursing has been continuing to monitor I's and O's overnight and she has been sleeping. She is working in therapies to improve her strength and endurance. She has been at a min assist level for basic transfers and standby short distances with the front wheeled walker. She at this point is transferring to the bedside commode with assist of one utilizing a gait belt. ASSESSMENT: 1. Pulmonary rehabilitation. 2. Acute on chronic hypoxemic hypercapnic respiratory failure. 3. Chronic obstructive pulmonary disease with exacerbation. 4. Metabolic acidosis. 5. Renal insufficiency, which improved. 6. Anemia, status post recent transfusion. 7. Pyloric ulcer. 8. Protein calorie malnutrition. PLAN: The overall plan of care is as noted: 1. Estimated length of stay is probably at least 7-10 days, pending progress. 2. Medical prognosis is reasonably good. 3. Anticipated interventions includes the interdisciplinary acute inpatient rehabilitation program. 4. Anticipated functional outcomes would be for the patient to become modified independent at least at the walker level, so that she can return back to the home setting. 5. Discharge disposition would be back to the home setting where she lives in a house alone. She does have a friend who is a lady friend that lives right around the corner. 6. Expected therapy by discipline includes PT and OT 1-1/2 hours per day each five days a week throughout the duration of the acute inpatient rehabilitation stay. The hospitalist service is to continue following regarding medical issues. Note that her sodium is now up to 146. She was given IV Lasix. We will ask Nephrology to resume seeing the patient while the patient is on rehabilitation. [place] [id number] REHAB UNIT PLAN OF CARE Name: KATIE DUCKWORTH [facility] ..#: [id number] Admission: 07/11/18 ������������������ Attend Phys: Michael Orellana MD Discharge: ������������������ Date of : 51 Report #: [id number] They were following her for over on acute. I have also ordered for rechecking labs tomorrow a.m. The patient has been concerned regarding her extremity edema. ��������������������������������������������� <ELECTRONICALLY SIGNED> ���������������������������������������� By: Michael Orellana MD ��������������������������������������������� 07/20/18 1109 0753 0838 Michael Orellana MD /TRAN
--- NOTE | 2018-07-20 11:09 | H ---
[facility] [place] [address] HISTORY AND PHYSICAL Name: KATIE DUCKWORTH Room #: 513-P ADM IN M.R.#: [id number] Admission: 07/11/18 ������������������ Attend Phys: Michael Orellana MD Discharge: ������������������ Date of : 53 Report #: [id number] THIS REPORT FOR: //name// CC: Michael Carey DATE OF SERVICE: 07/11/2018 HISTORY OF PRESENT ILLNESS: The patient is a 62-year-old white female originally admitted to [facility] on 07/02/2018 with shortness of breath, had a prepyloric ulcer, was admitted on 06/30/2017 and discharged on 07/01/2017. She unfortunately was readmitted on 07/02/2017 with respiratory distress, COPD, increased shortness of breath. She was diagnosed with acute respiratory failure with COPD exacerbation and had 2 recent transfusions for severe anemia, was diagnosed with a pyloric ulcer and also noted to have renal insufficiency. She was followed closely at [facility] by Pulmonary Medicine as well as being seen by Nephrology. She had a decline in her overall functional abilities and has been admitted now for acute in-hospital inpatient rehabilitation. 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 ALLERGIES: Include TAPE. MEDICATIONS: Please see the full medication listing. This includes vitamins, herbals, and supplements per report. HABITS: Former smoker, quit greater than a year ago. No history of alcohol abuse. SOCIAL HISTORY: Lives in a house alone, did not utilize gait aids. There are 2 steps in. She has significant arthritis, but was functional in the community without gait aids and was not on oxygen. She does have a friend that is a lady friend that lives right around the corner. REVIEW OF SYSTEMS: No current complaints of chest pain. She continues to have shortness of breath with limited activities and has some wheezing. No abdominal discomfort. No bowel or bladder changes. She is hard of hearing. She does have a history of multiple joint arthritis with multiple joint surgeries as noted above. Denies any focal extremity pain complaints other than her normal arthritic pain. PHYSICAL EXAMINATION: GENERAL: A 62-year-old small statured, white female in no obvious distress. VITAL SIGNS: Last recorded temperature 97.9, pulse 109, respirations 24, blood [facility] [address] [place] [address] HISTORY AND PHYSICAL Name: KATIE DUCKWORTH Room #: 513-P [facility] IN M.R.#: [id number] Admission: 07/11/18 ������������������ Attend Phys: Michael Orellana MD Discharge: ������������������ Date of : 53 Report #: [id number] pressure 152/78. She is alert, pleasant. HEENT: Appeared to be benign. She is on nasal prong O2, 1-1/2 liters. She definitely has a wheeze. Follows commands without difficulty, quite hard of hearing. CHEST: Decreased diffuse breath sounds. CARDIOVASCULAR: Sounded regular rate and rhythm. ABDOMEN: Bowel sounds positive, nontender. GENITOURINARY AND RECTAL: Deferred. EXTREMITIES: She has decreased end range of both upper extremities with chronic arthritic changes. Surgical scars over both wrists with the wrist plates that are noted with definite decreased range of motion. She has decreased fine finger dexterity. Chronic rheumatoid arthritic changes of the upper extremities. Strength is probably a grade 4- to 3+/5. Tone is intact. Lower extremities: She does have 1+ pitting edema pretibial. No focal calf swelling, functional range of motion with strength grade 3+ to 4-/5. DTRs are trace. She is able to get up with transfers, min assist. Gait 20 feet x 2 standby assistance front-wheeled walker. ASSESSMENT: A 62-year-old white female following problem list: 1. Pulmonary rehabilitation. 2. Acute on chronic hypoxemic hypercapnic respiratory failure. 3. Chronic obstructive pulmonary disease with exacerbation. 4. Metabolic acidosis. 5. Renal insufficiency, which has improved. 6. Anemia, status post recent transfusion. 7. Pyloric ulcer. 8. Protein calorie malnutrition. PLAN: The patient is admitted for acute in-hospital inpatient rehabilitation. From a postadmission physician evaluation perspective, there are no relevant changes since the preadmission screening. Please see the above review of prior and current medical and functional conditions and comorbidities. Please see the patient's previous and current functional status. As far as risk of complications, the patient has multiple medical comorbidities as noted above. Initial plan of care involves the interdisciplinary acute inpatient rehabilitation program with the goal of maximizing the patient's functional independence, so that she can hopefully return back to her prior living situation. Prognosis is reasonably good with estimated length of stay probably 10 days depending upon her progress. She may only need 7 days. Potential barriers would include her above noted comorbidities and decreased functional status. The patient meets diagnostic criteria for an acute in-hospital inpatient rehabilitation stay. She meets the medical necessity criteria and we will have the field sales consultant physicians continue to follow will include Internal Medicine as well as Pulmonary Medicine. Nephrology may need to see again depending upon [address] [address] HISTORY AND PHYSICAL Name: KATIE DUCKWORTH Room #: 513-P ADM IN M.R.#: [id number] Admission: 07/11/18 ������������������ Attend Phys: Michael Orellana MD Discharge: ������������������ Date of : 53 Report #: [id number] how she does with her renal insufficiency. Her creatinine has been improving. The patient does have the tolerance for therapies and has appropriate discharge goals back to the home setting. ��������������������������������������������� <ELECTRONICALLY SIGNED> ���������������������������������������� By: Michael Orellana MD ��������������������������������������������� 07/20/18 1109 1640 1732 Michael Orellana MD /[facility]
--- NOTE | 2018-07-20 11:20 | NUR ---
ASSUMED CARE AT APPROX 0715. PATIENT A/O X3-4. FORGETFUL. DENIES PAIN. NEEDS CUES FOR SAFETY. VSS. UP X1 GB, SUPERVISION FOR SAFETY WITH O2 TUBING. PATIENT PARTICIPATING IN THERPAY. SATS MAINTAINED ON 1-2 L OXYGEN PER NC. AM MEDS ADMINISTERED. SPOKE TO PROVIDER ABOUT PATIENT'S REQUEST FOR ALPRAZOLAM SCRIPT AT DC. SCRIPT FOR HOME O2 RECEIVED, ON CHART. PATIENT VISIBLE FROM NURSES STATION. ROUNDED ON HOURLY. FALL PRECAUTIONS IN PLACE. WILL CONTINUE TO MONITOR.
--- NOTE | 2018-07-20 12:47 | NUR ---
cm spoke with bedside nurse, pt is needing order for stat, rest, and exercise o2 check to see if qualify for home oxygen. pt still requiring o2 with activity. [facility] here and script provided and will send over results from o2 stat test. will cont following as needed for dc needs. pt jayden for dc 07/14/18 with [facility] (nursing, pt, ot, and st).
--- NOTE | 2018-07-20 15:46 | NUR ---
DISCHARGE PLANNING: [employer] OBTAINED APPROVAL FROM KATIE TO CALL HER FRIEND, HONORIO REGARDING DC PLAN AND SAFETY CONCERNS. CALL WAS PLACED TO HONORIO. WE DISCUSSED DISCHARGE CONCERNS THAT WERE VOICED BY THERAPIES, INCLUDING THE PT'S STATEMENT THAT SHE PLANNED TO DRIVE WHEN SHE GOT HOME, THE FACT THAT SHE WAS GOING HOME ON O2, AND HER IMPULSIVITY AND ALTERED JUDGEMENT THAT WAS NOTED BY BOTH [employer] AND OT TODAY. PER HONORIO, PT HAS CLOSE NEIGHBORS WHO WILL CHECK ON HER FREQUENTLY THROUGHOUT THE DAY, AND HONORIO STATED THAT FOR THE FIRST FEW DAYS, "THEY WOULD FIGURE SOMETHING OUT" TO ENSURE THAT SHE HAD SOMEONE WITH HER ALL THE TIME UNTIL THEY DETERMINED THAT SHE WAS GETTING AROUND SAFELY IN THE HOME AND OK TO LEAVE ALONE FOR INTERVALS. HONORIO STATED THAT "IT'S GOOD THAT SHE IS GOING HOME ON A TUESDAY, SO WE CAN BE THERE FOR HER OVER THE WEEKEND." HONORIO ALSO NOTED THAT PT'S CAR TAGS HAVE BEEN REMOVED, AND THAT SHE CANNOT DRIVE WITHOUT THEM. HONORIO STATED THAT SHE AND PT'S OTHER FRIENDS WILL DRIVE HER TO APPOINTMENTS AND DO HER SHOPPING, ETC. THESE THINGS WILL BE VERBALIZED TO THE TEAM
[2018-07-20 18:09] LABS: CALCIUM 8.9 mg/dL (8.5-10.1); CREATININE 1.4 mg/dL (0.6-1.0); MAGNESIUM 1.4 mg/dL (1.8-2.4)
[2018-07-20] MEDS ORDERED: LOPRESSOR25 PO (18:59)
[2018-07-20] MEDS ORDERED: CARDIZEM CD120 MG PO (19:00)
[2018-07-20] MEDS ORDERED: VOLTAREN GEL 1100 G1 TOP (19:00)
[2018-07-20] MEDS ORDERED: ALPRAZOLAM 0.50.5 M1 PO (19:01)
[2018-07-20] MEDS ORDERED: K-DUR 20 MEQ T20 MEQ PO (19:02)
[2018-07-20] MEDS ORDERED: LASIX 40 MG TAB40 M1 PO (19:02)
[2018-07-20] MEDS ORDERED: CALTRATE-600 W1 EACH PO (19:03)
[2018-07-20 19:10] VITALS: BP 169/70
--- NOTE | 2018-07-21 03:06 | NUR ---
Assumed care of pt at 1915. Pt alert and oriented x4. Ambulates to bathroom with supervision, gait steady. O2 on at 2 liters by nasal cannulae. Denies shortness of air, pain, or nausea. Lab results called to Dr Carey, order for Mag Oxide received. Anticipating discharge home later today. Has appeared to be sleeping when checked on hourly rounds. Bed alarm on.
[2018-07-21 04:57] LABS: CALCIUM 8.5 mg/dL (8.5-10.1); CREATININE 1.3 mg/dL (0.6-1.0); POTASSIUM 3.1 mmol/L (3.5-5.1)
[2018-07-21 07:30] VITALS: BP 160/80
[2018-07-21 09:49] VITALS: BP 175/102
--- NOTE | 2018-07-21 09:52 | NUR ---
PT. [facility] SPOKE WITH SAMEER IN ADM. SHE RECEIVED DC ORDERS/SUMMARY AND WILL NOTIFY PT. TIME OF VISITS.
--- NOTE | 2018-07-21 11:45 | NUR ---
portable o2 tank from [facility] in at pt bedside. concentrator will be delivered to pt home. pt stated " this has been good. never been to therapy before but i would recommend this to anyone. thank you all"/memo. education on not driving until cleared by kenisha alvarado [facility]. will cont following as needed for dc needs. [facility].
--- NOTE | 2018-07-21 12:35 | NUR ---
ASSUMED CARE OF PT AT 0715. PT IS A&OX4. IS ON UP WITH SBA & GB. DENIES PAIN. IS STABLE. IS ON 1-2L OF O2/NC. HAS SOA WITH EXERTION. FALL PRECAUTIONS & HOURLY ROUNDING MAINTAINED. LABS & VITALS REVIEWED. PT SCHEDULED TO DC HOME TODAY AFTER 5PM. OXYGEN TANK IN ROOM. PT STATED, "MY FRIEND IS COMING TO TAKE ME HOME & I WILL BE STAYING A COUPLE OF DAYS WITH HER". PT IS CURRENTLY IN DINING ROOM EATING LUNCH. WILL CONTINUE TO MONITOR.
[2018-07-21 15:36] VITALS: BP 175/102
--- NOTE | 2018-07-21 16:17 | NUR ---
THIS NURSE DISCUSSED DISCHARGE ORDERS WITH PT. SCRIPTS WERE GIVEN. PT HAS SOME ANXIETY ABOUT DISCHARGING. PT HAS PORTABLE O2 IN THE ROOM TO TAKE HOME FROM [facility]. PT IS STABLE. IS AWIATING RIDE. WILL CONTINUE TO MONITOR.
[2018-07-22] MEDS ORDERED: MAG-OXIDE400 MG PO (16:15)
== END 2018-07-21 17:53 | disposition home health service (06) | DRG 189 ==
LOC: ENTRNSPT 07-21 17:41
PROVIDERS: Family Medicine; Nurse Practitioner Family; ADMIT Physical Medicine & Rehabilitation
DX: J96.21 Acute and chronic respiratory failure with hypoxia (principal); K25.4 Chronic or unspecified gastric ulcer with hemorrhage; J44.1 Chronic obstructive pulmonary disease with (acute) exacerbation; E87.2 Acidosis; E46 Unspecified protein-calorie malnutrition; E87.0 Hyperosmolality and hypernatremia; N17.9 Acute kidney failure, unspecified; J90 Pleural effusion, not elsewhere classified; J96.22 Acute and chronic respiratory failure with hypercapnia; D64.9 Anemia, unspecified; K25.9 Gastric ulcer, unspecified as acute or chronic, without hemorrhage or perforation; M06.9 Rheumatoid arthritis, unspecified; I10 Essential (primary) hypertension; F32.9 Major depressive disorder, single episode, unspecified; F41.9 Anxiety disorder, unspecified; G31.84 Mild cognitive impairment of uncertain or unknown etiology; R53.81 Other malaise; Z60.2 Problems related to living alone; T38.0X5A Adverse effect of glucocorticoids and synthetic analogues, initial encounter; D72.829 Elevated white blood cell count, unspecified; R00.0 Tachycardia, unspecified; E87.6 Hypokalemia; E83.42 Hypomagnesemia; Z68.24 Body mass index [BMI] 24.0-24.9, adult; Z91.048 Other nonmedicinal substance allergy status; Z87.891 Personal history of nicotine dependence; Y92.89 Other specified places as the place of occurrence of the external cause
CPT/HCPCS: 10112

== ENCOUNTER 2018-07-22 13:10 | Emergency (ER) | payer OTHER ==
[~2018-07-22] VITALS: Ht 147.3 cm; Wt 55.8 kg
[~2018-07-22 13:10] MED LIST changes: +ALPRAZOLAM 0.50.5 M1 PO; +CARDIZEM CD120 MG PO; +K-DUR 20 MEQ T20 MEQ PO; +LASIX 40 MG TAB40 M1 PO; +LOPRESSOR25 PO; +VOLTAREN GEL 1100 G1 TOP
[2018-07-22 14:13] LABS: HEMOGLOBIN 9.5 gm/dL (12.0-15.0); MCHC 31.8 g/dL (28.0-37.0); PLATELET COUNT 229 thou/uL (150-400); RBC 3.29 mil/uL (4.20-5.00); RDW 20.9 % (10.5-14.5); WBC 10.7 thou/uL (4.0-11.0)
[2018-07-22 14:17] LABS: ANION GAP 6 mmol/L (7-16); BUN 31 mg/dL (7-18); CALCIUM 9.6 mg/dL (8.5-10.1); CHLORIDE 99 mmol/L (98-107); CO2 42 mmol/L (21-32); CREATININE 1.3 mg/dL (0.6-1.0); GLUCOSE 151 mg/dL (74-106); POTASSIUM 3.5 mmol/L (3.5-5.1); SODIUM 147 mmol/L (136-145)
[2018-07-22 14:25] LABS: TROPONIN-I <0.06 ng/mL (<0.06)
[2018-07-22 14:29] LABS: ABSOLUTE NEUTROPHILS 9.5 thou/uL (1.4-8.2); ANISOCYTOSIS 1+
[2018-07-22] MEDS ORDERED: MAG-OXIDE400 MG PO (16:15)
[2018-07-22 16:16] VITALS: BP 154/82
--- NOTE | 2018-07-24 08:09 | EKG ---
[address] [address] ELECTROCARDIOGRAM REPORT Name: KATIE DUCKWORTH [facility] [id number] ������������������ Admission: 07/22/18 ������������������ Attend Phys: Discharge: 07/22/18 ������������������ Date of : 51 Report #: [id number] ����������������������������������������������������������������� [id number] THIS REPORT FOR: //name// [facility] ED Test Date: 2018-07-22 Test Time: 14:23:20 Pat Name: KATIE DUCKWORTH Department: Room: Gender: F [place] Guide: ATTILA : 1955 Requested By: Randolph New Order Number: [id number] MD: Dino Qiu Measurements Intervals Tillman Rate: 107 P: 76 CT: 144 QRS: 159 QRSD: 109 T: 57 QT: 320 QTc: 427 Interpretive Statements Sinus tachycardia Rightward axis Consider RVH Compared to ECG 07/02/2018 11:37:42 No significant change was found Electronically Signed On 07-24-2018 8:09:37 CDT by Dino Qiu [email or web address] ��������������������������������������������� <ELECTRONICALLY SIGNED> ���������������������������������������� By: Dino Qiu MD, [facility] ��������������������������������������������� 07/24/18 0809 D: [id number] Dino Qiu MD, FAC /EPI
== END 2018-07-22 16:43 | disposition home or self-care (01) ==
LOC: ER 13:10
PROVIDERS: Emergency Medicine
DX: R09.02 Hypoxemia (principal); Z99.81 Dependence on supplemental oxygen; M06.9 Rheumatoid arthritis, unspecified; J44.9 Chronic obstructive pulmonary disease, unspecified

== ENCOUNTER 2018-08-04 08:45 | Emergency (ER) | payer OTHER ==
[~2018-08-04] VITALS: Ht 160 cm; Wt 57.1 kg
[~2018-08-04 08:45] MED LIST changes: +MAG-OXIDE400 MG PO
[2018-08-04 08:46] VITALS: BP 135/70
== END 2018-08-04 10:08 | disposition home or self-care (01) ==
LOC: ER 08:45
DX: T42.4X1A Poisoning by benzodiazepines, accidental (unintentional), initial encounter (principal); F41.9 Anxiety disorder, unspecified; J44.9 Chronic obstructive pulmonary disease, unspecified; Z99.81 Dependence on supplemental oxygen; M06.9 Rheumatoid arthritis, unspecified; Z87.891 Personal history of nicotine dependence; Z91.048 Other nonmedicinal substance allergy status; Y92.89 Other specified places as the place of occurrence of the external cause

== ENCOUNTER → 2018-11-21 | Outpatient (CLI) | payer OTHER, MEDICARE | LOC: RAD 08:47 | DX: M19.011 Primary osteoarthritis, right shoulder (principal); M06.9 Rheumatoid arthritis, unspecified ==

== ENCOUNTER → 2019-02-22 | Outpatient (CLI) | payer OTHER, MEDICARE | LOC: RAD 01:33 | DX: Z12.31 Encounter for screening mammogram for malignant neoplasm of breast (principal) ==

== ENCOUNTER → 2019-04-27 | Outpatient (CLI) | payer OTHER, MEDICARE ==
[~2019-04-27] VITALS: Ht 147.3 cm; Wt 39.9 kg
[~2019-04-27] MED LIST changes: +ALPRAZOLAM 0.50.5 MG PO; +AMITRIPTYLINE H50 M2 PO; -BRIMONIDINE 0.110 ML; +BRIMONIDINE 0.110 ML OPHTHALMIC; +CARAFATE1 GM PO; +DILTIAZEM ER120 MG PO; +DUOFER 28 MG TA28 MG PO; +FUROSEMIDE 40 M40 MG PO; +LEVO-T50 MCG PO; +POTASSIUM20 PO; +TOPROL XL25 MG PO
--- NOTE | 2019-04-30 16:06 | PATH ---
[facility] [address] [address] PATHOLOGY RPT PROCEDURE Name: YULIA YIN Room #: REG Julien MLeilaR.#: [id number] Admission: 04/27/19 Date of : 51 Discharge: Report #: [id number] Path Case #: [id number] [facility] Accession Number: [id number] . 01 Material submitted: . colon - RANDOM BIOPSIES TO R/O MICROSCOPIC COLITIS . 01 Clinical history: . Change in bowel habits, normal colonoscopy. . 02 Diagnosis: Large intestinal mucosa, random to rule out microscopic colitis, endoscopic biopsy: - Scattered rare focus of acute cryptitis along with increased apoptosis as well as some marked thickening of the subepithelial collagen, (see comment). - Negative for dysplasia or malignancy. . (IUV:mml; 04/30/2019) [facility] 04/30/2019 1406 Local . 02 Comment: Examination shows a scattered rare focus of acute cryptitis, associated single cell apoptosis within numerous crypts. The lamina propria cellularity is markedly increased by numerous lymphocytes, eosinophils as well as plasma cells. The subepithelial collagen layer is markedly thickened associated with sloughed surface epithelium. 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 A significant increase in intraepithelial lymphocytes is not identified. Please correlate clinically. . (IUV:mml; 04/30/2019) . 02 Electronically signed: . Gerda Corbin MD, Pathologist NPI- [id number] . 01 Gross description: . Received in formalin labeled "Yulia Yin, random BXs to rule out microscopic colitis" is a 1.0 x 0.8 x 0.1 cm aggregate of mar-brown mucosa fragments. The specimen is submitted in A1. ([facility]; 04/28/2019) [facility] 04/28/2019 0925 Local . 02 Pathologist provided ICD-10: K62.89 . 02 [place] [address] PATHOLOGY RPT PROCEDURE Name: YULIA YIN [facility] [id number] Admission: 04/27/19 Date of : 51 Discharge: Report #: [id number] Path Case #: [id number] Specimen Comment: A courtesy copy of this report has been sent to [phone], [phone]- Specimen Comment: [phone] Specimen Comment: Report sent to and Performed at: [address], [place], [place] [id number] MD Xavier Vaca MD Phone: [phone] Performed at: [address] [id number] MD Gerda Corbin MD Phone: [phone]
--- NOTE | 2019-05-02 08:11 | P ---
[facility] [place] [address] PROCEDURE REPORT Name: KATIE DUCKWORTH [facility] [id number] Admission: 04/27/19 Attend Phys: Dae Daniel Discharge: Date of : 53 Report #: [id number] THIS REPORT FOR: //name// CC: Dae Carey MD DATE OF SERVICE: 04/27/2019 PROCEDURE PERFORMED: Colonoscopy with biopsies. HISTORY OF PRESENT ILLNESS: The patient is a 63-year-old female who presents today for colonoscopy. She was seen in the office on 03/06/2019 for change in bowel habits, specifically chronic diarrhea. She has a previous history of peptic ulcer disease and upper GI bleed in June of this year. Since then, she has been on Protonix. She denies any further blood in her stools. No family history of colon cancer. Last colonoscopy was approximately 9 years ago. Stool for C. diff was negative in the past. She had a lab for endomysial antibody that was negative. Plan is for colonoscopy. DESCRIPTION OF PROCEDURE: The risks and benefits of the procedure were explained to the patient, those risks including but not limited to bleeding, perforation and the risk of sedation. She understood these risks and gave informed consent. Sedation was given using propofol per anesthesia. Next, a digital rectal exam was initially performed, which was normal. Next, using a standard Olympus colonoscope, the scope was placed in the patient's anus and advanced under direct vision to the cecum. The overall prep was excellent. The cecum and ileocecal valve were normal in appearance. Ascending, transverse, descending and sigmoid colon were normal. Random biopsies were obtained today to rule out microscopic colitis. The rectal mucosa was normal. On retroflexion, small nonbleeding internal hemorrhoids were noted. The scope was then withdrawn and the procedure terminated. The patient tolerated the procedure well. IMPRESSION: 1. Small internal hemorrhoids. 2. Otherwise, normal colonoscopy. RECOMMENDATIONS: 1. Await biopsy results. 2. We will discuss options including Imodium on a daily basis or possible Questran. 3. Repeat colonoscopy in [address] [address] PROCEDURE REPORT Name: DONITAKATIE SINGLETON Room #: REG TATO Miguelina#: [id number] Admission: 04/27/19 Attend Phys: Dae Daniel Discharge: Date of : 51 Report #: [id number] Thank you for allowing me to participate in her care. <ELECTRONICALLY SIGNED> By: Dae Tanner MD 05/02/19 0811 0850 0903 Dae Tanner MD /nt
== END | disposition home or self-care (01) ==
LOC: GI 04-04 14:41
DX: K62.89 Other specified diseases of anus and rectum (principal); K64.8 Other hemorrhoids; J43.9 Emphysema, unspecified; I10 Essential (primary) hypertension; M06.9 Rheumatoid arthritis, unspecified; H40.9 Unspecified glaucoma; E03.9 Hypothyroidism, unspecified; F32.9 Major depressive disorder, single episode, unspecified; F41.9 Anxiety disorder, unspecified; Z98.890 Other specified postprocedural states; Z79.899 Other long term (current) drug therapy; Z87.891 Personal history of nicotine dependence; Z88.8 Allergy status to other drugs, medicaments and biological substances
CPT/HCPCS: 62110; 62900

== ENCOUNTER → 2019-08-14 | Outpatient (CLI) | payer OTHER, MEDICARE | LOC: RAD 10:06 | DX: R92.2 Inconclusive mammogram (principal); R92.1 Mammographic calcification found on diagnostic imaging of breast ==

== ENCOUNTER 2019-12-14 15:59 | Inpatient (IN) | payer OTHER, MEDICARE ==
[~2019-12-14] VITALS: Ht 147.3 cm; Wt 42.2 kg
--- NOTE | ~2019-12-14 | EMS ---
[address] [address] EMS Patient Care Report Name: KATIE DUCKWORTH Room #: 203-P ADM IN M.R.#: [id number] Admission: 12/14/19 Attend Phys: Brendon Wilks MD Discharge: Date of : 51 Report #: [id number] THIS REPORT FOR: //name// Report Transmitted: 12/16/2019 20:49 EMS Care Summary [facility] Incident [phone] @ 12/14/2019 15:10 Incident Location [address] [place] [address] Patient KATIE DUCKWORTH Female, 64 Years 1955 Patient Address [address] [place] [address] Patient History Chronic Obstructive Pulmonary Disease (COPD),Arthritis, Patient Allergies Aspirin, Patient Medications Unknown, Chief Complaint DIFFICULTY BREATHING Disposition Transported No Lights/[place] Dispatch Reason Breathing Problem Transported To [facility] Narrative UPON OUR ARRIVAL THE PT WAS FOUND LAYING SUPINE IN HER BED, THE PT WAS ALERT AND ORIENTED TO OUR PRESENCE. THE PT STATED THAT SHE BEGAN TO HAVE DIFFICULTY BREATHING YESTERDAY AFTERNOON AND IT HAD SINCE GOTTNE WORSE. THE PT STATED THAT ANYTIME SHE MOVED OR TRIED TO WALK SHE BECAME SHORT OF BREATH. THE PT WAS [address] [address] EMS Patient Care Report Name: KATIE DUCKWORTH Room #: 203-P ADM IN M.R.#: [id number] Admission: 12/14/19 Attend Phys: Brendon Wilks MD Discharge: Date of : 51 Report #: [id number] CARRIED TO THE COT VIA A [place] AND WAS THEN PRORPERLY SECURED USING THE STRAPS ON THE COT PRIOR TO BEING MOVED TO THE AMBULANCE. ONCE ON THE AMBULANCE WE OBTAINED VITALS AND PLACEDN THE PT ON THE TEAMSITE DEVELOPER TO OBTAIN A 12-LEAD. THE 12-LEAD SHOWED SINUS TACHYCARDIA. A DETAILED PHYSICAL EXAM YIELDED NO SIGNIFICANT FINDINGS. THE PT STATED THAT SHE WOULD RATHER WAIT FOR THE HOSPITAL TO GET AN IV. WHILE THE PT WAS TALKING HER O2 BEGAN TO DESAT INTO THE 80'S. I INCREASED THE PT'S O2 TO 4 LPM AND HER O2 INCREASED TO 98%. THE PT WAS CONTINUOUSLY MONITORED DURING TRANSPORT AND I OBTAINED A SECOND SET OF VITALS PRIOR TO OUR ARRIVAL AT THE HOSPITAL. ONCE AT THE HOSPITAL THE PT WAS MOVED INDOORS VIA COT AND TRANSFERRED TO HER BED USING THE SHEETS ON THE COT. PT REPORT WAS GIVEN TO THE RN IN THE ROOM AND PT CARE WAS TRANSFERRED WITH NO SIGNIFICANT CHANGES IN THE PT'S STATUS OR CONDITION. Initial Vitals @15:29MI Suspected: false @15:24P: 119,R: 20,BP: 153/72,Pain: 0/10,GCS: 15,Glucose: 123,SpO2: 99,Revised Trauma: 12, @15:40P: 115,R: 20,BP: 128/88,Pain: 0/10,GCS: 15,Glucose: 132,SpO2: 99,Revised Trauma: 12, Assessments @15:18MENTAL:Person Oriented,Time Oriented,Event Oriented,Place Oriented,SKIN:HEENT:Eyes: Left Pupil: 4-mm,Eyes: Right Pupil: 4-mm,Neck/Airway: No Abnormalities,LUNG SOUNDS:General: No Abnormalities,ABDOMEN:General: No Abnormalities,PELVIS//GI:No Abnormalities,EXTREMITIES:Left Leg: Other,Left Arm: No Abnormalities,Right Arm: No Abnormalities,Right Leg: No Abnormalities,PULSE:Brachial: 2+ Normal,NEURO:No Abnormalities, Impression Acute Respiratory Distress (Dyspnea) Procedures @15:17Oxygen FlowRate: 2 Device: Nasal Cannula (NC) Response: ImprovedSucceed Timeline 15:08,Call Received 15:08,Psap Call 15:10,Dispatched 15:11,En Route 15:16,Initial Responder On Scene 15:16,On Scene 15:17,At Patient 15:17,Oxygen FlowRate: 2 Device: Nasal Cannula (NC) Response: [facility], [facility] [address] [place] [address] EMS Patient Care Report Name: KATIE DUCKWORTH Room #: 203-P [facility] IN .R.#: [id number] Admission: 12/14/19 Attend Phys: Brendon Wilks MD Discharge: Date of : 51 Report #: [id number] 15:24,BP: 153/72 M,PULSE: 119,RR: 20 R,SPO2: 99 Ox,ETCO2: ,B,PAIN: 0,GCS: 15, 15:29,BP: / M,PULSE: ,RR: R,SPO2: Ox,ETCO2: ,BG: ,PAIN: ,GCS: , 15:30,Depart Scene 15:40,BP: 128/88 M,PULSE: 115,RR: 20 R,SPO2: 99 Ox,ETCO2: ,B,PAIN: 0,GCS: 15, 15:45,At Destination 16:28,Call Closed Disclaimer v1.1 Copyright 2020 [employer] This EMS Care Summary contains data elements from the applicable legal record (which may be displayed differently). It is designed to provide pertinent information for the following purposes: continuity of care, clinical quality, and state data reporting. The complete legal record is available to ED staff and administrators of the receiving hospital in [employer]'s Patient Tracker. All data is provided "as is."
[2019-12-14 17:46] LABS: WBC 16.1 thou/uL (4.0-11.0)
[2019-12-14 17:48] LABS: MCH 31.3 pg (26.0-34.0); MCHC 30.9 g/dL (28.0-37.0); MCV 101.4 fL (80.0-100.0); PLATELET COUNT 514 thou/uL (150-400); RBC 1.96 mil/uL (4.20-5.00); RDW 21.2 % (10.5-14.5)
[2019-12-14 17:52] LABS: HEMOGLOBIN 6.1 gm/dL (12.0-15.0)
[2019-12-14 17:53] LABS: HEMATOCRIT 19.9 % (37.0-47.0)
[2019-12-14 17:54] LABS: ANION GAP 15 mmol/L (7-16); BUN 49 mg/dL (7-18); CALCIUM 8.3 mg/dL (8.5-10.1); CHLORIDE 104 mmol/L (98-107); CO2 20 mmol/L (21-32); CREATININE 1.6 mg/dL (0.6-1.0); GLUCOSE 115 mg/dL (74-106); POTASSIUM 5.5 mmol/L (3.5-5.1); SODIUM 139 mmol/L (136-145)
[2019-12-14 18:04] LABS: APTT 30.9 Seconds (24.5-32.8); INR 1.2; PROTIME 12.7 Seconds (9.3-11.4)
[2019-12-14 18:22] LABS: ALBUMIN 2.6 g/dL (3.4-5.0); MAGNESIUM 2.2 mg/dL (1.8-2.4); SGOT 35 U/L (15-37); SGPT 18 U/L (30-65); TOTAL BILIRUBIN 0.2 mg/dL (0.2-1.0); TOTAL PROTEIN 6.1 g/dL (6.4-8.2); TROPONIN-I <0.06 ng/mL (<0.06)
[2019-12-14 18:39] LABS: ABSOLUTE NEUTROPHILS 15.6 thou/uL (1.4-8.2); MACROCYTES 1+; METAMYELOCYTES 1 %; NUCLEATED RBCS 7 /100WBC
[2019-12-14 18:40] LABS: ANISOCYTOSIS 3+; POLYCHROMASIA SLIGHT; SCHISTOCYTES OCCASIONAL
[2019-12-14 20:14] LABS: URINE BILIRUBIN NEGATIVE (Negative); URINE BLOOD NEGATIVE (Negative); URINE CLARITY CLEAR; URINE COLOR YELLOW; URINE GLUCOSE-RANDOM* NEGATIVE (Negative); URINE KETONES NEGATIVE (Negative); URINE LEUKOCYTES-REFLEX NEGATIVE (Negative); URINE NITRITE-REFLEX NEGATIVE (Negative); URINE PROTEIN (DIPSTICK) NEGATIVE (Negative); URINE UROBILINOGEN 0.2 E.U./dl (0.2-1.0)
[2019-12-14 21:20] VITALS: BP 163/79; BP 168/81; BP 182/112
[2019-12-15 04:07] VITALS: BP 190/72; BP 192/78; BP 194/71; BP 197/80; BP 204/69
[2019-12-15] MEDS ORDERED: IRON325 M1 PO (07:20)
[2019-12-15] MEDS ORDERED: PREDNISONE 10 M10 MG PO (07:21)
--- NOTE | 2019-12-15 07:54 | NUR ---
ABHILASH AND SPOKE WITH DR ADRIAN ABOUT SOME NOTED ANXIETY THE PT HAS DISPLAYED THAT HAS BEEN NOTED BY THIS PAUL CHAPARRO RN AND LAURITA SARAVIA. DR ADRIAN UPDATED THAT PT TAKES PO XANAX BID. DR ADRIAN STATES THAT HE WILL RESTART PT'S PO XANAX
[2019-12-15 08:04] VITALS: BP 176/89
[2019-12-15 08:13] LABS: HEMATOCRIT 36.2 % (37.0-47.0)
[2019-12-15 08:18] LABS: HEMOGLOBIN 11.2 gm/dL (12.0-15.0)
[2019-12-15 10:30] LABS: ABSOLUTE RETIC COUNT 0.1203 10^6/uL; OBSERVED RETIC COUNT 3.42 % (0.6-2.6)
[2019-12-15 10:41] LABS: CALCIUM 7.5 mg/dL (8.5-10.1); CREATININE 1.2 mg/dL (0.6-1.0); POTASSIUM 4.7 mmol/L (3.5-5.1)
[2019-12-15 10:45] LABS: % SATURATION 26 % (20-39); IRON 68 ug/dL (50-170); TIBC 257 ug/dL (250-450)
--- NOTE | 2019-12-15 10:58 | EKG ---
[facility] [place] [address] ELECTROCARDIOGRAM REPORT Name: KATIE DUCKWORTH Room #: 170-6 ADM IN M.R.#: [id number] Admission: 12/14/19 Attend Phys: Brendon Wilks MD Discharge: Date of : 51 Report #: [id number] THIS REPORT FOR: cc: Matt Carey MD, Neal A. MD Lundgren,Dino Barr MD [facility] ~ THIS REPORT FOR: //name// [facility] ED Test Date: 2019-12-14 Test Time: 17:35:33 Pat Name: KATIE DUCKWORTH Department: Room: 170 Gender: F Safety Tech[facility] 1955 Requested By: Gerber Almaguer Order Number: [id number] MD: Dino Qiu Measurements Intervals [place] Rate: 115 P: 70 NC: 128 QRS: 156 QRSD: 77 T: 47 QT: 287 QTc: 397 Interpretive Statements Sinus tachycardia Low voltage Nonspecific T abnormalities Compared to ECG 07/22/2018 14:23:20 T-wave abnormality now present Electronically Signed On 12-15-2019 10:58:17 CDT by Dino Qiu [email or web address] <ELECTRONICALLY SIGNED> By: Dino Qiu MD, [facility] 12/15/19 1058 1735 1735 Dino Qiu MD, [facility] /EPI
[2019-12-15 11:26] LABS: FOLIC ACID 7.6 ng/mL (8.6-58.9)
--- NOTE | 2019-12-15 20:53 | NUR ---
PER MICHELLE MONZON,PAPER DELIVERER PATIENT IS SUITABLE TO BE ADMITTED TO WITH SECOND NEGATIVE COVID SWAB
[2019-12-15 23:36] VITALS: BP 140/59
[2019-12-16] VITALS: BP 144/58
[2019-12-16 03:40] VITALS: BP 168/61
--- NOTE | 2019-12-16 05:01 | NUR ---
Pt was a patient from ER who had been in the ER for over 24 hours.Pt is alert and oriented. No sign of distress noted in pt. Pt presents with COPD exac and bleed. Pt had received blood in the ER prior to coming the floor. Pt has also been seen by pulmonology. Admission assessment and data completed with patient. Pt verbalizes pain to left shoulder and right knee. Oxyge saturation stable at 2l NC. continue to monitor. No further needs at this time
[2019-12-16 07:45] VITALS: BP 141/77
[2019-12-16 10:02] LABS: ABSOLUTE NEUTROPHILS 14.8 thou/uL (1.4-8.2); BASOPHILS 0.3 % (0.0-2.0); HEMATOCRIT 32.7 % (37.0-47.0); HEMOGLOBIN 10.3 gm/dL (12.0-15.0); LYMPHOCYTES 2.8 % (24.0-44.0); MCH 30.5 pg (26.0-34.0); MCHC 31.7 g/dL (28.0-37.0); MONOCYTES 2.4 % (1.0-8.0); POLYS 94.5 % (36.0-66.0); RBC 3.39 mil/uL (4.20-5.00); RDW 20.6 % (10.5-14.5); WBC 15.7 thou/uL (4.0-11.0)
[2019-12-16 10:14] LABS: MCV 96.2 fL (80.0-100.0); PLATELET COUNT 308 thou/uL (150-400)
[2019-12-16 10:17] LABS: CALCIUM 7.4 mg/dL (8.5-10.1); POTASSIUM 3.7 mmol/L (3.5-5.1)
[2019-12-16 11:30] VITALS: BP 132/70
[2019-12-16 12:10] LABS: ANISOCYTOSIS 2+; POIKILOCYTOSIS SLIGHT; POLYCHROMASIA SLIGHT; SCHISTOCYTES FEW
[2019-12-16 15:40] VITALS: BP 133/63
[2019-12-16 20:15] VITALS: BP 135/59
--- NOTE | 2019-12-16 20:19 | NUR ---
RECEIVED PT'S CARE AROUND 0725; PT. ON BED; ALERT; DURING ASSESSMENT AOX4; C/O PAIN OVER L. SIDE SHOULDER; PRN ACETAMINOPHEN AVAILABLE; PRN PAIN MEDICATION Q12H; PHYSICIAN NOTIFIED; RE-ASSESSMENT PT. ST. LOW RELIEVE; PHYSICIAN NOTIFIED; PRN HYDROCONE Q4H; MEDICATION GIVEN; RE-ASSESSMENT; PT. ST. DECREASE PAIN; D/C PROTONIX IV; UP TO BEDSIDE COMMODE PRN; SR ON THE MONITOR; PT. REQUESTED DROPS FOR DRY EYE; PHYSICIAN NOTIFIED; ASSESSMENT CHARGED; FOLLOWING POC; PASSED ON REPORT;
[2019-12-17 04:45] VITALS: BP 137/65
--- NOTE | 2019-12-17 05:23 | NUR ---
SLEPT MOST OF SHIFT. TURNS SELF AND MOVES AROUND IN BED. ASSIST UP TO BSC WITH ONE ASSIST NEEDED. BED ALARM ON. WORKING ON GOALS AND PLAN OF CARE FOR NOC. PROGRESSING SLOWLY TOWARDS DISCHARGE GOALS. CONTINUE TO ASSES. NO FURTHER COMPLAINTS OF PAIN AT THIS TIME.
[2019-12-17 05:32] LABS: HEMATOCRIT 29.8 % (37.0-47.0); HEMOGLOBIN 9.6 gm/dL (12.0-15.0); MCH 30.7 pg (26.0-34.0); MCHC 32.3 g/dL (28.0-37.0); MCV 95.2 fL (80.0-100.0); RBC 3.13 mil/uL (4.20-5.00)
[2019-12-17 05:38] LABS: CALCIUM 7.3 mg/dL (8.5-10.1); CREATININE 1.1 mg/dL (0.6-1.0); POTASSIUM 3.6 mmol/L (3.5-5.1)
[2019-12-17 05:39] LABS: WBC 11.2 thou/uL (4.0-11.0)
[2019-12-17 07:30] VITALS: BP 137/90
[2019-12-17 11:50] VITALS: BP 115/51
--- NOTE | 2019-12-17 13:24 | NUR ---
patient admits with anemia, gi bleed, copd, and fell at home. Patient resides at home alone. All needs on one level, laundry in basement. Patient with hx of arthritis. Patient uses a walker and cane at home when she feels arthritis flares. 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 She reports fall because she planned to turn off computer and did not turn on light in room and tripped. Discussed post acute care and patient wants to see how she works with PT. She has been to [facility] and [facility] in past. She is agreeable to use [facility] again. [facility] following.
[2019-12-17 15:50] VITALS: BP 158/78
--- NOTE | 2019-12-17 18:36 | NUR ---
ASSESSMENT CHARTED. PT ALERT AND ORIENTED WITH FORGETFULNESS. PRN PAIN MED GIVEN FOR LEFT SHOULDER PAIN. PARTICIPATED ON PT/OT. NEW ORDERS NOTED. NO CONCERNS AT THIS TIME. WILL CONTINUE TO MONITOR.
[2019-12-17 20:15] VITALS: BP 149/83
[2019-12-18 03:27] VITALS: BP 143/81
--- NOTE | 2019-12-18 04:28 | NUR ---
ASSUMED PT CARE AT THE CHANGE OF SHIFT, PT IS AWAKE, ALERT AND ORIENTEDX4, SR ON THE MONITOR, ASSESSMENTS CHARTED, C/O PAIN, MEDICATED PRN WITH PARTIAL RELIEF, MEDICATIONS GIVEN ORDERED, VSS, REMAINED ON 2L OF O2 VIA NC, O2SATS STABLE; RESTED WELL THROUGH THE NIGHT, WILL CONTINUE TO MONITOR
[2019-12-18 07:30] VITALS: BP 176/83
[2019-12-18] MEDS ORDERED: CIPRO500 MG PO (11:00)
[2019-12-18] MEDS ORDERED: PREDNISONE 20 M20 M1 PO (11:01)
[2019-12-18 12:00] VITALS: BP 138/77
--- NOTE | 2019-12-18 13:07 | NUR ---
patient evaled by [facility] and accepted. Plan transfer to acute rehab today. Patient in agreement.
--- NOTE | 2019-12-18 13:29 | NUR ---
ASSESSMENT CHARTED. PT ALERT AND ORIENTED. PLEASANT AND COOPERATIVE WITH CARES. SEEN BY DR. BROOKS. ORDERS GIVEN TO DISCHARGE PT TO REHAB. REPORT CALLED IN TO MORGAN MORA.
== END 2019-12-18 14:24 | DRG 871 ==
LOC: ER 15:59 → EROBS 19:28 → 2N 19:28 → EROBS 12-15 07:45 → 2N 12-15 23:44
PROVIDERS: Emergency Medicine; Hospitalist; Nurse Practitioner; Nurse Practitioner Family; ADMIT Family Medicine; ATTEND Family Medicine
PROC: 30233N1 Transfusion of Nonautologous Red Blood Cells into Peripheral Vein, Percutaneous Approach (ICD-10-PCS; principal; 2019-12-14)
DX: A41.9 Sepsis, unspecified organism (principal); J96.21 Acute and chronic respiratory failure with hypoxia; N17.0 Acute kidney failure with tubular necrosis; J18.9 Pneumonia, unspecified organism; S22.9XXA Fracture of bony thorax, part unspecified, initial encounter for closed fracture; S42.92XA Fracture of left shoulder girdle, part unspecified, initial encounter for closed fracture; K92.2 Gastrointestinal hemorrhage, unspecified; D62 Acute posthemorrhagic anemia; J44.1 Chronic obstructive pulmonary disease with (acute) exacerbation; J44.0 Chronic obstructive pulmonary disease with (acute) lower respiratory infection; E46 Unspecified protein-calorie malnutrition; Z68.1 Body mass index [BMI] 19.9 or less, adult; E03.9 Hypothyroidism, unspecified; N18.3 Chronic kidney disease, stage 3 (moderate); I12.9 Hypertensive chronic kidney disease with stage 1 through stage 4 chronic kidney disease, or unspecified chronic kidney disease; M48.00 Spinal stenosis, site unspecified; M41.9 Scoliosis, unspecified; S40.021A Contusion of right upper arm, initial encounter; K52.89 Other specified noninfective gastroenteritis and colitis; Z20.828 Contact with and (suspected) exposure to other viral communicable diseases; S20.211A Contusion of right front wall of thorax, initial encounter; W07.XXXA Fall from chair, initial encounter; S23.101A Dislocation of unspecified thoracic vertebra, initial encounter; M06.9 Rheumatoid arthritis, unspecified; F32.9 Major depressive disorder, single episode, unspecified; F41.9 Anxiety disorder, unspecified; Z79.899 Other long term (current) drug therapy; Z87.891 Personal history of nicotine dependence; Z88.8 Allergy status to other drugs, medicaments and biological substances; Z99.81 Dependence on supplemental oxygen; Y93.89 Activity, other specified; Y92.008 Other place in unspecified non-institutional (private) residence as the place of occurrence of the external cause; Y99.8 Other external cause status
CPT/HCPCS: 10081

== ENCOUNTER 2019-12-18 12:06 | Inpatient (IN) | payer OTHER, MEDICARE ==
[~2019-12-18] VITALS: Ht 147.3 cm; Wt 43.5 kg
[~2019-12-18 12:06] MED LIST changes: +CIPRO500 MG PO; +IRON325 M1 PO; +PREDNISONE 10 M10 MG PO
[2019-12-18 14:30] VITALS: BP 140/70
--- NOTE | 2019-12-18 15:50 | NUR ---
1430 ADMITTED TO ROOM 515. PATIENT IS ALERT AND ORIENTED X4. PATIENT URBINA'S. PATIENT HAS BRUISEING TO LEFT SHOULDER. LUNGS ARE COARSE AND DEMINISHED. PATIENT IS ON 02 AT 2L PER N/C. PATIENT HAS S.L. IN HER LEFT FORARM. CALL LIGHT IS IN REACH. PATIENT SEEN BY O.T. PATIENT WAS ASSISTED TO BS TO HAVE BM AND VOID ALICIA COLORED URINE. FALL AND SAFETY PROTOCOLS IN PLACE. C/O PAIN IN HER LEFT SHOULDER. MEDICATED WITH PRN PAIN MED. ORTHO CONSULT CALLED TO OFFICE. P.T./S.T. EVALS TO BE DONE IN A.M. WILL CONTINUE TO MONITER.
--- NOTE | 2019-12-18 16:49 | NUR ---
chart review. pt new to acute rehab today. cm unable to visit with pt rt she out of room for ct of left should rt fall she had at home prior to hospital. lives alone, 3 steps to enter, the steps to basement where laundry room is. had falls at home. uses home o2 from [facility], [place] and had [facility] in past. will cont following as needed for dc needs.
[2019-12-18 19:29] VITALS: BP 132/77
--- NOTE | 2019-12-19 00:29 | NUR ---
PT ALERT AND ORIENTED X 4. UP TO BSC WITH ASSIST X 1. HAS BEEN UP TO BSC FREQUENTLY VOIDING IN SMALL AMTS. PT C/O PAIN IN LEFT SIDE. HYDROCODONE GIVEB AT HS. XANAX ALSO GIVEN AT HS PER PT REQUEST. LEFT ARM AND SIDE BRUISED. LEFT ARM SWOLLEN. ELEVATED ON PILLOWS. PT HAS BEEN AWAKE MUCH OF NIGHT. BED ALARM ON FOR SAFETY. PT CHECKED ON HOURLY ROUNDS.
[2019-12-19 08:41] LABS: HEMATOCRIT 34.7 % (37.0-47.0); MCH 30.2 pg (26.0-34.0); MCHC 31.6 g/dL (28.0-37.0); MCV 95.3 fL (80.0-100.0); RBC 3.64 mil/uL (4.20-5.00); RDW 19.7 % (10.5-14.5); WBC 11.7 thou/uL (4.0-11.0)
[2019-12-19 08:47] VITALS: BP 148/73
[2019-12-19 09:23] LABS: CALCIUM 7.9 mg/dL (8.5-10.1); CREATININE 1.1 mg/dL (0.6-1.0); POTASSIUM 3.1 mmol/L (3.5-5.1)
--- NOTE | 2019-12-19 11:26 | NUR ---
ASSUMED CARE AT 0700. PATIENT IS ALERT AND ORIENTED X4. PATIENT HAS SWELLING IN HER LEFT HAND AND SHOULDER WITH BRUISING. LUNGS ARE CLEAR. ABD IS SOFT WITH BSX4. UP TO THE BSC TO VOID AND HAVE BM. UP IN THE CHAIR FOR MEALS. UP WITH THE ASSIST OF 1 STAFF AND GAIT BELT. PT/OT/ST EVALS COMPLETED. FALL AND SAFETY PROTOCOLS IN PLACE. PATIENT HAS S.L. IN HER RIGHT FORARM. C/O PAIN IN HER LEFT SHOULDER. MEDICATED WITH PRN PAIN MED. CONTINUES TO PROGRESS SLOWLY TOWARDS D/C GOALS. WILL CONTINUE TO MONITER.
[2019-12-19 20:26] VITALS: BP 170/77
--- NOTE | 2019-12-20 02:42 | NUR ---
TRANSFERS UP TO BSC FOR VOID AND SMALL BMs. PAIN MED FOR LEFT SHOULDE AT HS HELPFUL. PLEASANT, ALERT AND ORIENTED, BED ALARM ON FOR SAFETY.
[2019-12-20 08:06] VITALS: BP 148/86
--- NOTE | 2019-12-20 14:48 | NUR ---
09:00 PICKED UP PT AND TRANSFERRED HER TO [place] [facility] PER [place]QUEST OF PT. SHE IS VERY HELPFUL AND DOES MUCH SHE CAN. WEARING BRIEF, REMOVED AND PUT SOME SHORT ON HER POST VOID. VERY REALISTIC ABOUT HER OWN SELF CARE, DISCUSSED WITH PT/OT A TOILET MODIFCATION SHE NEEDS TO GET FOR WHEN SHE GOES HOME TO HELP WITH VOIDING AND HIP EASE OF TRANSFER, SAID NEIGHBOR CAN HELP INSTALL SUCH. REPORTS PAIN GENERALIZED AND RIGHT SHOULDER, "COMES AND GOES NOW", NOT CONTANT PRIOR. WILL CONTINUE TO MONITOR.
[2019-12-21 01:03] VITALS: BP 153/75
--- NOTE | 2019-12-21 05:26 | NUR ---
Pt. rested quietly at intervals during the night when checked on during frequent rounds. She has been given po pain meds for c/o shoulder pain (see emar) with some relief noted. Bed alarm is on.
[2019-12-21 05:30] LABS: HEMATOCRIT 30.5 % (37.0-47.0); HEMOGLOBIN 9.7 gm/dL (12.0-15.0); MCH 30.4 pg (26.0-34.0); MCHC 31.8 g/dL (28.0-37.0); MCV 95.7 fL (80.0-100.0); PLATELET COUNT 286 thou/uL (150-400); RBC 3.18 mil/uL (4.20-5.00); RDW 21.4 % (10.5-14.5); WBC 11.6 thou/uL (4.0-11.0)
[2019-12-21 05:54] LABS: ALBUMIN 2.6 g/dL (3.4-5.0); CALCIUM 8.9 mg/dL (8.5-10.1); MAGNESIUM 1.5 mg/dL (1.8-2.4); POTASSIUM 3.5 mmol/L (3.5-5.1); TOTAL BILIRUBIN 0.4 mg/dL (0.2-1.0)
[2019-12-21 07:30] VITALS: BP 133/73
--- NOTE | 2019-12-21 10:00 | NUR ---
Assumed care 0700. Bright, Cheery outlook on life. Cooperative, compliant with meds and therapies. Bruising on left arm and hip, severe. Left arm/hand swollen. Cautiously reminds staff of her left arm.
[2019-12-21 11:12] LABS: ABSOLUTE NEUTROPHILS 10.7 thou/uL (1.4-8.2); ANISOCYTOSIS 1+; ATYPICAL LYMPHS 1 %; METAMYELOCYTES 1 %; MYELOCYTES 1 %; NUCLEATED RBCS 1 /100WBC; POIKILOCYTOSIS SLIGHT
[2019-12-21 11:13] LABS: POLYCHROMASIA SLIGHT; TEARDROPS OCCASIONAL
--- NOTE | 2019-12-21 18:23 | NUR ---
Patient cooperative, compliant. Had large brown BM. Pain undercontrol with medication. Some meds given late due to the hecticness of the milieu. Rarely took pain med on dayshift. Pt. has sense of humor, cooperative with therapies. She does not want anyone to touch her left arm due to fear of being h urt there.
--- NOTE | 2019-12-22 03:15 | NUR ---
Assumed care on 12/21/19 @ 19:15, in bed, awake alert and oriented x4, pleasant affect and jovial manner noted. Bruise to L shoulder and L hip noted. Assist x 1 when transferring from bed to BSC with gait belt and weight bearing to R lower extremity. Cooperated with assessmenty, HRRR, Lungs auscultated with course breath sounds. ABD N x 4 Q and patient reports x2-3 BM today. VSS, Pt requested and provided Todd 5/325 for 6/10 pain to the left upper and lower extremities @ 21:15, also alprazolam 0.5 provided for anxiety, which patient was able to verbalize. Follow up pain assessment noted to be in bed with eyes closed, respirations even and unlabored. Oxygen provided via n/c @ 2L. Bed in low position bed alarm set. At 0000 patient awakened for Sucrafate 1gm provided as ordered. Will continue to monitor as per protocol for patient safety and comfort.
[2019-12-22 08:33] VITALS: BP 142/73
--- NOTE | 2019-12-22 09:38 | NUR ---
ASSUMED CARE AT 0700. PATIENT IS ALERT AND ORIENTED X4. PATIENT HAS BRUISING TO HER LEFT SHOULDER , HIP AND LEG. LUNGS ARE COARSE AND DEMINISHED. PATIENT CONTINUES ON 02 AT 2L PER N/C. PATIENT CONTINUES ON RESPIRATORY TX. ABD IS SOFT WITH BSX4. UP TO BSC TO VOID AND HAVE BM. PATIENT IS UP WITH ASSIST OF ONE STAFF WITH GAIT BELT AND WALKER. UP IN THE W/C FOR BREAKFAST. FALL AND SAFETY PROTOCOLS IN PLACE. C/O PAIN IN HER SHOULDER. MEDICATED WITH PRN PAIN MED. CONTINUES TO PROGRESS TOWARDS D/C GOALS. WILL CONTINUE TO MONITER.
[2019-12-22 20:18] VITALS: BP 147/84
--- NOTE | 2019-12-23 02:52 | NUR ---
LEFT SHOULDER HAS SOME THROBBING PAIN WHICH IS MODERATED WITH PAIN MED BUT STILL HAS A BIT OF A THROB, ICE BAG POSTERIORLY HELPFUL. PT CONCERNED ABOUT LIGHT SERSANGINOUS DRAINGE FROM LEFT SIDE WHICH DOES NOT FEEL WET, WONDERS WHY THIS WOULD DEVELOP AFTER A WEEK, SHOULDER TO TRICEP IS BRUISED AND SWOLLEN TO CLOSELY MATCH THE COLOR OF THE DRAINAGE. PATIENT GETS UP TO BSC WITH ONE PERSON ASSIST, CALLS APPROPRIATELY, VOIDS WELL
[2019-12-23 06:23] LABS: HEMATOCRIT 31.5 % (37.0-47.0); HEMOGLOBIN 10.2 gm/dL (12.0-15.0); MCH 31.3 pg (26.0-34.0); MCHC 32.5 g/dL (28.0-37.0); MCV 96.4 fL (80.0-100.0); PLATELET COUNT 316 thou/uL (150-400); RBC 3.27 mil/uL (4.20-5.00); RDW 22.3 % (10.5-14.5); WBC 10.6 thou/uL (4.0-11.0)
[2019-12-23 07:12] LABS: ALBUMIN 2.9 g/dL (3.4-5.0); CALCIUM 9.7 mg/dL (8.5-10.1); CREATININE 1.1 mg/dL (0.6-1.0); MAGNESIUM 1.9 mg/dL (1.8-2.4); PHOSPHORUS 3.5 mg/dL (2.5-4.9); POTASSIUM 3.4 mmol/L (3.5-5.1); TOTAL BILIRUBIN 0.4 mg/dL (0.2-1.0); TOTAL PROTEIN 6.5 g/dL (6.4-8.2)
[2019-12-23 08:42] LABS: ABSOLUTE NEUTROPHILS 8.9 thou/uL (1.4-8.2); ANISOCYTOSIS 2+; METAMYELOCYTES 1 %; MICROCYTES 1+; NUCLEATED RBCS 3 /100WBC; PLATELET ESTIMATE NORMAL
[2019-12-23 10:10] VITALS: BP 156/75
--- NOTE | 2019-12-23 11:51 | NUR ---
ASSUMED CARE AT 0700. PATIENT IS ALERT AND ORIENTED X4. PATIENT HAS LEFT SHOULDER PAIN AND BRUSING. LUNGS ARE COARSE AND DEMINISHED. FALL AND SAFETY PROTOCOLS IN PLACE. C/O PAIN IN HER LEFT SHOULDER . MEDICATED WITH PRN PAIN MED. UP IN BED FOR MEALS. WILL CONTINUE TO MONITER.
[2019-12-23 23:20] VITALS: BP 153/86
--- NOTE | 2019-12-24 00:50 | NUR ---
PT ALERT AND ORIENTED X 4. UP TO BSC WITH ASSIST X 1. LEFT ARM EDEMATOUS. ELEVATED ON PILLOW. DRESSING TO LEFT ARM C/D/I. PT C/O PAIN IN LEFT SHOULDER AND ARM. HYDROCODONE GIVEN AT HS. XANAX ALSO GIVEN PER PT REQUEST FOR ANXIETY. 02 ON AT 2L PER NC CONT. 02 SAT 99%. BED ALARM ON FOR SAFETY. PT APPEARS TO BE SLEEPING ON HOURLY ROUNDS.
[2019-12-24 13:43] VITALS: BP 173/86
--- NOTE | 2019-12-24 19:07 | NUR ---
PT A&OX4. TRANSFERS WITH ASSIST X1. L SHOULDER IS FRACTURED HAS SOFT SLING IN PLACE. L HAND IS SWOLLEN AND BRUISED. PT HAD DOPPLER AND SHOWED NEG FOR BLOOD CLOT TO L AC. TOLERATING PO PAINMED WELL
[2019-12-24 19:45] VITALS: BP 150/78
--- NOTE | 2019-12-25 04:26 | NUR ---
UP TO VOID ON BSC WITH GAIT BELT, WALKER, ONE PERSOM ASSIST. USING SLING FOR SUPPORT EVEN WHILE IN BED. PAIN ILL AND XANX AT HS TO HELP HER SLEEP IS WORKING WELL.
--- NOTE | 2019-12-25 06:30 | NUR ---
ASKING FOR EARLY AM MEDS, THYROID AND CARAFATE. UP TO BSC WITH MINMAL ASSIST FOR VOID AND BM
[2019-12-25 11:56] VITALS: BP 120/56
--- NOTE | 2019-12-25 13:14 | NUR ---
team meeting, recommendation: pt voice to therapy that its going to be diff going home with out use of left arm yet per pt. dc [facility] skilled, she will need covid test 48hr prior to dc.
[2019-12-25 19:46] VITALS: BP 158/87
--- NOTE | 2019-12-26 01:54 | NUR ---
PT ALERT AND ORIENTED X 4, FORGETFUL. UP TO BSC WITH ASSIST X 1. LEFT ARM REMAINS SWOLLEN AND BRUISED . LEFT ARM DRESSING C/D/I. ARM ELEVATED ON PILLOWS. PT C/O PAIN IN LEFT SHOULDER. HYDROCODONE GIVEN AT HS. ALSO GIVEN XANAX PER PT REQUEST FOR ANXIETY. BED ALARM ON FOR SAFETY. PT APPEARS TO BE SLEEPING ON HOURLY ROUNDS.
[2019-12-26 08:00] VITALS: BP 146/81
--- NOTE | 2019-12-26 11:20 | NUR ---
ASSUMED CARE AT 0700. PATIENT IS ALERT AND ORIENTED X4. PATIENT HAS FX LEFT SHOULDER WITH BRUISING AND IN A SLING. LUNGS ARE COARSE AND DEMINISHED. PATIENT CONTINUES ON 02 AT 2L PER N/C AND CONTINUES ON RESPIRATORY TX. PATIENT IS UP WITH ASSIST OF 1 STAFF AND GAIT BELT TO [facility] LEFT ARM DRESSING CHANGED ACCORDING TO PROTOCOL. FALL AND SAFETY PROTOCOLS IN PLACE. UP IN THE CHAIR FOR MEALS. C/O LEFT SHOULDER PAIN. MEDICATED WITH PRN PAIN MED. CONTINUES TO PROGRESS TOWARDS D/C GOALS. WILL CONTINUE TO MONITER.
--- NOTE | 2019-12-26 14:36 | NUR ---
FAXED REFERRAL TO [facility] RECEIVED CONFIRMATION AND LEFT MSG WITH MARKELL IN ADM. PT TO DC 12/27. FAXED REFERRAL TO [facility] RECEIVED CONFIRMATION AND LEFT MSG WITH YANICK IN ADM. FAXED REFERRAL TO [facility] RECEIVED CONFIRMATION AND SPOKE WITH RACHELLE ADM [facility] SHE RECEIVED REFERRAL AND WILL REVIEW.
[2019-12-26 20:00] VITALS: BP 144/64
--- NOTE | 2019-12-27 03:16 | NUR ---
PATIENT HAS BEEN IN BED TONIGHT. SHE HAS A SLING ON FRACTURED LEFT SHOULDER. SHE ALSO HAS DRESSING OVER OLD IV SITE ON ARM ALSO. PATIENT DID HAVE A BM THIS EVENING WHEN SHE WAS ASSISTED UP TO THE BSC USING GAIT BELT. PATIENT IS ON 02 AT 2L NC. SHE HAD HYDROCODONE AND XANAX AT HS FOR LEFT SHOULDER DISCOMFORT 5/10. LEFT HAND WITH BRUISING AND 1-2+EDEMA. PATIENT IS PLEASANT AND COOPERATIVE AND PAIN UNDER CONTROL WITH PRN PAIN MEDS AND DECREASED MOVEMENT TO LEFT SHOULDER. CONTINUING TO MONITOR.
[2019-12-27 08:32] VITALS: BP 161/85
--- NOTE | 2019-12-27 13:46 | NUR ---
sukhwinder spoke with [facility], passed on that [facility] can accept and have not heard back from [facility]. " oh will i want [facility] to be my 1st choice, if can check with them"/memo. updates to be sent to [facility] skilled.
--- NOTE | 2019-12-27 14:03 | NUR ---
ASSUMED CARE AT 0700. PATIENT IS ALERT AND ORIENTED X4. PATIENT URBINA'S. PATIENT HAS BRUISED AND SWOLLEN LEFT SHOULDER FROM FALL. PATIENT HAS ARM IN SLING. LUNGS ARE COARSE AND DEMINISHED. PATIENT IS ON 02 AT 2L PER N/C. PATIENT CONTINUES TO PROGRESS SLOWLY TOWARDS D/C GOALS. UP TO BSC TO VOID AND HAVE BM. UP IN CHAIR FOR MEALS. FALL AND SAFETY PROTOCOLS IN PLACE. C/O PAIN IN HER LEFT SHOULDER. MEDICATED WITH PRN PAIN MED. CONTINUES TO PROGRESS TOWARDS D/C GOALS. DRESSING TO LEFT AC CHANGED ACCORDING TO PROTOCOLS. WILL CONTINUE TO MONITER.
--- NOTE | 2019-12-27 16:19 | NUR ---
sukhwinder called spoke with diane liaison with [facility] to see if able to accept for skilled rehab on " they are still reviewing and will let you know tomorrow"/diane. education that other facility do no take 2 days to decide if they can accept for short rehab.
--- NOTE | 2019-12-27 16:27 | NUR ---
FAXED CLINICAL UPDATE TO [facility] SPOKE WITH AIMEE IN ADM SHE RECEIVED UPDATE. DP TO FOLLOW.
--- NOTE | 2019-12-28 04:08 | NUR ---
LEFT SHOULDER CAUSING MORE PAIN THAN USUAL FOR THIS PATIENT. ORDER FOR TYLENOL AT MIDNIGHT PER PATIENT REQUEST. ICE, SLING AND PILLOWS FOR SUPPORT. UP TO TOILET WITH MODERATE ASSIST.
[2019-12-28 05:15] VITALS: BP 153/64
[2019-12-28 08:15] VITALS: BP 160/88
--- NOTE | 2019-12-28 15:14 | NUR ---
ASSUMED CARES AT 0700. PT AWKE, ALERT AND ORIENTED*4. BP AND HR ELEVATED THIS AM MEDICATION ADMINISTERED PER ORDER. C/O PAIN IN LEFT SHOULDER, PAIN MEDICATION ADMINISTERED NEEDED, ICE PACK IN PLACE LIDOCAINE PATCH ON LEFT SHOULDER. LEFT UE REMAINS BRUISED AND EDEMATOUS, EXTREMITY ELEVATED. SLING REMAIN IN PLACE. PT UP WITH 1 MIN ASSIST, GB AND WALKER AND TOLERATED WELL. Q1H VISUAL CHECKS. CALL LIGHT WITHIN REACH
[2019-12-28 15:55] LABS: HEMATOCRIT 31.2 % (37.0-47.0); HEMOGLOBIN 9.9 gm/dL (12.0-15.0); MCH 31.1 pg (26.0-34.0); MCHC 31.8 g/dL (28.0-37.0); MCV 97.9 fL (80.0-100.0); RBC 3.19 mil/uL (4.20-5.00); RDW 21.7 % (10.5-14.5); WBC 14.5 thou/uL (4.0-11.0)
[2019-12-28 16:18] LABS: CALCIUM 8.4 mg/dL (8.5-10.1); CREATININE 1.2 mg/dL (0.6-1.0); POTASSIUM 4.1 mmol/L (3.5-5.1)
[2019-12-28 18:35] LABS: URINE BILIRUBIN NEGATIVE (Negative); URINE BLOOD NEGATIVE (Negative); URINE CLARITY CLEAR; URINE COLOR YELLOW; URINE GLUCOSE-RANDOM* NEGATIVE (Negative); URINE KETONES NEGATIVE (Negative); URINE LEUKOCYTES-REFLEX TRACE (Negative); URINE NITRITE-REFLEX NEGATIVE (Negative); URINE PROTEIN (DIPSTICK) NEGATIVE (Negative); URINE UROBILINOGEN 0.2 E.U./dl (0.2-1.0)
--- NOTE | 2019-12-29 01:37 | NUR ---
UP TO BSC WITH MINIMAL ASSIST, WEARING SLING FOR SUPPORT, LESS PAIN THAN 24 HOURS AGO. XANAX FOR ANXIETY. CXR DONE IN ROOM
--- NOTE | 2019-12-29 07:26 | NUR ---
ASKING FOR ROUTINE MEDS AT APPROPRIATE TIMES LAST NIGHT AND THIS MORNING. UP TO BSC FOR LARGE BM THIS MORNING
--- NOTE | 2019-12-29 14:32 | NUR ---
ASSUMED CARES AT 0700. PT ALERT AND ORIENTED*4. HR ELEVATED THIS AM R/T ANXIETY AND PAIN, PAIN MEDICATION ADMINISTERED NEEDED. ALL OTHER VITALS REMAIN STABLE. LEFT SHOULDER CONTINUES TO HAVE EDEMA, BRUISE IMPROVING, SLING REMAINS IN PLACE AND EXTREMITY ELEVATED. PT ANXIOUS REGARDING HER DC PLANS TUESDAY TO [facility], SAID AFTER SLEEPING OVER THE ISSUE SHE FEELS LIKE ITS GOOD FOR HER AND THAT ITS ONLY TEMPORARY. PT UP WITH 1 MIN ASSIST, GB AND W/C. TOLERATED THERAPY WELL. Q1H VISUAL CHECKS. CALL LIGHT WITHIN REACH. FALL PRECAUTIONS IN PLACE
[2019-12-29 20:20] VITALS: BP 143/69
--- NOTE | 2019-12-30 01:28 | NUR ---
PT ALERT AND ORIENTED X 4. UP TO BSC WITH ASSIST X 1. LEFT ARM SWOLLEN AND BRUISED. SLING TO LEFT ARM. PT C/O PAIN IN LEFT SHOULDER. HYDROCODONE GIVEN AT HS. XANAX ALSO GIVEN PER PT REQUEST FOR ANXIETY. 02 ON AT 2L PER NC CONT. BED ALARM ON FOR SAFETY. PT APPEARS TO BE SLEEPING ON HOURLY ROUNDS.
[2019-12-30 08:15] VITALS: BP 134/67
--- NOTE | 2019-12-30 14:21 | NUR ---
ASSUMED CARES AT 0700. PT AWAKE, ALERT AND ORIENTED*4. HR ELEVATED, ALL OTHER VITALS STABLE. PT C/O PAIN LEFT UPPER EXTREMITY, PAIN MEDICATION ADMINISTERED NEEDED. EDEMA ON LEFT UE IS DECREASING, BRUISING REMAINS. SLING REMAINS IN PLACE DURING TRANSFERS AND ACTIVITIES. PT UP WITH 1 MIN ASSIST, GB AND WALKER AND TOLERATED WELL. Q1H VISUAL CHECKS. CALL LIGHT WITHIN REACH. FALL PRECAUTIONS IN PLACE
--- NOTE | 2019-12-30 16:06 | HC ---
[facility] [place] [address] CONSULTATION Name: KATIE DUCKWORTH Room #: 515-P ADM IN M.R.#: [id number] Admission: 12/18/19 Attend Phys: Michael Orellana MD Discharge: Date of : 51 Report #: [id number] THIS REPORT FOR: cc: Matt Carey MD, Neal A. MD Deutch,Matt Hatch. PhD ~ CC: Michael Carey DATE OF SERVICE: 12/22/2019 NEUROBEHAVIORAL STATUS EXAMINATION ATTENDING PHYSICIAN: Michael Orellana M.D. SANDWICH WRAPPER: Matt Cash, PhD CLINICAL PRESENTATION: The patient is a 64-year-old white female admitted to the [facility] originally on 12/14/2019 with decreased shortness of breath. She was found to have acute blood loss anemia with a hemoglobin of 6.1. She required 2 units of packed red blood cells. Acute exacerbation of chronic obstructive pulmonary disease was also diagnosed. The patient was COVID-19 negative. She has had chronic treatment with prednisone for severe rheumatoid arthritis. Her initial hospitalization was the result of a fall out of a chair in which she hit the left side of her body, then developed acute on chronic pain in the left shoulder and hip. The patient sustained a left comminuted fracture with dislocation of the left shoulder. Her assessment on admission to the rehab unit included medical complexity with generalized debilitation, acute on chronic respiratory failure, questionable left shoulder comminuted fracture/dislocation, apparently recommendations were nonsurgical approach, acute exacerbation of chronic COPD, rheumatoid arthritis on chronic steroids, acute blood loss anemia status post transfusion. A neuropsychological consultation was requested to provide assistance in the assessment of cognitive and emotional status, and provide recommendations and services as needed. Prior to this most recent admission, the patient had been living alone and independently. She has had multiple surgical interventions to assist in the management of the severe arthritis. She was independent with basic and instrumental activities of daily living. The patient is a high school graduate. She reported having experienced a severe traumatic event about five years ago after discovering her nephew from heart disease. Difficulty with sleep and anxiety has continued since his . The patient does not report [facility] [address] [place] [address] CONSULTATION Name: KATIE DUCKWORTH Room #: 515-P [facility] [place] ..#: [id number] Admission: 12/18/19 Attend Phys: Michael Orellana MD Discharge: Date of : 51 Report #: [id number] difficulty with memory. Prior use of antidepressant medication is reported. Her performance on the MMSE 2 brief version was in the mild range of impairment with a raw score of 13/16 and a T score of 36. She was 3/3 for initial registration, 5/5 for orientation to time and place and 0/3 for immediate recall of 3 items after a brief time delay and distraction. EXAMINATION FINDINGS: Her performance on the MMSE 2 standard version was a raw score of 23 and a T score of 33, which is a percentile rank of 4 suggesting impairment. She was 1/5 for serial sevens, 2/2 for naming, 1/1 for repetition, 3/3 for auditory comprehension. She could read and follow single command and write a sentence. The patient was able to copy a simple geometric design. Clock drawing was generally within normal limits. Difficulty with visual spatial construction is noted, most likely because of her arthritis and orthopedic issues. 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 RECOMMENDATIONS: Continue treatment program for anxiety and depression. The use of antiepressant medication and psychotherapy are indicated. During her rehabilitation problems, she may benefit from the use of relaxation techniques to assist in the management of anxiety. The patient may require increased assistance with management of bill payment and nutrition. Followup assessment by speech and occupational therapy to clarify medication management and meal preparation. Thank you very much for allowing me to provide the consultation on this patient. <ELECTRONICALLY SIGNED> By: Matt Cash, PhD 12/30/19 1606 [id number] Matt Cash, PhD /nt
[2019-12-30 20:00] VITALS: BP 127/73
--- NOTE | 2019-12-31 01:25 | NUR ---
ASSUMED PT CARE AT 1900. PT IS A&OX4, PLEASANT WITH STAFF. PRN PAIN AND ANXIETY MEDS GIVEN, PROVIDING RELIEF. ICE PACK APPLIED TO LEFT ARM, SLING IN PLACE. UP TO BSC X1 ASSIST. LEFT ARM EDEMATOUS W/ STRONG PULSES. PLANS TO D/C IN AM. CURRENTLY RESTING IN BED WITH EYES CLOSED.
[2019-12-31 08:20] VITALS: BP 147/80
[2019-12-31] MEDS ORDERED: TYLENOL325 MG PO (08:30)
[2019-12-31] MEDS ORDERED: PREDNISONE 20 M20 M1 PO (08:30)
[2019-12-31] MEDS ORDERED: LIDOPATCH1 EACH TRANSDERM (08:30)
[2019-12-31] MEDS ORDERED: HYDROCODON-ACE1 EAC7 PO (08:31)
[2019-12-31 09:48] VITALS: BP 127/73
--- NOTE | 2019-12-31 11:03 | PLAN ---
[facility] [place] [address] REHAB UNIT PLAN OF CARE Name: KATIE DUCKWORTH Room #: 515-P ADM IN M.R.#: [id number] Admission: 12/18/19 Attend Phys: Michael Orellana MD Discharge: Date of : 53 Report #: [id number] THIS REPORT FOR: //name// CC: Michael Carey DATE OF SERVICE: 12/21/2019 PROGRESS NOTE AND OVERALL PLAN OF CARE SUBJECTIVE: The patient was seen back today in followup. She is pleasant, alert. I reviewed her shoulder x-rays with her and what Orthopedics had recommended. Her vitals are stable. She is continuing to work in therapies. She is min assist with upper body dressing. She has been max assist with lower body dressing. In physical therapy, transfers have been mod assist with gait, mod assist 3 feet with a quad cane. She is nonweightbearing on that left upper extremity. She also has speech therapy involved and is noted to have moderate memory deficits. She has moderate cognitive deficits. ASSESSMENT: A 64-year-old white female with the following problem list: 1. Medical complexity with generalized debilitation. 2. Left shoulder comminuted fracture/dislocation. Following conservatively as per Orthopedics, using sling, nonweightbearing status, will need to follow up as an outpatient. 3. Acute on chronic respiratory failure. 4. Acute exacerbation of chronic obstructive pulmonary disease. 5. Rheumatoid arthritis, on chronic steroids. 6. Acute blood loss anemia, status post transfusion. PLAN: The overall plan of care is based on the preadmission screen, post-admission physician evaluation and information garnered from therapy assessments. 1. Estimated length of stay is probably at least 10 days to 2 weeks and likely longer if warranted. 2. Medical prognosis is reasonably good. 3. Anticipated interventions includes the interdisciplinary acute inpatient rehabilitation program. 4. Anticipated functional outcomes would be for the patient to improve as far as mobility, transfers, ADLs as well as cognition, so that she can return back to the home setting. 5. Discharge destination would be back home alone. We will need to get some additional assistance in there and will need to further discuss as a rehabilitation team depending upon how she progresses. 6. Expected therapy by discipline includes PT, OT and speech 1 hour per day [address] [address] REHAB UNIT PLAN OF CARE Name: KATIE DUCKWORTH Room #: 515-P [facility] IN [facility].#: [id number] Admission: 12/18/19 Attend Phys: Michael Orellana MD Discharge: Date of : 53 Report #: [id number] each five days a week throughout the duration of the acute inpatient rehabilitation stay. <ELECTRONICALLY SIGNED> By: Michael Orellana MD 12/31/19 1103 1255 1724 Michael Orellana MD /nt
--- NOTE | 2019-12-31 11:03 | H ---
[facility] [place] [address] HISTORY AND PHYSICAL Name: KATIE DUCKWORTH Room #: 515-P ADM IN M.R.#: [id number] Admission: 12/18/19 Attend Phys: Michael Orellana MD Discharge: Date of : 53 Report #: [id number] THIS REPORT FOR: cc: Matt Carey MD,Matt Orellana,Michael Pineda MD ~ CC: Michael Carey DATE OF SERVICE: 12/18/2019 HISTORY AND PHYSICAL/POSTADMISSION PHYSICIAN EVALUATION HISTORY OF PRESENT ILLNESS: The patient is a 64-year-old white female who was originally admitted to [facility] on 12/14/2019 with increased shortness of breath. She was found to have acute blood loss anemia, hemoglobin of 6.1. Required 2 units packed red blood cells. She was seen by Pulmonary Medicine as well, was noted to have acute exacerbation of chronic obstructive pulmonary disease, acute on chronic respiratory failure. She was COVID-19 negative. 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 She had a fall out of a chair, hitting the left side of the body, acute on chronic pain reported in the left shoulder and hip. Humerus film revealed a left comminuted fracture with dislocation, left shoulder. Right knee x-ray showed no acute process. There is a question of left shoulder comminuted fracture/dislocation. It was felt that she was medically stabilized to admit to the acute inpatient rehab lobo and she has been admitted for inpatient rehabilitation. PAST MEDICAL HISTORY: Her prior medical history includes the above noted rheumatoid arthritis, history of heart disease, hypertension, COPD, vascular disease. FAMILY HISTORY: No pertinent family history. HABITS: No history of alcohol or drug abuse. MEDICATIONS: Please see the full medication listing. ALLERGIES: PROPOXYPHENE, ASPIRIN AND BAND-AIDS ARE NOTED. SOCIAL HISTORY: Premorbidly living at home alone, has 2 steps in and then all on one level (ranch house). She is used to front-wheeled walker or a quad cane, distance limited by her chronic knee pain. She was independent with ADLs and had some friend assist with IADLs. REVIEW OF SYSTEMS: No current complaints of chest pain, shortness of breath or [facility] [address] [place] [address] HISTORY AND PHYSICAL Name: KATIE DUCKWORTH Room #: [address] [place] [address] IN [facility].#: [id number] Admission: 12/18/19 Attend Phys: Michael Orellana MD Discharge: Date of : 53 Report #: [id number] abdominal discomfort. She has chronic rheumatoid arthritic pain. She notes she has had chronic crepitus of her multiple joints. PHYSICAL EXAMINATION: GENERAL: She is a small statured, thin, rather cachectic 64-year-old white female who appeared older than stated age. VITAL SIGNS: Temperature 98.1, pulse 91, respirations 20, blood pressure 132/77. She is on nasal prong O2, 2 liters. HEENT: Facies appeared symmetric. CHEST: Some decreased breath sounds throughout. CARDIOVASCULAR: Sounded regular rate and rhythm. ABDOMEN: Bowel sounds positive, nontender. EXTREMITIES: She does have some bruising over her anterior shoulder and with the posterior shoulder and chest wall area. She has functional range of motion with decrease at end range of that right shoulder and has chronic arthritic changes with her rheumatoid arthritis, multi-joint, I did not range the left shoulder. She does have some swelling with edema of that left hand distally 1+. She is able to move the wrist and fingers. She does have the chronic arthritic changes. In her lower extremities, no focal calf swelling, functional range of motion with some decrease at end range. Strength is probably a grade 4-/5. Premorbidly, had been taking about 5 steps in therapy. She was min assist sit to stand, mod assist to take a few steps prior to coming to rehabilitation. ASSESSMENT: A 64-year-old female with the following problem list: 1. Medical complexity with generalized debilitation. 2. Acute on chronic respiratory failure. 3. Questionable left shoulder comminuted fracture/dislocation. CT scan was ordered by Ortho. Apparently taking a nonsurgical approach, but will need to see what Orthopedics says. 4. Acute exacerbation of chronic obstructive pulmonary disease. 5. Rheumatoid arthritis, on chronic steroids. 6. Acute blood loss anemia, status post transfusion. PLAN: The patient has been admitted for acute in-hospital inpatient rehabilitation. From a postadmission physician evaluation perspective, there are no relevant changes since the preadmission screening. Please see the above review of prior and current medical and functional conditions and comorbidities. I do not see that there are any relevant changes unless Orthopedics has a different plan then outlined above. We will need to see what the recommendations are post-reviewing the CT scan. Please see the patient's previous and current functional status. As far as risk of complication, she does have the multiple medical comorbidities as noted above. Initial plan of care involves the interdisciplinary acute inpatient rehabilitation program. Measurable functional goals would be for the patient to become modified independent with transfers, mobility, ADLs to hopefully return [facility] [address] [place] [address] HISTORY AND PHYSICAL Name: KATIE DUCKWORTH Room #: 515-P ADM IN M.R.#: [id number] Admission: 12/18/19 Attend Phys: Michael Orellana MD Discharge: Date of : 53 Report #: [id number] back to her prior living situation. Prognosis is reasonably good with estimated length of stay probably at least 2 weeks. Potential barriers would include her multiple medical comorbidities and decreased functional status. The patient meets diagnostic criteria for an acute in-hospital inpatient rehabilitation stay. She meets the medical necessity criteria. She does have the tolerance for therapies and she has the appropriate discharge goals back to the home setting. As far as the medical necessity, we will have the microsoft dynamics consultant physicians continue to follow regarding her multiple comorbidities. <ELECTRONICALLY SIGNED> By: Michael Orellana MD 12/31/19 1103 [id number] 0919 Michael Orellana MD /[facility]
--- NOTE | 2019-12-31 14:37 | NUR ---
PT DISCHARGING TODAY TO [facility] FAXED DC ORDERS/SUMMARY TO FACILITY SPOKE YVROSE YU IN ADM SHE RECEIVED ORDERS AND ARRANGED TRANSPORT BY [facility] FOR [id number]. TRIED CALL PT IN ROOM BUT NO ANSWER SPOKE WITH FILIPE ON 5N SHE WILL LET PT AND NURSE KNOW TIME OF TRANSPORT. CHART COPY PER US. RN TO CALL REPORT TO [phone].
--- NOTE | 2019-12-31 16:00 | NUR ---
PT ASSESSED AT START OF SHIFT. DOING FAIRLY WELL W/ THERAPY AND USING LT ARM SLING. USING LIDOCAINE PATCH AND NOT REQUESTED PAIN MEDS ALL SHIFT. NEEDED TO DO PURSED-LIP BREATHING THIS AFTERNOON AFTER COUGHING FIT WHEN EATING BUT RECOVERED WELL. DISCHARGED AT THIS TIME PER W/C TO THE [facility].
== END 2019-12-31 16:00 | DRG 947 ==
PROVIDERS: Internal Medicine; Nurse Practitioner; Nurse Practitioner Family; ADMIT Physical Medicine & Rehabilitation; ATTEND Physical Medicine & Rehabilitation
DX: R53.81 Other malaise (principal); J96.21 Acute and chronic respiratory failure with hypoxia; S42.92XA Fracture of left shoulder girdle, part unspecified, initial encounter for closed fracture; D62 Acute posthemorrhagic anemia; J44.1 Chronic obstructive pulmonary disease with (acute) exacerbation; E87.0 Hyperosmolality and hypernatremia; N17.9 Acute kidney failure, unspecified; E46 Unspecified protein-calorie malnutrition; E44.0 Moderate protein-calorie malnutrition; M06.9 Rheumatoid arthritis, unspecified; E03.9 Hypothyroidism, unspecified; F32.9 Major depressive disorder, single episode, unspecified; N18.3 Chronic kidney disease, stage 3 (moderate); I12.9 Hypertensive chronic kidney disease with stage 1 through stage 4 chronic kidney disease, or unspecified chronic kidney disease; E87.6 Hypokalemia; Z66 Do not resuscitate; Z87.891 Personal history of nicotine dependence; Z88.8 Allergy status to other drugs, medicaments and biological substances; Z20.828 Contact with and (suspected) exposure to other viral communicable diseases; G31.84 Mild cognitive impairment of uncertain or unknown etiology; F41.8 Other specified anxiety disorders; M48.00 Spinal stenosis, site unspecified; M41.9 Scoliosis, unspecified; E83.42 Hypomagnesemia; K52.89 Other specified noninfective gastroenteritis and colitis; S20.219A Contusion of unspecified front wall of thorax, initial encounter; W18.39XA Other fall on same level, initial encounter; Y93.89 Activity, other specified; Y92.89 Other specified places as the place of occurrence of the external cause; Y99.8 Other external cause status; Z68.20 Body mass index [BMI] 20.0-20.9, adult; Z79.52 Long term (current) use of systemic steroids
CPT/HCPCS: 10112

== ENCOUNTER 2020-07-20 15:37 | Inpatient (IN) | payer OTHER, MEDICARE ==
[~2020-07-20] VITALS: Ht 147.3 cm; Wt 41.4 kg
--- NOTE | ~2020-07-20 | EMS ---
[address] [address] EMS Patient Care Report Name: KATIE DUCKWORTH Room #: 455-P ADM IN M.R.#: [id number] Admission: 07/20/20 Attend Phys: Matt Carey MD Discharge: Date of : 53 Report #: [id number] THIS REPORT FOR: //name// Report Transmitted: 07/21/2020 12:59 EMS Care Summary [facility] Incident [id number] @ 07/20/2020 14:48 Incident Location [address] [place] [address] Patient KATIE DUCKWORTH Female, 64 Years 1955 Patient Address [address] [place] [address] Patient History Chronic Obstructive Pulmonary Disease (COPD),Arthritis,Rheumatoid Arthritis, Patient Allergies No known allergies, Patient Medications Tylenol, Diltiazem, Levothyroxine, Amitriptyline, Furosemide, Metoprolol, Alprazolam, Chief Complaint WEAKNESS Disposition Transported No Lights/[place] Dispatch Reason Breathing Problem Transported To [facility] Narrative UPON OUR ARRIVAL THE PT WAS FOUND SEATED UPRIGHT ON HER BED, THE PT WAS ALERT AND ORIENTED TO OUR PRESENCE. THE PT STATED THAT SHE WASNT NECESSARILY SHORT OF BREATH, HOWEVER SHE WAS AFRAID SHE FALLING. THE PT STATED THAT WHEN SHE SAT [address] [address] EMS Patient Care Report Name: KATIE DUCKWORTH Room #: 455-P ADM IN .R.#: [id number] Admission: 07/20/20 Attend Phys: Matt Carey MD Discharge: Date of : 53 Report #: [id number] UPRIGHT SHE GOT "WINDED". WE OBTAINED VITALS, THE PT'S LUNG SOUNDS WERE CLEAR AND EQUAL IN DIAL. WE PLACED THE PT ONTO THE DESIZING MACHINE OPERATOR HEAD END TO OBTAIN A 12-LEAD, HOWEVER THE 12-LEAD WAS NO DIAGNOSTIC. THE PT HAD NO COMPLAINTS OF CHEST PAIN, NO COMPLAINTS OF NAUSEA OR VOMITING. THE PT HAD A GCS OF 15 AND WAS MOVED TO THE COT USING A [place] CARRY AND THEN PLACED ONTO THE COT AND PROPERLY SECURED USING THE STRAPS ON THE COT PRIOR TO BEING MOVED TO THE AMBULANCE. THE PT WAS PLACED ON OUR OXYGEN AT THIS TIME VIA HER NASAL CANNULA AND PLACED ON 3 LPM. ONCE ON THE AMBULANCE WE ATTEMPTED TO GET A BETTER 12-LEAD AND TRIED MOVING THE LEADS AND PREPPING THE SKIN HOWEVER WAS STILL UNABLE TO GET A DIAGNOSTIC QUALITY EKG. I OBTAINED VASCULAR ACCESS IN THE PT'S LEFT WRIST USING AN 18 GAUGE IV CATHETER. THE IV SITE WAS FLUSHED, PATENT, AND SECURED USING A SALINE LOCK. DUE TO THE PT'S BP I GAVE A 200 ML FLUID BOLUS AND REASSESSED. THE PT'S BP HAD INCREASED FROM 90/50'S TO 130/80'S. THE FLUID WAS TURNED OFF AND LUNG SOUNDS WERE REASSESSED. THE PT STILL HAD CLEAR AND EQUAL SOUNDS IN ALL DIAL AT THIS TIME. A DETAILED PHYSICAL EXAM YIELDED NO SIGNIFICANT FINDINGS. THE PT WAS CONTINUOUSLY MONITORED DURING TRANSPORT AND I OBTAINED A SECOND SET OF VITALS PRIOR TO OUR ARRIVAL AT THE HOSPITAL. AT THE HOSPITAL THE PT WAS MOVED INDOORS VIA THE COT AND THEN TRANSFERRED TO HER BED USING THE SHEETS ON THE COT. PT REPORT WAS GIVEN TO THE RN IN THE ROOM AND PT CARE WAS TRANSFFERED WITH NO SIGNIFICANT CHANGES IN THE PT'S STATUS OR CONDITION. Initial Vitals @15:04 @15:01P: 52,R: 20,BP: 90/64,Pain: 0/10,GCS: 15,Glucose: 136,SpO2: 95,Revised Trauma: 12, @15:30P: 84,R: 18,BP: 132/42,Pain: 0/10,GCS: 15,SpO2: 95,Revised Trauma: 12, Assessments @15:01MENTAL:Person Oriented,Time Oriented,Event Oriented,Place Oriented,SKIN:HEENT:Eyes: Left Pupil: 4-mm,Eyes: Right Pupil: 4-mm,Head/Face: No Abnormalities,Neck/Airway: No Abnormalities,LUNG SOUNDS:General: No Abnormalities,ABDOMEN:General: No Abnormalities,PELVIS//GI:No Abnormalities,EXTREMITIES:Right Leg: Other,Left Arm: No Abnormalities,Right Arm: No Abnormalities,Left Leg: No Abnormalities,PULSE:Radial: 2+ Normal,NEURO: Impression Acute Respiratory Distress (Dyspnea) Procedures @15:0412-Lead ECGResponse: UnchangedFailed@15:01Oxygen FlowRate: 3 Device: Nasal Cannula (NC) Response: UnchangedSucceeded@15:053-Lead ECGResponse: UnchangedSucceeded@15:01ALS AssessmentResponse: UnchangedSucceeded@15:15Normal [address] [address] EMS Patient Care Report Name: KATIE DUCKWORTH Room #: 455-P [facility] IN M.R.#: [id number] Admission: 07/20/20 Attend Phys: Matt Carey MD Discharge: Date of : 53 Report #: [id number] Saline (.9% NaCl) 200cc (18 ga) Site: Hand-LeftResponse: UnchangedSucceeded Timeline 14:47,Call Received 14:47,Psap Call 14:48,Dispatched 14:52,En Route 14:55,Initial Responder On Scene 14:55,On Scene 14:58,At Patient 15:01,ALS Assessment,Response: UnchangedSucceeded, 15:01,Oxygen FlowRate: 3 Device: Nasal Cannula (NC) Response: UnchangedSucceeded, 15:01,BP: 90/64 M,PULSE: 52,RR: 20 R,SPO2: 95 Ox,ETCO2: ,B,PAIN: 0,GCS: 15, 15:04,12-Lead ECG,Response: UnchangedFailed, 15:04,BP: / M,PULSE: ,RR: R,SPO2: Ox,ETCO2: ,BG: ,PAIN: ,GCS: , 15:05,3-Lead ECG,Response: UnchangedSucceeded, 15:15,Normal Saline (.9% NaCl) 200cc 18 ga Site: Hand-Left,Response: UnchangedSucceeded, 15:17,Depart Scene 15:30,BP: 132/42 M,PULSE: 84,RR: 18 R,SPO2: 95 Ox,ETCO2: ,BG: ,PAIN: 0,GCS: 15, 15:33,At Destination 15:56,Call Closed Disclaimer v1.1 Copyright 2020 [employer] This EMS Care Summary contains data elements from the applicable legal record (which may be displayed differently). It is designed to provide pertinent information for the following purposes: continuity of care, clinical quality, and state data reporting. The complete legal record is available to ED staff and administrators of the receiving hospital in [facility]'s Patient Tracker. All data is provided "as is."
[~2020-07-20 15:37] MED LIST changes: +HYDROCODON-ACE1 EAC7 PO; +LIDOPATCH1 EACH TRANSDERM; +TYLENOL325 MG PO
[2020-07-20 15:44] VITALS: BP 128/61
[2020-07-20 16:46] LABS: ANION GAP 12 mmol/L (7-16); BUN 35 mg/dL (7-18); CALCIUM 9.2 mg/dL (8.5-10.1); CHLORIDE 103 mmol/L (98-107); CO2 23 mmol/L (21-32); CREATININE 1.3 mg/dL (0.6-1.0); GLUCOSE 120 mg/dL (74-106); SODIUM 138 mmol/L (136-145)
[2020-07-20 16:50] LABS: BE(vivo) -1.8 mmol/L (-2 to +3); HCO3 24.1 mmol/L (22.0-26.0); PCO2 46.9 mmHg (35.0-45.0); pH 7.328 (7.360-7.450); sO2 96.3 % (92.0-98.0)
[2020-07-20 16:57] LABS: ALBUMIN 2.5 g/dL (3.4-5.0); AMYLASE 296 U/L (25-115); DIRECT BILIRUBIN < 0.1 mg/dL (<0.1-0.2); LIPASE 1912 U/L (73-393); SGOT 15 U/L (15-37); SGPT 8 U/L (14-59); TOTAL BILIRUBIN 0.2 mg/dL (0.2-1.0); TOTAL PROTEIN 6.2 g/dL (6.4-8.2); TROPONIN-I 0.07 ng/mL (<0.06)
[2020-07-20 17:04] LABS: HEMATOCRIT 22.8 % (37.0-47.0); HEMOGLOBIN 6.7 gm/dL (12.0-15.0); MCH 25.5 pg (26.0-34.0); MCHC 29.2 g/dL (28.0-37.0); MCV 87.3 fL (80.0-100.0); PLATELET COUNT 647 thou/uL (150-400); RBC 2.61 mil/uL (4.20-5.00); RDW 21.3 % (10.5-14.5); WBC 27.1 thou/uL (4.0-11.0)
[2020-07-20 17:31] LABS: ABSOLUTE NEUTROPHILS 24.1 thou/uL (1.4-8.2); MYELOCYTES 3 %; NUCLEATED RBCS 1 /100WBC
[2020-07-20 17:32] LABS: POLYCHROMASIA 2+; TARGET CELLS FEW
[2020-07-20 17:33] LABS: TEARDROPS FEW
[2020-07-20 17:35] LABS: SCHISTOCYTES FEW
[2020-07-20 18:06] VITALS: BP 111/60
[2020-07-20 18:31] VITALS: BP 128/60
[2020-07-21 00:06] VITALS: BP 119/54
[2020-07-21 00:19] VITALS: BP 121/44; BP 121/51
[2020-07-21 04:05] VITALS: BP 121/44
--- NOTE | 2020-07-21 07:29 | NUR ---
PT ARRIVED FROM ER VIA CART, PLACED IN ROOM 356. ADMISSION ASSESSMENTS COMPLETED. PT HAD TWO LIDOCAINE PATCHES ON HER RIGHT THIGH WHICH WERE REMOVED. ON O2 AT 2L PER NC WITH O2 SATS 100%. REPORT TO DAY RN TO WEAN OFF OXYGEN IF POSSIBLE. REPORTED ROOM AIR SAT WAS 95% PER RN THAT TOOK ER REPORT. X1 UNIT OF BLOOD GIVEN PER ORDERS, NO SUSPECTED TRANSFUSION REACTIONS AND NO COMPLAINTS VOICED BY PATIENT. LUNGS WITH NOTABLE WHEEZES.
--- NOTE | 2020-07-21 07:39 | EKG ---
[address] [place] [address] ELECTROCARDIOGRAM REPORT Name: KATIE DUCKWORTH Room #: 356-P ADM IN M.R.#: [id number] Admission: 07/20/20 Attend Phys: Matt Carey MD Discharge: Date of : 53 Report #: [id number] [facility] ED Test Date: 2020-07-20 Test Time: 16:10:46 Pat Name: KATIE DUCKWORTH Department: Room: 356 Gender: F [employer] Driver: ROSA MARIA : 1955 Requested By: Richard Argueta Order Number: [id number] MD: Mayito Keller Measurements Intervals Gordon Rate: 92 P: 69 NM: 166 QRS: 111 QRSD: 141 T: 99 QT: 395 QTc: 489 Interpretive Statements Sinus rhythm Right atrial enlargement RBBB and LPFB Compared to ECG 12/14/2019 17:35:33 Atrial abnormality now present Left posterior fascicular block now present Sinus tachycardia no longer present T-wave abnormality no longer present Electronically Signed On 07-21-2020 7:39:10 POSTAL SERVICE WINDOW CLERK by Mayito Keller [email or web address] <ELECTRONICALLY SIGNED> By: Mayito eKller MD, FACC 07/21/20 0739 1610 1610 Mayito Keller MD, [facility] /EPI
[2020-07-21 08:39] VITALS: BP 130/62
[2020-07-21 08:57] LABS: HEMATOCRIT 28.5 % (37.0-47.0); HEMOGLOBIN 8.5 gm/dL (12.0-15.0); MCH 26.1 pg (26.0-34.0); RBC 3.28 mil/uL (4.20-5.00); RDW 18.1 % (10.5-14.5)
--- NOTE | 2020-07-21 15:32 | NUR ---
ASSUMED PATIENT CARE AT 0700. A/O X4. GENERLIZED WEAKNESS. TOLERATED 2L/NC. NO NAUSEA, NO VOMIT. TRANSFER PATIENT TO [facility] AT 1400.
--- NOTE | 2020-07-21 15:53 | NUR ---
PT ADMITTED RELATED TO COPD EXACERBATION. CM REVIEWED CHART AND SPOKE WITH CARE TEAM. CM MET WITH PT AT BEDSIDE THIS DAY. PT APPEARED TO BE A&O X4. CM ROLE INTRODUCED. PT INDICATED SHE LIVES ALONE IN A HOUSE WITH 1 STEP TO ETNER AND NO STEPS INSIDDE. PT INDICATED SHE HAS A FWW, HOME O2 THROUGH [employer] , AND A NEW SHOWER CHAIR AND NEBULIZER. 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 SHE THINKS THEY COME 7 DAYS A WEEK FOR 2-3 HOURS PER DAY. CM ASKED IF PT HAD MEDICAID AND IF THEY ARE A HCBS PROVIDER PT DOENS'T THINK SHE HAS MEDICAID. CM ATTEMTPED PC TO [employer] OUT OF [place] CM DIDN'T LEAVE . CM TO ATTEMPT FOLLOW UP PC TOMORROW. PT INDICATED SHE PLANS TO RETURN HOME WITH [employer] ONCE MEDICALLY STABLE. CM TO FOLLOW INDICATED WITH DC PLANNING.
--- NOTE | 2020-07-21 18:14 | NUR ---
PT ARRIVED FROM 3W AROUND 1430. ALERT X ORIENTED X 4.ON 2L/O2/NC.IV RT FA AND LF FA/NS/80ML/HR. REGULAR DIET. EATING AND DRINKING WELL. ACCUCHECK AND ACHS.2BM AFTER COMING TO THE FLOOR. TELE PT. ONE PERSON ASST. FALL PRECATION IN PLACE. WILL CONTINUE TO MONITOR.
[2020-07-21 19:51] VITALS: BP 117/68
--- NOTE | 2020-07-22 06:37 | NUR ---
ASSUMED CARE OF PT AT SHIFT CHANGE. PT IS AOX4 AND LETS NEEDS BE KNOWN. FALL PRECAUTION IN PLACE. PT REPORTED SOME PAIN AND WAS TREATED WITH PRN PAIN MEDS. O2 CONTINUED AT 2L VIA NC. ASSESSMENT CHARTED. PT RAN SR ON TELE. PT WAS ABLE TO GET COMFORTABLE AND SLEEP PART OF THE SHIFT. VSS AND NO S/S OF ACUTE DISTRESS. WILL CONTINUE TO MONITOR.
[2020-07-22 08:00] VITALS: BP 129/72
[2020-07-22 08:21] LABS: % SATURATION 18 % (20-39); IRON 39 ug/dL (50-170); TIBC 213 ug/dL (250-450)
--- NOTE | 2020-07-22 12:22 | NUR ---
CM CALLED [employer] THIS DAY AND THEY ARE A MEDICAID HCBS PROVIDER. PT HAS PERSONAL CARE AND HOMEMAKER SERVICES THROUGH THEM. THEY INDICATED THAT IF PT NEEDS HH UPON DC WOULD NEED REFERRAL SENT ELSEWHERE FOR THOSE SERVICES. CM TO FOLLOW INDICATED WITH DC PLANNING. PT ON IV ABX, STEROIDS, AND GI CONSULTED. CM TO FOLLOW INDICATED WITH DC PLANNING.
--- NOTE | 2020-07-22 12:31 | NUR ---
ASSUMED PT CARE AROUND 0730. PT ALERT X ORIENTED X 4. ON 2L/O2/NC. 1 X PERSON ASSIST TO BEDSIDE COMMODE.IV RT HAND (SALINE LOCKED) AND LF FA WITH NS/80ML/HR.HAD A BM TODAY. EATING AND DRINK WELL. ASSESMENTS DONE. ON REGULAR DIET. LIKE TO TAKE PILLS WHOLE WITH APPLE SAUCE. ACCUCHECK, ACHS. PAIN ON LOWER BACK NOTED WITH PAIN SCALE OF 5-6. FALL PRECAUTION IN PLACE. WILL CALL APPROPRIATELY. CALL LIGHT WITHIN REACH. WILL CONTINUE TO MONITOR. PT SAID HER FRIENDS AND COUSINS KNOW WHERE SHE IS AND SHE IS UPDATING EVERYTHING WITH THEM.
[2020-07-22 16:00] VITALS: BP 111/60
[2020-07-22 19:14] VITALS: BP 134/68
--- NOTE | 2020-07-23 02:00 | NUR ---
ASSUMED CARE OF PT AT SHIFT CHANGE. PT IS AOX4 AND LETS NEEDS BE KNOWN. FALL PRECAUTION IN PLACE. O2 CONTINUED VIA NC AT 2L. PT REPORTED PAIN AND WAS TREATED WITH PRN PAIN MEDS. ASSESSMENT CHARTED. PT RAN SR ON TELE. NO MORE SVT EPISODES NOTED. PT WAS ABLE TO GET COMFORTABLE AND SLEEP PART OF THE SHIFT. VSS AND NO S/S OF ACUTE DISTRESS. WILL CONTINUE TO MONITOR FOR CHANGES.
[2020-07-23] MEDS ORDERED: ARTIFICIAL TEAR15 M4 (05:58)
[2020-07-23] MEDS ORDERED: LATANOPROST 0.2.5 ML OPHTHALMIC (06:00)
[2020-07-23] MEDS ORDERED: ARTIFICIAL TEA1 EACH OPHTHALMIC (06:01)
--- NOTE | 2020-07-23 14:14 | NUR ---
PT CONTINUES ON IV CEFTRIAXONE AND LASIX. GI INDICATED THAT PT MIGHT HAVE AN EGD WHILE INPATIENT RELATED TO DECREASE IN HGB. PT TO HAVE OP EUS. CM TO FOLLOW INDICATED WITH DC PLANNING.
--- NOTE | 2020-07-23 17:56 | NUR ---
Assumed pt care at 7am.Pt in bed with o2 at 2lnc.Pt in and out of bed with assist.Early this am,OT came to evaluate pt,while getting pt up from bed,pt was very upset and said she doesn't want to get out of bed at this time.Pt was very mean and hostile.Pt later apologized. Small loose brown stool noted on the bed. [employer]an Manufacturing Specialist bathe pt and complete bed change ortiz.Am meds given and well tolerated.Assessment completed.vss.Blood sugar less than 150 all day and no insulin needed.Dr Carey and Ruben here,order noted.Pt will be having EGD in am.Later this evening,pt requested for home eye gtt.Dr Carey called but was told that he left for home on every tuesday at noon.Message left and pt notified.Total bm today was approx.5times.Will continue to monitor.
[2020-07-23 20:04] VITALS: BP 130/60
--- NOTE | 2020-07-24 03:12 | NUR ---
PT CARE ASSUMED WITH PT IN BED WATCHING TV.PT IS A/O X4.PT IS UP WITH X1 ASSIST TO BSC OR USES BEDPAN.PT IS ON 2L OF O2 VIA NC.PT IS TO HAVE EGD AND WAS NPO FROM MIDNIGHT .PT IS ON TELE WITH NSR/ST.PT IS ACCUCHECK ACHS WITH NO SSI.IV ACCESS ON RT HAND WITH NS AT 80CC/HR.PT C/O PAIN AND PAIN MANAGED WITH NORCO.WILL CONTINUE TO MONITOR PER POC
[2020-07-24 07:49] VITALS: BP 122/58
[2020-07-24 10:27] VITALS: BP 139/63
[2020-07-24 11:14] VITALS: BP 120/56; BP 132/65
--- NOTE | 2020-07-24 12:04 | NUR ---
CARE TEAM INDICATED THAT PT IS GETTING BLOOD THIS DAY. SHE CONTINUES ON IV ABX AND IS GETTING IV VENOFER. PT TO HAVE AN EGD THIS DAY. CARE TEAM INDICATING THAT PT WOULD BENEFIT FROM SHORT TERM SKILLED POST ACUTE CARE STAY. CM MET WITH PT AT BEDSIDE THIS DAY. PT INDICATED SHE HAD BEEN TO [facility] IN PAST AND WOULDN'T RETURN THERE. PT ASKED THAT REFERRAL BE SENT TO [facility] FOR REVIEW FOR POSSIBLE ADMISSION. REFERRAL SENT. CM FOLLOWING REGARDING DC PLANNING.
--- NOTE | 2020-07-24 12:32 | NUR ---
FAXED REFERRAL TO [facility] RECEIVED CONFIRMATION AND SPOKE WITH ARTI IN ADM SHE WILL REVIEW.
[2020-07-24 13:54] VITALS: BP 120/56
--- NOTE | 2020-07-24 14:46 | NUR ---
PT A&OX4, VSS, DENIES PAIN. 1 UNIT OF BLOOD TRANSFUSED. EDG RESCHEDULED FOR TOMORROW, DIET RESTARTED. NO DIARRHEA TODAY. IV PATENT IN RIGHT HAND. PATIENT ON 2L OXYGEN. NO SIGNS OF DISTRESS. WILL CONTINUE TO MONITOR.
[2020-07-24 19:21] VITALS: BP 123/57
--- NOTE | 2020-07-25 02:33 | NUR ---
PT CARE ASSUMED WITH PT IN BED WATCHING TV .PT IS A/O X4.PT IS UP WITH X1 ASSIST TO BSC AND ALSO USES BEDPAN.PT C/O PAIN AND HAS PRN NORCO FOR PAIN MANAGEMENT AND XANAX FOR ANXIETY.PT IS ON 2L OF O2 VIA NC.PT NPO FROM MIDNIGHT FOR EGD TODAY.IV ACCESS ON RT HAND WITH NS AT 80CC/HR.PT IS ACCUCHECK ACHS WITH LOW SSI.WILL CONTINUE TO MONITOR
[2020-07-25 07:50] VITALS: BP 139/67
[2020-07-25] MEDS ORDERED: CEFDINIR300 MG PO (10:40)
--- NOTE | 2020-07-25 12:17 | NUR ---
PT HAVING EGD THIS DAY. DR. BROOKS INDICATED PT WILL LIKELY BE MEDICALLY STABLE TO DC TO [facility] TOMORROW. [facility]AN TRANSPORT HAD BEEN ARRANGED FOR 1400 WITH 2L O2. CHART COPY MADE. ORDERS WILL NEED TO BE FAXED TO . REPORT TO BE CALLED TO . PT IS AWARE AND AGREEABLE.
--- NOTE | 2020-07-25 12:34 | NUR ---
PATIENT DOWN FOR EGD APPROX 1100. PATIENT HELD IN PRE-OP D/T BEING GIVEN APPLESAUCE. PT A&OX4, VSS, DENIES PAIN. PATIENT WORKED WITH PT TODAY. PATIENT REMAINS ON 2L O2. IV R HAND PATENT AND FLUIDS RUNNING. PATIENT HGB 8.8 TODAY AFTER BEING GIVEN 1 UNIT OF BLOOD 07/24. PATIENT 1 ASSIST TO BEDSIDE COMMODE. NO SIGNS OF DISTRESS. WILL CONTINUE TO MONITOR.
[2020-07-25 15:33] VITALS: BP 133/39
[2020-07-25 19:50] VITALS: BP 150/66
--- NOTE | 2020-07-26 05:01 | NUR ---
Pt. rested quietly during the night when checked on during frequent rounds. She c/o right shoulder pain and po pain meds given (see emar) with some relief noted. Up to the bedside comode with assistance of one. Bed alarm is on.
[2020-07-26 08:09] VITALS: BP 160/84
[2020-07-26 08:43] VITALS: BP 160/84
[2020-07-26] MEDS ORDERED: NYSTATIN100000 UNI SW&SWALLOW (08:52)
--- NOTE | 2020-07-26 14:02 | NUR ---
Assumed pt care this am. Pt is alert @ oriented x4. Medication well tolerated. Pt is accucheck achs and has L shoulder pain. Inform Sumi Ahmadi ( Friend) that pt will be transfer to the facility. Given report to the nurse in [facility] fernando @[phone].
--- NOTE | 2020-07-29 18:06 | PATH ---
[facility] [place] [address] PATHOLOGY RPT PROCEDURE Name: KATIE DUCKWORTH Room #: 455-P DIS IN M.R.#: [id number] Admission: 07/20/20 Date of : 51 Discharge: 07/26/20 Report #: [id number] Path Case #: [id number] LCA Accession Number: [id number] . 01 Material submitted: . PART A: stomach - BIOPSY ANTRUM PART B: esophagus - BIOPSY ESOPHAGEAL . 01 Clinical history: . COPD EXACERBATION PRE-OP DIAGNOSIS ANEMIA, NSA POST-OP DIAGNOSIS DUODENAL ULCERS, GASTRITIS A: R/O H PYLORI B: R/O JACKELIN . 02 Diagnosis: A. Gastric mucosa, antrum, rule out H. pylori, endoscopic biopsy: - Mild chronic gastritis. - Negative for intestinal metaplasia or atrophy. - Negative for Helicobacter pylori (properly controlled immunohistochemical stain performed). . B. Gastroesophageal mucosa, esophageal, rule out Jackelin, endoscopic biopsy: - Few detached fungal yeast and hyphal elements present associated with detached squamous epithelial cells. - Intact squamous epithelium showing mild esophagitis. - S fungal special stain pending, to be reported as an addendum. - Focal gastric cardia-type mucosa with no diagnostic abnormalities. - Negative for intestinal metaplasia or dysplasia. (IUV:pit 07/28/2020) QTP 07/28/2020 1258 Local . 02 Addendum: . This addendum is issued subsequent to reviewing a properly-controlled GMS fungal special stain performed on block B1. It shows no definite hyphal elements within the squamous epithelium. Numerous yeast forms are identified within the detached squamous epithelial cells. . (IUV:mml; 07/29/2020) . . Professional services performed by [facility] at [facility], [address] [place] [address] , [place] [address]. [facility] by [facility] at [address] [place] [address], [address], [place] [address]. [facility]/07/29/2020 Addendum Electronically Signed by Gerda Corbin MD, Pathologist [address] [place] [address] PATHOLOGY RPT PROCEDURE Name: KATIE DUCKWORTH Room #: 455-P DIS IN M.R.#: [id number] Admission: 07/20/20 Date of : 51 Discharge: 07/26/20 Report #: [id number] Path Case #: [id number] . 02 Electronically signed: . Gerda Corbin MD, Pathologist NPI- [id number] . 01 Gross description: . A. The specimen is received in formalin, labeled "Katie Humphrey, biopsy antrum". Received is a segment of pale mar tissue measuring 0.7 cm in maximum dimensions. The specimen is submitted entirely in cassette A1. . B. The specimen is received in formalin, labeled "Katie Humphrey, biopsy esophageal". Received are several minute fragments of pale mar tissue measuring 0.3 x 0.2 x 0.1 cm in aggregate dimensions. The specimen is filtered and entirely submitted in cassette B1. (CAA; 07/27/2020) QAC/QAC 07/27/2020 1722 Local . 02 Pathologist provided ICD-10: K29.50, K20.90 . 02 CPT . 133935, 503588, Q15648, 255777 Specimen Comment: A courtesy copy of this report has been sent to [phone] Specimen Comment: Report sent to Performed at: [address], [place] [id number] MD Cal Nagel MD Phone: [phone] Performed at: [address] [id number] MD Gerda Corbin MD Phone: [phone]
== END 2020-07-26 15:03 | DRG 377 ==
LOC: ER 15:37 → 3W 17:09 → 4W 17:09 → EROBS 17:09 → 3W 18:33 → 4W 07-21 13:53
PROVIDERS: Emergency Medicine; ADMIT Family Medicine; ATTEND Family Medicine
DX: K29.71 Gastritis, unspecified, with bleeding (principal); K85.90 Acute pancreatitis without necrosis or infection, unspecified; J96.21 Acute and chronic respiratory failure with hypoxia; D62 Acute posthemorrhagic anemia; B37.81 Candidal esophagitis; J44.1 Chronic obstructive pulmonary disease with (acute) exacerbation; K26.4 Chronic or unspecified duodenal ulcer with hemorrhage; K86.89 Other specified diseases of pancreas; Z20.822 Contact with and (suspected) exposure to COVID-19; N18.30 Chronic kidney disease, stage 3 unspecified; M06.9 Rheumatoid arthritis, unspecified; F32.9 Major depressive disorder, single episode, unspecified; E03.9 Hypothyroidism, unspecified; I12.9 Hypertensive chronic kidney disease with stage 1 through stage 4 chronic kidney disease, or unspecified chronic kidney disease; F41.9 Anxiety disorder, unspecified; R53.81 Other malaise; K44.9 Diaphragmatic hernia without obstruction or gangrene; Z88.6 Allergy status to analgesic agent; Z88.8 Allergy status to other drugs, medicaments and biological substances; Z87.891 Personal history of nicotine dependence; Z79.52 Long term (current) use of systemic steroids; Z86.16 Personal history of COVID-19; Z79.899 Other long term (current) drug therapy
CPT/HCPCS: 10045; 10879; 62110; 62900; 70005

== ENCOUNTER 2020-11-21 03:46 | Inpatient (IN) | payer OTHER, MEDICARE ==
[~2020-11-21] VITALS: Ht 142.2 cm; Wt 27.2 kg
--- NOTE | ~2020-11-21 | EMS ---
[address] [address] EMS Patient Care Report Name: KATIE DUCKWORTH Room #: 353-P [facility] IN M.R.#: [id number] Admission: 11/21/20 Attend Phys: Matt Carey MD Discharge: 11/24/20 Date of : 53 Report #: [id number] THIS REPORT FOR: //name// Report Transmitted: 11/25/2020 14:39 EMS Care Summary [place], [place] Incident [id number] @ 11/21/2020 03:24 Incident [id number] [place] [address] SAMINA CAMARGO Patient KATIE DUCKWORTH Female, 65 Years 1955 Patient Address [address] [place], [place] [id number] Patient History Chronic Obstructive Pulmonary Disease (COPD),Gastro-Esophageal Reflux Disease (GERD),Hypothyroidism, Patient Allergies No known allergies, Chief Complaint N/V Disposition Transported No Lights/[place] Dispatch Reason Breathing Problem Transported To [facility] Narrative pt found seated in wheelchair, a&o, NAD. pt states she has had N/V for past 3 hrs. watery emesis. no abd pain. pt states, "I wonder if i got food poisoning". she req eval at [facility]. pt lifted to cot, tx as listed in flow chart. transport w/o change. pt states Zofran did not help. [address] [address] EMS Patient Care Report Name: KATIE DUCKWORTH Room #: 353-P [facility] IN M.R.#: [id number] Admission: 11/21/20 Attend Phys: Matt Carey MD Discharge: 11/24/20 Date of : 53 Report #: [id number] Initial Vitals @03:36P: 110,R: 20,BP: 145/89,Pain: 0/10,GCS: 15,CO: 10,SpO2: 93,Revised Trauma: 12, Assessments @03:32MENTAL:No Abnormalities,SKIN:No Abnormalities,HEENT:Head/Face: No Abnormalities,LUNG SOUNDS:General: Vomiting,General: Nausea,ABDOMEN:General: Vomiting,General: Nausea,PELVIS//GI:EXTREMITIES:PULSE:Radial: 2+ Normal,NEURO:No Abnormalities, Impression Vomiting Procedures @03:32ALS AssessmentResponse: UnchangedSucceeded@03:36Zofran - 4 Milligrams (mg) - OralResponse: Unchanged@03:33StretcherResponse: Unchanged@03:35Oxygen FlowRate: 2 Device: Nasal Cannula (NC) Response: UnchangedSucceeded Timeline 03:22,Call Received 03:22,Dispatch Notified 03:24,Dispatched 03:25,En Route 03:30,On Scene 03:32,At Patient 03:32,ALS Assessment,Response: UnchangedSucceeded, 03:33,Stretcher,Response: Unchanged 03:35,Oxygen FlowRate: 2 Device: Nasal Cannula (NC) Response: UnchangedSucceeded, 03:36,Zofran - 4 Milligrams (mg) - Oral,Response: Unchanged 03:36,BP: 145/89 M,PULSE: 110,RR: 20 R,SPO2: 93 Ox,ETCO2: ,BG: ,PAIN: 0,GCS: 15, 03:37,Depart Scene 03:43,At Destination 04:00,Call Closed Disclaimer v1.1 Copyright 2020 [employer] This EMS Care Summary contains data elements from the applicable legal record (which may be displayed differently). It is designed to provide pertinent information for the following purposes: continuity of care, clinical quality, and state data reporting. The complete legal record is available to ED staff and administrators of the receiving hospital in [employer] Patient Tracker. All data is provided "as is."
[~2020-11-21 03:46] MED LIST changes: +ARTIFICIAL TEA1 EACH OPHTHALMIC; +ARTIFICIAL TEAR15 M4
[2020-11-21 03:50] VITALS: BP 149/99
[2020-11-21 05:06] LABS: ANION GAP 3 mmol/L (7-16); BUN 25 mg/dL (7-18); CALCIUM 11.4 mg/dL (8.5-10.1); CHLORIDE 95 mmol/L (98-107); CO2 42 mmol/L (21-32); CREATININE 1.4 mg/dL (0.6-1.0); GLUCOSE 160 mg/dL (74-106); POTASSIUM 4.4 mmol/L (3.5-5.1); SODIUM 140 mmol/L (136-145)
[2020-11-21 05:13] LABS: ABSOLUTE NEUTROPHILS 14.6 thou/uL (1.4-8.2); BASOPHILS 0.4 % (0.0-2.0); EOSINOPHILS 1.2 % (0.0-3.0); HEMATOCRIT 50.4 % (37.0-47.0); HEMOGLOBIN 16.3 gm/dL (12.0-15.0); LYMPHOCYTES 3.8 % (24.0-44.0); MCH 29.9 pg (26.0-34.0); MCHC 32.4 g/dL (28.0-37.0); MCV 92.2 fL (80.0-100.0); MONOCYTES 5.6 % (1.0-8.0); PLATELET COUNT 275 thou/uL (150-400); RBC 5.47 mil/uL (4.20-5.00); RDW 15.2 % (10.5-14.5); WBC 16.4 thou/uL (4.0-11.0)
[2020-11-21 05:17] LABS: ALBUMIN 3.5 g/dL (3.4-5.0); LIPASE 632 U/L (73-393); SGOT 16 U/L (15-37); SGPT 14 U/L (14-59); TOTAL BILIRUBIN 0.3 mg/dL (0.2-1.0); TOTAL PROTEIN 8.5 g/dL (6.4-8.2); TROPONIN-I <0.06 ng/mL (<0.06)
[2020-11-21 06:30] LABS: URINE BILIRUBIN NEGATIVE (Negative); URINE BLOOD NEGATIVE (Negative); URINE CLARITY CLEAR; URINE COLOR YELLOW; URINE GLUCOSE-RANDOM* NEGATIVE (Negative); URINE KETONES NEGATIVE (Negative); URINE LEUKOCYTES-REFLEX NEGATIVE (Negative); URINE NITRITE-REFLEX NEGATIVE (Negative); URINE PROTEIN (DIPSTICK) 1+ (Negative); URINE SPECIFIC GRAVITY 1.015 (1.005-1.035); URINE UROBILINOGEN 0.2 E.U./dl (0.2-1.0)
[2020-11-21 06:46] LABS: HYALINE CASTS 0-3 Few /LPF (None Seen); MUCUS 0-3 Light strn/LPF (None Seen); SQUAMOUS 0-3 Few /LPF (0-3)
[2020-11-21 06:48] LABS: BACTERIA-REFLEX None Seen /HPF (None Seen); CRYSTALS None Seen /LPF (None Seen); URINE RBC None Seen /HPF (NONE SEEN); URINE WBC-REFLEX 0-5 Rare /HPF (0-5)
[2020-11-21 08:22] VITALS: BP 135/75
[2020-11-21 08:30] VITALS: BP 131/86
--- NOTE | 2020-11-21 09:26 | NUR ---
ADMISSION NOTE: PT TO UNIT APPROX 0830. UPON ARRIVAL TO ROOM, PT REMOVED NG TUBE AND STATED SHE WANTED TO BE DONE. PT THEN ASKED FOR ICE WATER. THIS RN INFORMED PT SHE IS HERE FOR N/V AND A POSSIBLE SBO. PT IS ALERT TO SELF. THIS RN CALLED PT DPOA HONORIO BOONE TO INFORM OF PT HOSPITAL STATUS. PT LIVES AT [facility], [facility] RESIDENT. PT DOES HAVE L ARM ROTATOR CUFF INJURY, RLE SHORTER THAN LLE, INCONTINENT B/B. SKIN INTACT. PT DPOA STATES PT HAS NOT BEEN DIAGNOSED WITH DEMENTIA, BUT IS FORGETFUL. PT DPOA ALSO STATES PT HAS POOR FINE MOTOR SKILLS, CANNOT PLUG IN CELL PHONE. ABNORMAL EKG FROM ED. THIS RN PAGED DR BROOKS, REPEAT EKG ORDERED. TROPONINS AND CARDIOLOGY CONSULT REQUESTED FROM PHYSICIAN.
--- NOTE | 2020-11-21 09:59 | EKG ---
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 : 1955 Requested By: Jyotsna Santo Order Number: [id number] MD: Mayito Keller Measurements Intervals [place] Rate: 104 P: 78 NE: 182 QRS: 242 QRSD: 87 T: 71 QT: 316 QTc: 416 Interpretive Statements Sinus tachycardia Right atrial enlargement LAD, consider left anterior fascicular block Low voltage, extremity leads Probable RVH w/ secondary repol abnormality Compared to ECG 07/20/2020 16:10:46 Low QRS voltage now present ST (T wave) deviation now present Sinus rhythm no longer present Left posterior fascicular block no longer present Right bundle-branch block no longer present Electronically Signed On 11-21-2020 9:59:43 CDT by Mayito Keller [email or web address] <ELECTRONICALLY SIGNED> By: Mayito Keller MD, [facility] 11/21/20958 2 2 Mayito Keller MD, [facility] /EPI
[2020-11-21] MEDS ORDERED: LOPERAMIDE2 MG PO (11:33)
[2020-11-21] MEDS ORDERED: ULTRAM50 MG PO (11:34)
[2020-11-21] MEDS ORDERED: VITAMIN C500 M1 PO (11:36)
[2020-11-21] MEDS ORDERED: APAP W/CODEINE1 TA2 PO (11:46)
[2020-11-21] MEDS ORDERED: LEFLUNOMIDE20 MG PO (11:59)
[2020-11-21] MEDS ORDERED: MUCINEX600 MG PO (12:02)
[2020-11-21] MEDS ORDERED: PREDNISONE 10 M10 MG PO (12:05)
[2020-11-21] MEDS ORDERED: BOOST237 M1 PO (12:08)
[2020-11-21] MEDS ORDERED: ALPHAGAN P5 ML OPHTHALMIC (12:10)
[2020-11-21] MEDS ORDERED: DULCOLAX STOOL100 M1 PO (12:12)
--- NOTE | 2020-11-21 12:38 | 2DMMODE ---
[facility] [place] [address] 2 D/M-MODE ECHOCARDIOGRAM Name: KATIE DUCKWORTH Room #: 353-P ADM IN M.R.#: [id number] Admission: 11/21/20 Attend Phys: Matt Carey MD Discharge: Date of : 51 Report #: [id number] THIS REPORT FOR: cc: Matt Carey MD, Neal A. MD Park, Jin S. MD ~ APPROVED REPORT Study performed: 11/21/2020 11:48:33 EXAM: Comprehensive 2D, Doppler, and color-flow Echocardiogram Patient Location: Bedside Room #: 353 Status: routine BSA: 1.23 HR: 104 bpm BP: 131/86 mmHg Rhythm: Tachycardia Other Information Study Quality: Fair/uncooperative/multiple emergency commode uses/unable to get all measurements. Technically limited study due to very thin body habitus, COPD.. Indications Abnormal ECG Hx: COPD, HTN, HLP, PVD, COVID 04/2020. 2D Dimensions IVSd: 8.40 (7-11mm) LVOT Diam: 18.91 (18-24mm) LVDd: 30.06 mm PWd: 8.08 (7-11mm) LVDs: 22.47 (25-40mm) Left Atrium: 25.97 (27-40mm) Aortic Root: 28.15 mm Volumes Left Atrial Volume (Systole) Single Plane 4CH: 11.66 mL Aortic Valve AoV Peak Christopher.: 0.93 m/s AO Peak Gr.: 3.44 mmHg LVOT Max P.39 mmHg [facility] [address] [place] [address] 2 D/M-MODE ECHOCARDIOGRAM Name: DONITAKATIE SINGLETON Room #: 353-P [facility] IN [facility]#: [id number] Admission: 11/21/20 Attend Phys: Matt Carey, Discharge: Date of : 53 Report #: [id number] LVOT Max V: 0.92 m/s WILTON Vmax: 2.79 cm2 Tricuspid Valve TR Peak Christopher.: 2.34 m/s TR Peak Gr.: 22.00 mmHg Left Ventricle The left ventricle is normal size. There is normal LV segmental wall motion. There is normal left ventricular wall thickness. Left ventricular systolic function is normal. LVEF is 65%. This study is not technically sufficient to allow evaluation of the LV diastolic function. Right Ventricle The right ventricle is normal size. The right ventricular systolic function is normal. Atria The left atrium size is normal. The right atrium size is normal. Aortic Valve The aortic valve is grossly normal. No aortic regurgitation is present. There is no aortic valvular stenosis. Mitral Valve Mitral valve leaflets are mildly thickened. There is no mitral valve regurgitation noted. No evidence of mitral valve stenosis. Tricuspid Valve The tricuspid valve is normal in structure. Trace tricuspid regurgitation. Estimated PAP 22mmHg plus the right atrial pressure. Pulmonic Valve Pulmonic valve is not well visualized. Great Vessels IVC is not visualized. Pericardium There is no pericardial effusion. <Conclusion> The left ventricle is normal size. [facility] [address] [address] 2 D/M-MODE ECHOCARDIOGRAM Name: KATIE DUCKWORTH Room #: 353-P ADM IN M.R.#: [id number] Admission: 11/21/20 Attend Phys: Matt Carey, Discharge: Date of : 51 Report #: [id number] There is normal left ventricular wall thickness. Left ventricular systolic function is normal. The right ventricle is normal size. The left atrium size is normal. The aortic valve is grossly normal. There is no mitral valve regurgitation noted. Trace tricuspid regurgitation. <ELECTRONICALLY SIGNED> By: Chris Alcantara MD 11/21/20 1237 1237 1237 Chris Alcantara MD /INF
--- NOTE | 2020-11-21 12:59 | EKG ---
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 : 1955 Requested By: Matt Carey Order Number: [id number] MD: Mayito Keller Measurements Intervals [place] Rate: 106 P: 81 ID: [id number] QRS: 241 QRSD: 81 T: 78 QT: 314 QTc: 417 Interpretive Statements Sinus tachycardia Abnormal R-wave progression, late transition Lateral leads are also involved Compared to ECG 07/20/2020 16:10:46 Sinus rhythm no longer present Atrial abnormality no longer present Left posterior fascicular block no longer present Right bundle-branch block no longer present Electronically Signed On 11-21-2020 12:59:19 CDT by Mayito Keller [email or web address] <ELECTRONICALLY SIGNED> By: Mayito Keller MD, FAC 11/21/20 1259 0400 0400 Mayito Keller MD, [facility] /EPI
--- NOTE | 2020-11-21 12:59 | NUR ---
THIS RN CALLED LAB RE: TERESA AT 1225. LAB IS ON WAY UP TO COLLECT
--- NOTE | 2020-11-21 13:00 | EKG ---
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 : 1955 Requested By: Matt Carey Order Number: [id number] MD: Mayito Keller Measurements Intervals [place] Rate: 104 P: 86 NV: 159 QRS: 243 QRSD: 90 T: 79 QT: 311 QTc: 409 Interpretive Statements Sinus tachycardia Right atrial enlargement Abnormal R-wave progression, late transition Lateral leads are also involved Compared to ECG 11/21/2020 04:00:04 Atrial abnormality now present Electronically Signed On 11-21-2020 13:00:14 CDT by Mayito Keller [email or web address] <ELECTRONICALLY SIGNED> By: Mayito Keller MD, [facility] 11/21/20 1300 040 040 Mayito Keller MD, [facility] /EPI
[2020-11-21 20:46] VITALS: BP 154/61
[2020-11-22 02:58] VITALS: BP 148/86
[2020-11-22 07:52] VITALS: BP 163/84
[2020-11-22 08:16] VITALS: BP 172/99
[2020-11-22 09:01] LABS: HEMATOCRIT 48.4 % (37.0-47.0); HEMOGLOBIN 15.2 gm/dL (12.0-15.0); MCH 29.7 pg (26.0-34.0); MCHC 31.4 g/dL (28.0-37.0); MCV 94.5 fL (80.0-100.0); RBC 5.12 mil/uL (4.20-5.00); RDW 15.4 % (10.5-14.5); WBC 16.9 thou/uL (4.0-11.0)
[2020-11-22 09:12] LABS: CALCIUM 9.9 mg/dL (8.5-10.1); CREATININE 1.1 mg/dL (0.6-1.0); POTASSIUM 3.4 mmol/L (3.5-5.1)
[2020-11-22 15:52] VITALS: BP 153/73
[2020-11-22 19:30] VITALS: BP 150/84
--- NOTE | 2020-11-22 20:43 | NUR ---
Pt alert and oriented x4. ANXIOUS ABOUT MISSING EYE APPOINTMENT X2 NOW. 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 HRR UNLABORED ON 2LNC. NBED DOWN CALL LIGHT IN REACH. BED ALARM ON. NO S/S DISTRESS PRESENTLLY NO C.O PAIN.
[2020-11-23 04:02] LABS: HEMATOCRIT 42.2 % (37.0-47.0); HEMOGLOBIN 13.9 gm/dL (12.0-15.0); MCH 30.3 pg (26.0-34.0); MCHC 32.9 g/dL (28.0-37.0); MCV 92.2 fL (80.0-100.0); RBC 4.57 mil/uL (4.20-5.00); RDW 15.2 % (10.5-14.5); WBC 8.8 thou/uL (4.0-11.0)
[2020-11-23 04:20] LABS: CALCIUM 9.4 mg/dL (8.5-10.1); CREATININE 0.9 mg/dL (0.6-1.0)
[2020-11-23 04:35] VITALS: BP 148/90
[2020-11-23 04:48] LABS: POTASSIUM 2.9 mmol/L (3.5-5.1)
[2020-11-23 07:18] VITALS: BP 148/86
--- NOTE | 2020-11-23 08:01 | NUR ---
PT PROGRESSING TOWARDS D/C GOALS. VSS. STILL HAVING LIQUID STOOLS. C/O COUGH . MEDICATED WITH GUAIFFENISIN - CODEINE COUGH MEDICINE. KCL 20 MEQ STARTED FOR K 2.9. ALSO PO POTASSIUM STARTED. PT ANXIOUS TO BE GOING HOME IF DR BROOKS LETS HER GO HOME. PROGRESSING SLOWLY TOWARDS D/C GOALS. ENC PT TO TRY TO TURN IN BED.
[2020-11-23 15:16] VITALS: BP 134/83
[2020-11-23 19:04] VITALS: BP 137/74
--- NOTE | 2020-11-23 23:45 | NUR ---
PT ALERT AND ORIENTED X4. VSS AFEBRILE. PT UNABORED ON 2LNC. SR ON MONITOR. UP TO BSC WITH 1 PERSON ASSIST. NO BREAKDOWN NOTED. TYLENOL GIVEN FOR BILATERAL SHOULDER PAIN FROM ARTHTITIS. SHE IS NOW SLEEPING QUIETLY. NO S/S DISTRESS. BED DOWN CALL LIGHT IN REACH. BED ALARM IS ON.
[2020-11-24 03:20] VITALS: BP 153/88
--- NOTE | 2020-11-24 06:04 | NUR ---
PT PROGRESSING TOWARDS D/C GOALS. VSS. NO C/O SOA ON 2LNC. NO LOOSE STOOLS TONIGHT. PT ANXIOUS TO BE GOING BACK TO SNF. DENIED PAIN HIS AM.
[2020-11-24 06:15] LABS: CALCIUM 9.1 mg/dL (8.5-10.1); CREATININE 1.1 mg/dL (0.6-1.0); POTASSIUM 3.3 mmol/L (3.5-5.1)
[2020-11-24 07:41] VITALS: BP 142/90
[2020-11-24 09:43] VITALS: BP 142/90
--- NOTE | 2020-11-24 11:09 | NUR ---
INITIAL ASSESSMENT/DISCHARGE NOTE: Received consult. GUILLERMO reviewed chart and spoke with nursing. Pt was admitted from [facility] due to nausea/vomiting. Pt is medically stable to discharge today. Orders written for HH services. GUILLERMO met with pt at bedside. Introduced role of SW. Pt is alert/orientated x 4. Pt states she is ready to discharge. Pt has a walker and w/c at the facility. Pt was recently on service for HH, but has been discharged. Pt unsure name of HH provider. Pt is normally on 2L of O2 at home. Home O2 provided by [facility]. GUILLERMO discussed plan for HH services. Pt is agreeable and requests SW follow up with Tom at the facility to find out the name of HH provider. GUILLERMO offered to contact pt's DPOA, Sumi, to provide update. Pt declines offer and states that Sumi is working and she will update her at a later time. GUILLERMO spoke with Tom, Director at [facility], who states they use [facility]. Tom confirms they are able to accept pt back today. [facility] does not have transportation services. GUILLERMO arranged w/c van with O2 through [employer] for [phone]. GUILLERMO notified Director of Case Mgmt of transportation arrangements. GUILELRMO faxed clinical info and discharge ppwk to both [facility] and [facility]. Received confirmations. [facility]MO [facility], to notify of new referral. Start of care planned for tomorrow at the facility. Contact info for HH placed in pt's discharge summary. GUILLERMO provided nursing with number to call report. No additional SW needs identified at this time, but is available to assist should needs arise.
== END 2020-11-24 13:36 | disposition home health service (06) | DRG 388 ==
LOC: ER 03:46 → 3W 08:59 → EROBS 08:59 → 3W 09:00
PROVIDERS: Emergency Medicine; ADMIT Family Medicine; ATTEND Family Medicine
DX: K56.601 Complete intestinal obstruction, unspecified as to cause (principal); N17.0 Acute kidney failure with tubular necrosis; J96.20 Acute and chronic respiratory failure, unspecified whether with hypoxia or hypercapnia; N17.9 Acute kidney failure, unspecified; N18.30 Chronic kidney disease, stage 3 unspecified; M06.9 Rheumatoid arthritis, unspecified; J44.9 Chronic obstructive pulmonary disease, unspecified; D50.9 Iron deficiency anemia, unspecified; R94.31 Abnormal electrocardiogram [ECG] [EKG]; E87.6 Hypokalemia; E03.9 Hypothyroidism, unspecified; I12.9 Hypertensive chronic kidney disease with stage 1 through stage 4 chronic kidney disease, or unspecified chronic kidney disease; F32.9 Major depressive disorder, single episode, unspecified; E78.5 Hyperlipidemia, unspecified; I73.9 Peripheral vascular disease, unspecified; F41.9 Anxiety disorder, unspecified; Z86.16 Personal history of COVID-19; Z79.899 Other long term (current) drug therapy; Z88.8 Allergy status to other drugs, medicaments and biological substances; Z87.891 Personal history of nicotine dependence
CPT/HCPCS: 10080; 10879

== ENCOUNTER 2021-01-08 09:36 | Emergency (ER) | payer OTHER, MEDICARE ==
[~2021-01-08] VITALS: Ht 121.9 cm; Wt 35.4 kg
--- NOTE | ~2021-01-08 | EMS ---
[address] [address] EMS Patient Care Report Name: KATIE DUCKWORTH Room #: DEP IKE Mcintyre#: [id number] Admission: 01/08/21 Attend Phys: Discharge: 01/08/21 Date of : 51 Report #: [id number] THIS REPORT FOR: //name// Report Transmitted: 01/09/2021 12:42 EMS Care Summary [place], [place]/[facility] Incident [id number] @ 01/08/2021 09:11 Incident Location [id number] [place] [address] Patient KATIE DUCKWORTH Female, 65 Years 1955 Patient Address [id number] [place], [place] [id number] Patient History Chronic Obstructive Pulmonary Disease (COPD),Gastro-Esophageal Reflux Disease (GERD),Hypothyroidism, Patient Allergies No known allergies, Patient Medications None Reported, Chief Complaint PAIN DUE TO A FALL Disposition Transported No Lights/[place] Dispatch Reason Falls Transported To [facility] Narrative M36 ARRIVED ON SCENE AND MADE CONTACT WITH THE PT AND NH STAFF. THE PT WAS SITTING ON HER BED WITH 2L OF O2 VIA NASSAL CANNULA. NH STAFF STATED THAT A RESIDENT INFORMED THEM THAT THE PT HAD FALLEN IN HER BATHROOM AND NEEDED [address] [address] EMS Patient Care Report Name: KATIE DUCKWORTH Room #: DEP ER JanesLeila#: [id number] Admission: 01/08/21 Attend Phys: Discharge: 01/08/21 Date of : 51 Report #: [id number] ASSISTANCE. ID STAFF ALSO REPORTED MINOR LACERATIONS TO THE PT'S RIGHT LOWER BACK. VITALS TAKEN. THE PT WAS ASSISTED TO THE STRETCHER WHERE SEATBELTS WERE APPLIED ALONG WITH SWITCHING HER TO OUR OXYGEN BOTTLE. ONCE THE PT WAS IN THE AMBULANCE SHE WAS PLACED ON APPROX. 5 LPM TO ASSIST WITH GETTING HER OXYGEN PERCENTAGE HIGHER, WHICH WAS SUCCESSFUL. UPON ARRIVAL AT [facility] THE PT WAS TEAM LIFTED FROM THE STRETCHER TO THE ER BED. REPORT GIVEN TO NURSE. Initial Vitals @09:29P: 92,R: 14,BP: 139/63,Pain: 2/10,GCS: 15,CO: 8,SpO2: 95,Revised Trauma: 12, @09:25P: 99,R: 14,BP: 135/65,Pain: 2/10,GCS: 15,Revised Trauma: 12, Assessments @09:22MENTAL:Person Oriented,Event Oriented,Time Oriented,Place Oriented,SKIN:HEENT:Head/Face: No Abnormalities,Neck/Airway: No Abnormalities,LUNG SOUNDS:General: No Abnormalities,Left Upper: No Abnormalities,Right Upper: No Abnormalities,Left Lower: No Abnormalities,Right Lower: No Abnormalities,ABDOMEN:General: No Abnormalities,Left Upper: No Abnormalities,Right Upper: No Abnormalities,Left Lower: No Abnormalities,Right Lower: No Abnormalities,PELVIS//GI:No Abnormalities,EXTREMITIES:Capillary Refill: Right Upper: < 2 Sec,Left Arm: No Abnormalities,Right Arm: No Abnormalities,Left Leg: No Abnormalities,Right Leg: No Abnormalities,PULSE:Radial: 2+ Normal,NEURO:No Abnormalities, Impression Generalized Weakness Procedures @09:22ALS AssessmentResponse: UnchangedSucceeded@09:22BLS AssessmentResponse: Unchanged@09:23Oxygen FlowRate: 5 Device: Nasal Cannula (NC) Response: ImprovedSucceeded Timeline 09:,Call Received 09:09,Dispatch Notified 09:11,Dispatched 09:12,En Route 09:19,On Scene 09:22,At Patient 09:22,ALS Assessment,Response: UnchangedSucceeded, 09:,BLS Assessment,Response: Unchanged 09:23,Oxygen FlowRate: 5 Device: Nasal Cannula (NC) Response: ImprovedSucceeded, 09:25,BP: 135/65 M,PULSE: 99,RR: 14 R,SPO2: Ox,ETCO2: ,BG: ,PAIN: 2,GCS: 15, 09:27,Depart Scene 09:29,BP: 139/63 M,PULSE: 92,RR: 14 R,SPO2: 95 Ox,ETCO2: ,BG: ,PAIN: 2,GCS: 15, 09:33,At Destination [facility] [address] [place] [address] EMS Patient Care Report Name: KATIE DUCKWORTH Room #: DEP Miguelina#: [id number] Admission: 01/08/21 Attend Phys: Discharge: 01/08/21 Date of : 51 Report #: [id number] 09:45,Call Closed Disclaimer v1.1 Copyright 202 [email or web address] This EMS Care Summary contains data elements from the applicable legal record (which may be displayed differently). It is designed to provide pertinent information for the following purposes: continuity of care, clinical quality, and state data reporting. The complete legal record is available to ED staff and administrators of the receiving hospital in [employer] Patient Tracker. All data is provided "as is."
[~2021-01-08 09:36] MED LIST changes: +ALPHAGAN P5 ML OPHTHALMIC; +APAP W/CODEINE1 TA2 PO; +BOOST237 M1 PO; +DULCOLAX STOOL100 M1 PO; +LEFLUNOMIDE20 MG PO; +LOPERAMIDE2 MG PO; +MUCINEX600 MG PO; +ULTRAM50 MG PO; +VITAMIN C500 M1 PO
[2021-01-08 10:11] LABS: HEMATOCRIT 40.2 % (37.0-47.0); HEMOGLOBIN 12.9 gm/dL (12.0-15.0); MCH 29.8 pg (26.0-34.0); MCHC 32.1 g/dL (28.0-37.0); MCV 92.7 fL (80.0-100.0); PLATELET COUNT 221 thou/uL (150-400); RBC 4.33 mil/uL (4.20-5.00); RDW 15.7 % (10.5-14.5); WBC 17.1 thou/uL (4.0-11.0)
[2021-01-08 10:15] LABS: CALCIUM 10.2 mg/dL (8.5-10.1); CREATININE 0.9 mg/dL (0.6-1.0); POTASSIUM 4.5 mmol/L (3.5-5.1)
[2021-01-08 10:23] LABS: ALBUMIN 2.9 g/dL (3.4-5.0); TOTAL BILIRUBIN 0.5 mg/dL (0.2-1.0); TOTAL PROTEIN 7.4 g/dL (6.4-8.2)
[2021-01-08 10:50] LABS: ABSOLUTE NEUTROPHILS 16.8 thou/uL (1.4-8.2)
[2021-01-08 10:51] LABS: ANISOCYTOSIS 1+
[2021-01-08 11:50] VITALS: BP 130/67
[2021-01-13] MEDS ORDERED: ASPERCREME1 EACH TOP (04:54)
[2021-01-13] MEDS ORDERED: BRIMONIDINE 0.110 ML EA. EYE (04:57)
[2021-01-13] MEDS ORDERED: PROTONIX40 M2 PO (05:02)
== END 2021-01-08 11:50 ==
LOC: ER 09:36
PROVIDERS: Emergency Medicine
DX: M54.9 Dorsalgia, unspecified (principal); N18.30 Chronic kidney disease, stage 3 unspecified; J44.9 Chronic obstructive pulmonary disease, unspecified; E03.9 Hypothyroidism, unspecified; I12.9 Hypertensive chronic kidney disease with stage 1 through stage 4 chronic kidney disease, or unspecified chronic kidney disease; F32.9 Major depressive disorder, single episode, unspecified; F41.9 Anxiety disorder, unspecified; Z79.899 Other long term (current) drug therapy; Z87.891 Personal history of nicotine dependence; Z88.6 Allergy status to analgesic agent; Z88.5 Allergy status to narcotic agent; W18.39XA Other fall on same level, initial encounter; Y93.89 Activity, other specified; Y92.89 Other specified places as the place of occurrence of the external cause; Y99.8 Other external cause status